=== PATIENT | female | born 1950 | race Two or more races ===

== ENCOUNTER → 2016-06-15 | Outpatient (CLI) | payer BC ==
--- NOTE | 2016-06-15 13:24 | US ---
EXAMINATION TYPE: US kidneys/renal and bladder DATE OF EXAM: 06/15/2016 12:42 PM COMPARISON: NONE CLINICAL HISTORY: 66-year-old female I10 hypertension. History of UTI. TECHNIQUE: Multiple sonographic images of the kidneys and bladder were obtained. FINDINGS: Right Kidney: 9.0 x 3.5 x 3.6cm without hydronephrosis. Left Kidney: 9.3 x 4.4 x 4.2cm without hydronephrosis. Underdistention of the bladder limits its evaluation. Neither ureteral jet is seen during the course of the exam. IMPRESSION: Renal measurements as above. No hydronephrosis on either side.
== END ==
LOC: RADUSWWP 12:02
PROVIDERS: ATTEND Family Medicine
DX: I10 Essential (primary) hypertension (principal); Z87.440 Personal history of urinary (tract) infections
CPT/HCPCS: 76770

== ENCOUNTER → 2016-07-17 | Outpatient (CLI) | payer BC ==
--- NOTE | 2016-07-18 10:17 | MM ---
Reason for exam: screening (asymptomatic). Last mammogram was performed 1 year and 1 month ago. History: Patient is postmenopausal and has history of high-risk lesion on a previous biopsy at age 58. Benign right breast needle localzation of the right breast, January 28, 2009. High risk right mammotome panel of the right breast, January 14, 2009. Benign cyst aspiration of the left breast. Physical Findings: A clinical breast exam by your physician is recommended on an annual basis and results should be correlated with mammographic findings. MG Screening Mammo w CAD Bilateral CC and MLO view(s) were taken. Prior study comparison: June 21, 2015, bilateral MG screening mammo w CAD. February 10, 2013, bilateral digital screening mammo w/CAD. The breast tissue is heterogeneously dense. This may lower the sensitivity of mammography. Finding: There are typically benign calcifications in both breasts. No significant changes in finding since June 21, 2015 and February 10, 2013. ASSESSMENT: Benign, BI-RAD 2 RECOMMENDATION: Routine screening mammogram of both breasts in 1 year.
== END | disposition home or self-care (01) ==
LOC: RADMAMWWP 08:04
PROVIDERS: ATTEND Family Medicine
DX: Z12.31 Encounter for screening mammogram for malignant neoplasm of breast (principal)

== ENCOUNTER 2016-07-28 15:55 | Inpatient (IN) | payer BC, MEDICARE ==
--- NOTE | 2016-07-28 16:27 | ED ---
Neuro HPI - General Chief Complaint: Neuro Symptoms/Deficit Stated Complaint: TIA Time Seen by Provider: 07/28/16 16:00 Source: patient, family, EMS, RN notes reviewed Mode of arrival: EMS Limitations: no limitations - History of Present Illness Is the patient presenting with stroke symptoms?: No Initial Comments: This is a 66-year-old female with a history of hypertension and cholecystectomy and a history of colitis no prior history of heart or cervical mass or disease who had the sudden onset about one hour ago of left facial droop and left-sided weakness. Patient states she was going the bathroom was on the toilet for long period time she felt abdominal discomfort and cramps she has some shaking. Her son was present was a nurse and did notice that she had some left facial droop and left upper and lower extremity weakness. This did relatively quickly resolved. Currently she is asymptomatic she denies any headache dizziness blurry vision nausea vomiting or other symptoms - Related Data Home Medications: Home Medications Medication Instructions Recorded Confirmed Pentosan Polysulfate Sodium 100 mg PO TID 02/23/14 07/28/16 [Elmiron] Travoprost [Travatan Z 0.004%] 1 drop BOTH EYES HS 02/23/14 07/28/16 amLODIPine BESYLATE [Amlodipine 5 mg PO QAM 02/23/14 07/28/16 Besylate] Calcium Carbonate [Calcium] 1,200 mg PO DAILY 07/28/16 07/28/16 Cholecalciferol [Vitamin D3] 1,000 unit PO DAILY 07/28/16 07/28/16 Hydrochlorothiazide [Hydrodiuril] 25 mg PO QAM 07/28/16 07/28/16 Valsartan [Diovan] 320 mg PO W/SUPPER 07/28/16 07/28/16 Allergies/Adverse Reactions: Allergies Allergy/AdvReac Type Severity Reaction Status Date / Time codeine AdvReac Nausea/Vomi Verified 07/28/16 17:23 ting/Vertig o Review of Systems ROS Statement: Those systems with pertinent positive or pertinent negative responses have been documented in the HPI. ROS Other: All systems not noted in ROS Statement are negative. General Exam Limitations: no limitations Stroke MDM - Lab Data Result diagrams: 07/28/16 16:15 07/28/16 16:15 Lab Results 07/28/16 07/28/16 07/28/16 Range/Units 16:15 16:15 16:15 WBC 4.9 (3.8-10.6) k/uL RBC 3.91 (3.80-5.40) m/uL Hgb 12.0 (11.4-16.0) gm/dL Hct 34.3 (34.0-46.0) % MCV 87.9 (80.0-100.0) fL MCH 30.7 (25.0-35.0) pg MCHC 34.9 (31.0-37.0) g/dL RDW 12.5 (11.5-15.5) % Plt Count 257 (150-450) k/uL Neutrophils % 69 % Lymphocytes % 21 % Monocytes % 5 % Eosinophils % 1 % Basophils % 1 % Neutrophils # 3.4 (1.3-7.7) k/uL Lymphocytes # 1.0 (1.0-4.8) k/uL Monocytes # 0.3 (0-1.0) k/uL Eosinophils # 0.1 (0-0.7) k/uL Basophils # 0.0 (0-0.2) k/uL PT (9.0-12.0) sec INR (<1.1) APTT (22.0-30.0) sec Sodium 141 (137-145) mmol/L Potassium 3.3 L (3.5-5.1) mmol/L Chloride 105 (98-107) mmol/L Carbon Dioxide 26 (22-30) mmol/L Anion Gap 10 mmol/L BUN 19 H (7-17) mg/dL Creatinine 1.24 H (0.52-1.04) mg/dL Est GFR (MDRD) Af Amer 53 (>60 ml/min/1.73 sqM) Est GFR (MDRD) Non-Af 43 (>60 ml/min/1.73 sqM) Glucose 197 H (74-99) mg/dL Calcium 9.7 (8.4-10.2) mg/dL Magnesium (1.6-2.3) mg/dL Total Bilirubin 0.5 (0.2-1.3) mg/dL AST 25 (14-36) U/L ALT 28 (9-52) U/L Alkaline Phosphatase 54 (38-126) U/L Total Creatine Kinase 68 (30-135) U/L CK-MB (CK-2) 0.9 (0.0-2.4) ng/mL CK-MB (CK-2) Rel Index 1.3 Troponin I <0.012 (0.000-0.034) ng/mL Total Protein 6.5 (6.3-8.2) g/dL Albumin 4.0 (3.5-5.0) g/dL 07/28/16 07/28/16 Range/Units 16:15 16:15 WBC (3.8-10.6) k/uL RBC (3.80-5.40) m/uL Hgb (11.4-16.0) gm/dL Hct (34.0-46.0) % MCV (80.0-100.0) fL MCH (25.0-35.0) pg MCHC (31.0-37.0) g/dL RDW (11.5-15.5) % Plt Count (150-450) k/uL Neutrophils % % Lymphocytes % % Monocytes % % Eosinophils % % Basophils % % Neutrophils # (1.3-7.7) k/uL Lymphocytes # (1.0-4.8) k/uL Monocytes # (0-1.0) k/uL Eosinophils # (0-0.7) k/uL Basophils # (0-0.2) k/uL PT 10.7 (9.0-12.0) sec INR 1.1 (<1.1) APTT 21.1 L (22.0-30.0) sec Sodium (137-145) mmol/L Potassium (3.5-5.1) mmol/L Chloride (98-107) mmol/L Carbon Dioxide (22-30) mmol/L Anion Gap mmol/L BUN (7-17) mg/dL Creatinine (0.52-1.04) mg/dL Est GFR (MDRD) Af Amer (>60 ml/min/1.73 sqM) Est GFR (MDRD) Non-Af (>60 ml/min/1.73 sqM) Glucose (74-99) mg/dL Calcium (8.4-10.2) mg/dL Magnesium 2.0 (1.6-2.3) mg/dL Total Bilirubin (0.2-1.3) mg/dL AST (14-36) U/L ALT (9-52) U/L Alkaline Phosphatase (38-126) U/L Total Creatine Kinase (30-135) U/L CK-MB (CK-2) (0.0-2.4) ng/mL CK-MB (CK-2) Rel Index Troponin I (0.000-0.034) ng/mL Total Protein (6.3-8.2) g/dL Albumin (3.5-5.0) g/dL - NIH Stroke Scale 1a. Level of Consciousness: (0) alert 1b. LOC Questions: (0) answers correctly 1c. LOC Commands: (0) performs tasks correctly 2. Best Gaze: (0) normal 3. Visual: (0) no visual loss 4. Facial Palsy: (0) normal symmetrical movement 5a. Motor Arm Left: (0) no drift 5b. Motor Arm Right: (0) no drift 6a. Motor Leg Left: (0) no drift 6b. Motor Leg Right: (0) no drift 7. Limb Ataxia: (0) absent 8. Sensory: (0) normal 9. Best Language: (0) no aphasia 10. Dysarthria: (0) normal 11. Extinction/Inattention: (0) no abnormality - Medical Decision Making I did discuss the findings with the patient family members. Patient does demonstrate evidence of a TIA. Her symptoms have totally resolved at did discuss the case with the admitting physician patient be admitted - EKG Data -: EKG Interpreted by Me EKG shows normal: sinus rhythm, axis, intervals, QRS complexes, ST-T waves Rate: normal (EKG shows a normal sinus rhythm of 70 LA interval 136 QRS duration 92 QT/QTC of 44/466 this is a normal-appearing EKG.) Past Medical History Past Medical History: Eye Disorder, GERD/Reflux, Hyperlipidemia, Hypertension Additional Past Medical History / Comment(s): GLAUCOMA LIZ EYES. ON RX FOR BLADDER CONTROL PROB. History of Any Multi-Drug Resistant Organisms: None Reported Past Surgical History: Breast Surgery Additional Past Surgical History / Comment(s): RT BREAST BX. EGD. Past Psychological History: No Psychological Hx Reported Smoking Status: Former smoker Past Alcohol Use History: Rare Past Drug Use History: None Reported - Past Family History Father Family Medical History: Cancer Course Vital Signs 07/28/16 07/28/16 16:04 17:11 Temperature 97.6 F Pulse Rate 68 75 Respiratory 18 18 Rate Blood Pressure 136/63 105/55 O2 Sat by Pulse 100 98 Oximetry - Reevaluation(s) Reevaluation #1: 07/28/16 17:37 Reevaluation the patient is return from CAT scan revealed no acute findings. Critical Care Time Critical Care Time: Yes Critical Care Time: 31 minutes of critical care time which includes initial presentation with history physical labs and x-rays reevaluation patient several occasions discussion with the patient family members regarding findings discussed with the admitting service admission orders and documentation of the above. Disposition Clinical Impression: Transient cerebral ischemia Disposition: ADMITTED IP TO THIS HOSP Condition: Stable Referrals: Mikala Mathis III, MD [Primary Care Provider] - 1-2 days
[2016-07-28 16:42] LABS: Basophils % (A) 1 %; CH 30.6; Eosinophils # (A) 0.1 k/uL (0-0.7); Eosinophils % (A) 1 %; HCT 34.3 % (34.0-46.0); HDW 2.58; Luc % (Auto) 2; Lymphocytes % (A) 21 %; MCH 30.7 pg (25.0-35.0); MCHC 34.9 g/dL (31.0-37.0); MCV 87.9 fL (80.0-100.0); Monocytes # (A) 0.3 k/uL (0-1.0); Monocytes % (A) 5 %; Neutrophils # (A) 3.4 k/uL (1.3-7.7); Neutrophils % (A) 69 %; RBC 3.91 m/uL (3.80-5.40); RDW 12.5 % (11.5-15.5); WBC 4.9 k/uL (3.8-10.6); WBC (Perox) 4.94
[2016-07-28 16:52] LABS: Calcium 9.7 mg/dL (8.4-10.2); Potassium 3.3 mmol/L (3.5-5.1); Total Bilirubin 0.5 mg/dL (0.2-1.3); Total Protein 6.5 g/dL (6.3-8.2)
[2016-07-28 16:59] LABS: INR 1.1 (<1.1); Prothrombin Time 10.7 sec (9.0-12.0)
--- NOTE | 2016-07-28 16:59 | CT ---
EXAMINATION TYPE: CT brain wo con for TPA DATE OF EXAM: 07/28/2016 4:54 PM COMPARISON: NONE HISTORY: Syncopal episode today without injury CT DLP: 1112 mGycm Automated exposure control for dose reduction was used. FINDINGS: Ventricles and sulci are within normal limits. There is no mass effect nor midline shift. There is no sign of intracranial hemorrhage. I see no sign of a cerebral infarct. Calvarium is intact. IMPRESSION: Negative unenhanced head CT scan.
[2016-07-28 17:02] LABS: Partial Thromboplastin Time 21.1 sec (22.0-30.0)
--- NOTE | 2016-07-28 17:04 | XR ---
EXAMINATION TYPE: XR chest 2V DATE OF EXAM: 07/28/2016 4:59 PM COMPARISON: 10/10/2012 HISTORY: Left-sided facial droop TECHNIQUE: Frontal and lateral views of the chest are obtained. FINDINGS: Heart and mediastinum are normal. Lungs are clear. Diaphragm is normal. There are chest le ads. Bony thorax is intact. IMPRESSION: Normal chest. No change.
[2016-07-28 17:06] LABS: Creatine Kinase 68 U/L (30-135)
[2016-07-28 17:17] LABS: Creatine Kinase MB 0.9 ng/mL (0.0-2.4); Troponin I <0.012 ng/mL (0.000-0.034)
[2016-07-28] MEDS ORDERED: ASPIRIN 81 MG CHEW PO STA (17:30)
[2016-07-28] MEDS: SODIUM CHLORIDE 0.9% 1,000 ML IV SCH (18:12)
[2016-07-28 18:27] VITALS: BMI 22.8
[2016-07-28] MEDS ORDERED: Potassium Replacement Protocol 1 EACH MISC MISCELLANE PRN (18:49)
[2016-07-28] MEDS ORDERED: POTASSIUM CHLORIDE ER 20 MEQ TAB.ER PO SCH (19:00)
[2016-07-28] MEDS: ACETAMINOPHEN TAB 325 MG TAB PO PRN (20:51)
[2016-07-28] MEDS: LATANOPROST 0.005% OPHTH DROPS 2.5 ML BTL BOTH EYES SCH (22:40)
[2016-07-28 23:14] LABS: Appearance,Urine Clear (Clear); Bilirubin,Urine Negative (Negative); Glucose,Urine (UA) Negative (Negative); Ketones,Urine Negative (Negative); Leukocyte Esterase,Urine Small (Negative); Mucus,Urine Rare /hpf; Nitrite,Urine Negative (Negative); PH, Urine 5.5 (5.0-8.0); Particle Count 436; Protein,Urine Negative (Negative); Specific Gravity,Urine 1.004 (1.001-1.035); Squamous Epithelial Cell,Urine <1 /hpf (0-4); UA Billing (MACRO vs. MICRO) MICRO; Urobilinogen,Urine <2.0 mg/dL (<2.0); WBC,Urine 4 /hpf (0-5)
[2016-07-29 04:38] LABS: Cholesterol 193 mg/dL (<200); HDL Cholesterol 66 mg/dL (40-60); Triglycerides 137 mg/dL (<150)
[2016-07-29] MEDS: HYDROCHLOROTHIAZIDE 25 MG TAB PO SCH (08:23)
[2016-07-29] MEDS: amLODIPine 5 MG TAB PO SCH (08:23)
--- NOTE | 2016-07-29 08:59 | US ---
EXAMINATION TYPE: US carotid duplex BILAT DATE OF EXAM: 07/29/2016 COMPARISON: NONE CLINICAL HISTORY: Stenosis. Syncope EXAM MEASUREMENTS: RIGHT: Peak Systolic Velocity (PSV) cm/sec ----- Right CCA: 62.7 ----- Right ICA: 121.0 ----- Right ECA: 79.0 ICA/CCA ratio: 1.9 RIGHT: End Diastole cm/sec ----- Right CCA: 21.7 ----- Right ICA: 38.6 ----- Right ECA: 14.2 LEFT: Peak Systolic Velocity (PSV) cm/sec ----- Left CCA: 85.6 ----- Left ICA: 153.5 ----- Left ECA: 81.2 ICA/CCA ratio: 1.8 LEFT: End Diastole cm/sec ----- Left CCA: 29.6 ----- Left ICA: 45.1 ----- Left ECA: 7.6 VERTEBRALS (direction of flow): Right Vertebral: Antegrade Left Vertebral: Antegrade Slightly elevated velocities bilateral ICA's, otherwise no evidence of significant stenosis seen IMPRESSION: Slightly elevated velocities bilateral ICA's, otherwise no evidence of significant steno sis seen scattered calcified plaque. Criteria for Assigning % of Stenosis / Diameter reduction (Estimation based on the indirect measurements of the internal carotid artery velocities (ICA PSV). 1. Normal (no stenosis)=ICA PSV < 125 cm/s: ratio < 2.0: ICA EDV<40 cm/s. 2. Less than 50% stenosis=ICA PSV < 125 cm/s: ratio < 2.0: ICA EDV<40 cm/s. 3. 50 to 69% stenosis=ICA PSV of 125 to 230 cm/s: ration 2.0 ? 4.0: ICA EDV 40-100 cm/s. 4. Greater than 70% stenosis to near occlusion= ICA PSV > 230 cm/s: ratio > 4.0: ICA EDV > 100 cm/s. 5. Near occlusion= ICA PSV velocities may be low or undetectable: variable ratio and ICA EDV. 6. Total occlusion=unable to detect flow.
[2016-07-29] MEDS: ELMIRON 100 MG PO SCH ×4 (11:31→20:56)
[2016-07-29] MEDS ORDERED: ASPIRIN 325 MG TAB PO SCH (12:00)
[2016-07-29 12:36] LABS: Anion Gap 9 mmol/L; Blood Urea Nitrogen 12 mg/dL (7-17); Calcium 9.3 mg/dL (8.4-10.2); Carbon Dioxide 23 mmol/L (22-30); Chloride 105 mmol/L (98-107); Glucose 92 mg/dL (74-99); Non-African American GFR(MDRD) >60 (>60 ml/min/1.73 sqM); Potassium 3.9 mmol/L (3.5-5.1); Sodium 137 mmol/L (137-145)
[2016-07-29] MEDS: CHOLECALCIFEROL 1,000 UNIT TAB PO SCH (13:40)
[2016-07-29] MEDS: CALCIUM CARBONATE PO SCH (13:40)
--- NOTE | 2016-07-29 14:07 | P.CNNES ---
History of Present Illness Consult date: 07/29/16 Reason for Consult: Patient being evaluated for TIA and left-sided weakness. History of Present Illness: This patient is a 66-year-old right-handed white female who was in her usual state of health until early this morning. Patient states she was having some abdominal cramping and some GI symptoms and decided to go to the bathroom. She was sitting on the toilet for an extended period of time due to abdominal discomfort and muscle cramping. Apparently her son who is a nurse went to check on her and found that she was appearing to be confused and dazed. He helped her out of the bathroom and helped her sit in a chair and apparently she was noted to have left-sided facial droop as well as left arm weakness. Being a nurse he did check immediately to see if she may have symptoms for stroke. According to the son who was at bedside today she was unable to lift her left arm due to heaviness and weakness. She was also noted to have left facial asymmetry. There was also some degree of weakness in the right arm as well but clearly the left arm was the worse in terms of weakness. The son also noted that she was having difficulty with expressing her thoughts. Her speech was slightly slurred. The entire episode lasted for about 5-10 minutes in duration. Son did call EMS immediately and by the time they had arrived her symptoms had been resolving to almost 80-90%. The patient was transported by EMS to the emergency room. She was seen in the ER at [facility] by Dr. Petit. Her NIH stroke scale was reviewed and was 0 in the ER. She was recommended admission for evaluation of TIA. Patient states that she is never had this type of episode previously. She did undergo a computed tomography scan of the brain in the ER which was reported negative for any acute changes. She underwent a carotid Doppler ultrasound today which revealed only slightly elevated bilateral ICA velocities. There was no evidence for significant carotid artery stenosis. When questioned about stroke risk factors patient states that she does have hard to control hypertension. She has been based on several medications by her primary care physician with poor control of her blood pressures. Apparently she has a labile hypertension with blood pressures ranging in the 200 range and dropping down into the 60 range for systolic blood pressure. The patient had seen her gas well drilling manager 3 years ago and underwent a cardiac catheterization. We have recommended that she have a cardiology consultation for reassessment now given this recent TIA. Her most recent serum cholesterol as per the patient was 238. She has tried simvastatin in the past but had to discontinue this due to muscle cramps and myalgias. The patient states that she feels she is back to normal with no further deficits. Her clinical history is consistent with acute right hemispheric TIA. We have recommended a complete stroke evaluation for the patient. Her overall prognosis at this time remains guarded. This case was discussed at length with the patient as well as her and son at bedside. All of their questions were answered. Neurology is now been consulted for further evaluation and recommendations. Review of Systems Constitutional: Denies chills, Denies fever Eyes: denies blurred vision, denies pain Ears, nose, mouth and throat: Denies headache, Denies sore throat Cardiovascular: Denies chest pain, Denies shortness of breath Respiratory: Denies cough Gastrointestinal: Denies abdominal pain, Denies diarrhea, Denies nausea, Denies vomiting Genitourinary: Denies dysuria, Denies hematuria Musculoskeletal: Denies myalgias Integumentary: Denies pruritus, Denies rash Neurological: Reports aphasia, Reports change in mentation, Reports change in speech, Reports motor disturbance, Reports paralysis, Reports paresthesias, Reports tingling, Denies numbness, Denies weakness Psychiatric: Denies anxiety, Denies depression Endocrine: Denies fatigue, Denies weight change Past Medical History Past Medical History: Eye Disorder, GERD/Reflux, Hyperlipidemia, Hypertension Additional Past Medical History / Comment(s): GLAUCOMA LIZ EYES. ON RX FOR BLADDER CONTROL PROB. History of Any Multi-Drug Resistant Organisms: None Reported Past Surgical History: Breast Surgery Additional Past Surgical History / Comment(s): RT BREAST BX. EGD. Past Psychological History: No Psychological Hx Reported Smoking Status: Former smoker Past Alcohol Use History: Rare Past Drug Use History: None Reported - Past Family History Father Family Medical History: Cancer Additional Family Medical History / Comment(s): stomach cancer Medications and Allergies Home Medications Medication Instructions Recorded Confirmed Type Pentosan Polysulfate Sodium 100 mg PO TID 02/23/14 07/28/16 History [Elmiron] Travoprost [Travatan Z 0.004%] 1 drop BOTH EYES HS 02/23/14 07/28/16 History amLODIPine BESYLATE [Amlodipine 5 mg PO QAM 02/23/14 07/28/16 History Besylate] Calcium Carbonate [Calcium] 1,200 mg PO DAILY 07/28/16 07/28/16 History Cholecalciferol [Vitamin D3] 1,000 unit PO DAILY 07/28/16 07/28/16 History Hydrochlorothiazide [Hydrodiuril] 25 mg PO QAM 07/28/16 07/28/16 History Valsartan [Diovan] 320 mg PO W/SUPPER 07/28/16 07/28/16 History Allergies Allergy/AdvReac Type Severity Reaction Status Date / Time codeine AdvReac Nausea/Vomi Verified 07/28/16 17:23 ting/Vertig o Physical Examination - Vital Signs Vital Signs: Vital Signs Temp Pulse Pulse Resp BP BP Pulse Ox 07/29/16 08:00 97 F L 73 18 140/67 100 07/29/16 07:18 154/88 07/29/16 04:00 97.7 F 58 L 18 120/67 98 07/29/16 00:00 97.6 F 68 17 130/66 99 07/28/16 20:00 97.9 F 78 18 135/79 98 07/28/16 18:44 97.1 F L 76 18 151/72 100 07/28/16 18:06 94 16 156/67 99 07/28/16 17:11 75 18 105/55 98 07/28/16 16:04 97.6 F 68 18 136/63 100 Intake and Output 07/28/16 07/29/16 07/29/16 22:59 06:59 14:59 Intake Total 600 140 Output Total 300 351 Balance -300 249 140 Intake: IV 600 140 Sodium Chloride 0.9% 1, 600 140 000 ml @ 20 mls/hr IV . Q24H [facility] Rx#:[id number] Output: Urine 300 351 Other: Voiding Method Toilet Toilet # Voids 1 Weight 54.885 kg - Constitutional General appearance: average body habitus, cooperative - EENT EENT: PERRL, mucous membranes moist - Respiratory Respiratory: lungs clear, normal breath sounds - Cardiovascular Cardiovascular: regular rate, normal S1, normal S2 Extremities: no peripheral edema bilaterally - Gastrointestinal Gastrointestinal: normoactive bowel sounds - Integumentary Integumentary: normal - Neurologic Cranial nerve examination: PERRL, EOMI, V1/V2/V3 grossly intact, face symmetric , tongue midline, intact gag reflex, intact corneal reflex, normal palatal elevation Speech examination: intact Sensorimotor examination: intact Detailed motor examination: grossly full strength in all extremities Motor examination - right side: 5/5: biceps, triceps, wrist flexion, wrist extension, embossograph operator, hip flexors, knee extensors, dorsiflexion, toe extension (EHL) , plantarflexion Motor examination - left side: 5/5: biceps, triceps, wrist flexion, wrist extension, embossograph operator, hip flexors, knee extensors, dorsiflexion, toe extension (EHL) , plantarflexion Detailed sensory examination: intact Reflex and gait examination: intact Reflexes: 1+: bicep, tricep, 2+: ankle, knee Cerebellar examination: dysmetria - Musculoskeletal Musculoskeletal: no pain - Psychiatric Psychiatric: mood/affect appropriate, cooperative Results - Laboratory Findings CBC and BMP: 07/28/16 16:15 07/29/16 11:58 Abnormal Lab Findings: Abnormal Labs 07/28/16 07/28/16 07/28/16 16:15 16:15 16:15 APTT 21.1 L Potassium 3.3 L BUN 19 H Creatinine 1.24 H Glucose 197 H LDL Cholesterol, Calc 100 H HDL Cholesterol 66 H Ur Leukocyte Esterase Urine Mucus 07/28/16 22:30 APTT Potassium BUN Creatinine Glucose LDL Cholesterol, Calc HDL Cholesterol Ur Leukocyte Esterase Small H Urine Mucus Rare H Assessment and Plan (1) Transient cerebral ischemia Status: Acute Code(s): G45.9 - TRANSIENT CEREBRAL ISCHEMIC ATTACK, UNSPECIFIED (2) Labile hypertension Status: Acute Code(s): I10 - ESSENTIAL (PRIMARY) HYPERTENSION (3) History of cardiac catheterization Status: Acute Code(s): Z98.890 - OTHER SPECIFIED POSTPROCEDURAL STATES (4) Hyperlipidemia Status: Acute Code(s): E78.5 - HYPERLIPIDEMIA, UNSPECIFIED Plan: This patient is a 66-year-old right-handed white female who was admitted to hospital with episode early this morning of significant left-sided arm weakness and left facial droop. Patient had gone to the bathroom this morning and was experiencing some abdominal discomfort with cramping. Apparently she was straining slightly and then suddenly developed acute left-sided weakness. Her son who is a nurse immediately checked on her and found her to have very little muscle strength in the left arm. He tried to hold her arm up and it would fall to her side. She was also noted to have left facial droop and some slurred speech.*Episode lasted between 5-10 minutes in duration. EMS was called to the home immediately. By the time EMS arrived her symptoms were already significantly improving. She was brought into the emergency room at [facility] for further evaluation. She was seen by Dr. Petit in the ER in her NIH stroke scale was 0. She underwent a computed tomography scan of the brain which was negative for any acute changes. She was admitted to the hospital. Patient has no previous history of TIA or stroke. She does have stroke risk factors which include labile hypertension and hypercholesterolemia. Her clinical history is consistent with acute right hemispheric TIA. We have recommended the patient to be started on 1 aspirin 81 mg daily for secondary stroke prevention. We will obtain a cardiology consultation as well. Recommend MRI/MRA of the brain for further evaluation due to bilateral arm weakness left greater than right. We have discussed all of these findings in detail with the patient as well as her son and her . All of their questions were answered. They're aware of our treatment plan and are in full agreement. We will continue close neurological follow-up of this patient during this admission. Her overall prognosis at this time remains guarded. Time with Patient: Greater than 30
[2016-07-29] MEDS: VALSARTAN 160 MG TAB PO SCH (17:10)
[2016-07-29] MEDS: ACETAMINOPHEN TAB 325 MG TAB PO PRN ×2 (17:10→21:00)
[2016-07-29] MEDS: SODIUM CHLORIDE 0.9% 1,000 ML IV SCH (17:11)
[2016-07-29] MEDS: LATANOPROST 0.005% OPHTH DROPS 2.5 ML BTL BOTH EYES SCH (20:56)
--- NOTE | 2016-07-30 07:37 | HP ---
DATE OF ADMISSION: REASON FOR ADMISSION: Syncope and left-sided weakness. HISTORY OF PRESENT ILLNESS: This is a 66-year-old female with no previous history of strokes or TIAs comes into the hospital of having a syncopal episode. Patient stated that she was having some crampy abdominal pain, for which she used the toilet. Thereafter, the pain got significantly worse and noted to have some diaphoresis and was lightheaded thereafter passed out. Patient's son who is RN was there during the episode immediately noted that patient regained consciousness within a few minutes. Noted to have some left-sided weakness on evaluation immediately with some facial droop. Patient's symptoms resolved within 10 minutes and was brought into the emergency room for further evaluation. The patient underwent a CT scan of the head, which was negative for acute intracranial abnormalities. Carotid Doppler was also done, which showed mildly elevated bilateral ICA velocities. EKG was noted to be in normal sinus rhythm. Laboratory values initially revealed mild acute kidney injury with a creatinine peaking at 1.24. Patient states that she currently works in the laundry department at a local [employer] and states that she is physically very active. Of note, the patient also states to have some epigastric pain that has been ongoing not associated with any activity, Patient states that she has had cardiac workup in the past, underwent a cardiac catheterization 4 years ago, which was noted to have normal coronaries with some anatomical differences. REVIEW OF SYSTEMS: Fourteen-point review of done; none pertinent other than what was mentioned above. Past medical history includes hypertension, GERD, dyslipidemia. Surgical history includes breast surgery, EGD, cardiac catheterization. SOCIAL HISTORY: Former smoker. Denies illicit drug use or alcohol use. FAMILY HISTORY: Pertinent for cancer in her father. Home medications include: 1. Elmiron. 2. Travatan eyedrops. 3. Amlodipine. 4. Calcium. 5. Vitamin D3. 6. Hydrochlorothiazide. 7. Diovan. Those were reviewed and reconciled. ALLERGIES: Patient is allergic to CODEINE. PHYSICAL EXAMINATION: Vital signs include temperature 97, heart rate 73, respiratory rate 18, blood pressure 140/67, saturating 100% on room air. GENERALLY: Patient appears to be alert, oriented x3. HEENT: The pupils are equal and reactive to light and accommodation. HEART: S1, S2 present. No murmur appreciated. LUNGS: Good air entry. No wheezing or rhonchi noted. ABDOMINAL EXAM: Soft, nontender, no organomegaly appreciated. GENITOURINARY: No Sanon in place. EXTREMITIES: Pulses can be palpated distally. Denies any tenderness on gross palpation. SKIN: On a gross skin exam does not appear to have any purpura or any skin rashes that were noted. NEUROLOGICALLY: Cranial nerves 2-12 intact grossly intact. No dysdiadochokinesia noted. Strength is 5/5 in all 4 extremities. Romberg sign is negative. Deep tendon reflexes are within normal limits. Laboratory data includes hemoglobin 12, hematocrit 34.3, white count 4.9, platelets of 257. Sodium 137, potassium 3.9, chloride 105, bicarb 23, BUN 12, creatinine 0.69. ASSESSMENT AND PLAN: 1. Vasovagal syncope. 2. Transient ( ) of left-sided weakness consistent with a transient ischemic attack of the right middle cerebral artery territory. 3. Dyslipidemia. 4. Hypertension, that is labile. PLAN: Patient's symptoms were less than 15 minutes. It appears to be vasovagal in nature the onset of symptoms. The patient has been monitored for 24 hours. EKG did not reveal any atrial fibrillation. Neurology has recommended MRI and MRA, which will be done overnight. Patient will be started on aspirin and Lipitor 20 mg with the diagnosis of transient ischemic attack. Patient's blood pressure is stable at this time. The cardiology consultation will be discontinued. Patient will be monitored overnight as well with neuro checks. The neurologic evaluation and findings done immediately after vasovagal episode does seem to be in question as well. However, goals of care including prevention of the next TIA or stroke were discussed with the patient and the family. Once the patient undergoes MRI, will be discharged home in stable condition.
[2016-07-30] MEDS: amLODIPine 5 MG TAB PO SCH (08:26)
[2016-07-30] MEDS: HYDROCHLOROTHIAZIDE 25 MG TAB PO SCH (08:26)
[2016-07-30] MEDS: ASPIRIN 81 MG CHEW PO SCH (08:26)
[2016-07-30] MEDS: ELMIRON 100 MG PO SCH ×3 (10:54→21:39)
--- NOTE | 2016-07-30 10:55 | ECHOF ---
Referral Reason:syncope, htn MEASUREMENTS -------- HEIGHT: 154.9 cm WEIGHT: 53.5 kg BP: 122/62 RVIDd: 2.7 cm (< 3.3) IVSd: 1.0 cm (0.6 - 1.1) LVIDd: 4.1 cm (3.9 - 5.3) LVPWd: 0.8 cm (0.6 - 1.1) IVSs: 1.4 cm LVIDs: 2.7 cm LVPWs: 1.0 cm LA Diam: 2.4 cm (2.7 - 3.8) LAESV Index (A-L): 18.01 ml/m Ao Diam: 2.8 cm (2.0 - 3.7) AV Cusp: 1.9 cm (1.5 - 2.6) MV EXCURSION: 14.664 mm (> 18.000) MV EF SLOPE: 64 mm/s (70 - 150) EPSS: 0.1 cm MV E Wil: 0.77 m/s MV DecT: 261 ms MV A Wil: 0.77 m/s MV E/A Ratio: 0.99 RAP: 5.00 mmHg RVSP: 21.42 mmHg FINDINGS -------- Sinus rhythm. This was a technically good study. The left ventricular size is normal. Left ventricular wall thickness is normal. Overall left ventricular systolic function is normal with, an EF between 60 - 65 %. The right ventricle is normal in size and function. Normal LA size by volume 22+/-6 ml/m2. The right atrium is normal in size. Aortic valve is trileaflet and is mildly thickened. The mitral valve leaflets are mildly thickened. Mild mitral annular calcification present. The tricuspid valve appears structurally normal. The pulmonic valve is normal. The aortic root size is normal. Normal inferior vena cava with normal inspiratory collapse consistent with estimated right atrial pressure of 5 mmHg. The pericardium is normal. CONCLUSIONS -------- 1. Sinus rhythm. 2. The mitral valve leaflets are mildly thickened. 3. Mild mitral annular calcification present. 4. The tricuspid valve appears structurally normal. 5. The pulmonic valve is normal. 6. The aortic root size is normal. 7. Normal inferior vena cava with normal inspiratory collapse consistent with estimated right atrial pressure of 5 mmHg. 8. The pericardium is normal. 9. This was a technically good study. 10. The left ventricular size is normal. 11. Left ventricular wall thickness is normal. 12. Overall left ventricular systolic function is normal with, an EF between 60 - 65 %. 13. The right ventricle is normal in size and function. 14. Normal LA size by volume 22+/-6 ml/m2. 15. The right atrium is normal in size. 16. Aortic valve is trileaflet and is mildly thickened. HAND CELL TUBER: Deepthi Lawton RDCS
--- NOTE | 2016-07-30 11:11 | CONS ---
DATE OF CONSULTATION: CHIEF COMPLAINT: Left-sided weakness. Ashley is a 66-year-old lady with a history of hypertension and dyslipidemia who presented to the hospital having had an episode of TIA. She developed sudden inability to talk, walk and subsequently was found to be flaccid on the left side. She gradually recovered by the time that she came to the emergency room. She was free of any focal neurological deficits. So far, the carotid duplex study shows elevated velocities of unclear significance. Patient did not have further episodes of TIA, does not have chest pain, difficulty in breathing or palpitations. She remains in sinus rhythm and there is no history of atrial fibrillation. Past medical history is significant for hypertension, dyslipidemia. Current medications include amlodipine 5 q. daily, Diovan 320 q. daily, HydroDIURIL, Lipitor and aspirin. Allergies to CODEINE. Family history is negative for premature coronary artery disease. Social history is negative for current smoking, EtOH abuse or drug abuse. REVIEW OF SYSTEMS: HEENT: Significant for transient inability to speak. 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 CARDIAC: Negative. RESPIRATORY: Negative. GI: Negative. GENITOURINARY: Negative. ALLERGY/IMMUNOLOGY: Significant for weakness. PSYCHOSOCIAL: Negative. DERMATOLOGIC: Negative. CONSTITUTIONAL: Negative. ONCOLOGICAL: Negative. On exam, comfortable at rest. Vital signs are stable. There is no jugular venous distention. Carotid upstroke is normal. There is no bruit. Chest exam reveals good air entry bilaterally. Heart exam reveals first and second heart sounds. No gallop. Abdomen is soft, nontender. Exam of the extremities did not reveal edema. Peripheral pulses are felt. Labs show that the HDL cholesterol is 66. His LDL is 100, hemoglobin is 12, creatinine is normal at 0.69. Patient had an EEG, results are pending. CT scan of the brain was negative. She had a carotid duplex study that showed increased velocities in the bilateral internal carotid arteries, but no evidence of focal stenosis. The patient is to undergo an MRI and MRA. ASSESSMENT: Transient ischemic attack, rule out cardiac source for thromboembolic phenomenon. PLAN: I will obtain a 2-D echo and schedule her for a VERNON, if the carotid work-up is negative.
[2016-07-30] MEDS: CALCIUM CARBONATE PO SCH (12:08)
[2016-07-30] MEDS: CHOLECALCIFEROL 1,000 UNIT TAB PO SCH (12:08)
--- NOTE | 2016-07-30 17:22 | MR ---
MR brain with and without contrast, MRA brain without contrast, MR angiogram neck with and without co ntrast HISTORY: Left-sided weakness, left facial droop, weakness Multiplanar multisequence and postcontrast images obtained through the brain and neck, [id number] imaging through the [place] of [place], postprocessing was performed. Patient received 20 cc MultiHanc e IV Correlation to previous CT brain 07/28/2016 Brain MRI with and without contrast: There is no restricted diffusion. The corpus callosum, pituitary , cervical medullary junction, cerebellopontine angles are normal. There is no hemorrhage or hydrocep halus. No abnormal enhancement following contrast administration. The orbits show symmetric appearanc e. Scattered hyperintensities are present within the deep white matter on inversion recovery and T2-w eighted sequences, there are approximately 30-40 lesions. Mild cortical atrophy is present. IMPRESSION: Nonspecific white matter demyelination may be due to chronic small vessel ischemia. [place] MRA: There is persistent origin of the posterior cerebral arteries bilaterally . Anterior and posterior circulations are intact. There is possible stenosis suspected at the proxima l M1 segment of the internal carotid artery on the right. There is wall irregularity noted at this le lacho. No definite filling defect. IMPRESSION: Findings could represent cerebral vascular atherosclerotic disease within the M1 segment of the internal carotid artery on the right, consider vasculitis. Contrast-enhanced exam may be of be nefit. Neck MRA with and without contrast: The common carotid, innominate, left and right subclavian, left r ight vertebral arteries, internal and external carotid arteries are patent. No evident stenosis. IMPRESSION: No evidence stenosis of the common or proximal internal carotid arteries.
[2016-07-30] MEDS: VALSARTAN 160 MG TAB PO SCH (17:39)
[2016-07-30] MEDS: SODIUM CHLORIDE 0.9% 1,000 ML IV SCH (18:07)
[2016-07-30] MEDS ORDERED: RX INFO: IV CONTRAST WAS GIVEN 1 EACH MISC MISCELLANE PRN (18:47)
--- NOTE | 2016-07-30 18:50 | P.PN ---
Subjective DATE OF ADMISSION: REASON FOR ADMISSION: Syncope and left-sided weakness. HISTORY OF PRESENT ILLNESS: This is a 66-year-old female with no previous history of strokes or TIAs comes into the hospital of having a syncopal episode. Patient stated that she was having some crampy abdominal pain, for which she used the toilet. Thereafter, the pain got significantly worse and noted to have some diaphoresis and was lightheaded thereafter passed out. Patient's son who is RN was there during the episode immediately noted that patient regained consciousness within a few minutes. Noted to have some left-sided weakness on evaluation immediately with some facial droop. Patient's symptoms resolved within 10 minutes and was brought into the emergency room for further evaluation. The patient underwent a CT scan of the head, which was negative for acute intracranial abnormalities. Carotid Doppler was also done, which showed mildly elevated bilateral ICA velocities. EKG was noted to be in normal sinus rhythm. Laboratory values initially revealed mild acute kidney injury with a creatinine peaking at 1.24. 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 Of note, the patient also states to have some epigastric pain that has been ongoing not associated with any activity, Patient states that she has had cardiac workup in the past, underwent a cardiac catheterization 4 years ago, which was noted to have normal coronaries with some anatomical differences. 07/30/16 No new overnight events doing well today states she has been having gen. weakness for the last month PHYSICAL EXAMINATION: GENERALLY: Patient appears to be alert, oriented x3. HEENT: The pupils are equal and reactive to light and accommodation. HEART: S1, S2 present. No murmur appreciated. LUNGS: Good air entry. No wheezing or rhonchi noted. ABDOMINAL EXAM: Soft, nontender, no organomegaly appreciated. GENITOURINARY: No Sanon in place. EXTREMITIES: Pulses can be palpated distally. Denies any tenderness on gross palpation. SKIN: On a gross skin exam does not appear to have any purpura or any skin rashes that were noted. NEUROLOGICALLY: Cranial nerves 2-12 intact grossly intact. No dysdiadochokinesia noted. Strength is 5/5 in all 4 extremities. Romberg sign is negative. Deep tendon reflexes are within normal limits. Objective - Vital Signs Vital signs: Vital Signs Temp 96.9 F L 07/30/16 16:00 Pulse 78 07/30/16 16:00 Resp 18 07/30/16 16:00 BP 161/77 07/30/16 16:00 Pulse Ox 99 07/30/16 16:00 Intake & Output 07/29/16 07/30/16 07/30/16 18:59 06:59 18:59 Intake Total 324 571 5859 Output Total 1150 350 400 Balance -340 -230 1920 Weight 53.8 kg Intake: IV 300 120 40 Sodium Chloride 0.9% 1, 300 120 40 000 ml @ 20 mls/hr IV . Q24H JUNAID Rx#:[id number] Oral 510 2280 Output: Urine 1150 350 400 Other: Voiding Method Toilet Toilet # Voids 3 - Labs CBC & Chem 7: 07/28/16 16:15 07/29/16 11:58 Assessment and Plan Plan: ASSESSMENT AND PLAN: 1. Vasovagal syncope. 2. Transient ischemic attack of left-sided weakness consistent with a transient ischemic attack of the right middle cerebral artery territory. 3. Dyslipidemia. 4. Hypertension, that is labile. PLAN: Patient's symptoms were less than 15 minutes. It appears to be vasovagal in nature the onset of symptoms. The patient has been monitored for 24 hours. EKG did not reveal any atrial fibrillation. MRA reviewed. Question of m1 occlusion, however no filling defect, will perform a ct angiogram TTE noted continue neuro checks moniter vitals
--- NOTE | 2016-07-30 20:16 | CT ---
EXAMINATION TYPE: CT angio head DATE OF EXAM: 07/30/2016 8:04 PM COMPARISON: NONE HISTORY: Hypertension and headache CT DLP: 1003.8 mGycm Automated exposure control for dose reduction was used. TECHNIQUE: Performed with IV Contrast, patient injected with 100 mL of Omnipaque 350. There are 3-D post processed images.. FINDINGS: There is arterial flow in the vertebrobasilar artery system. There is arterial flow in the anterior m iddle and posterior cerebral arteries. There is arterial flow in the distal internal carotid arteries . There is no mass effect. There is no midline shift. There is no pathologic enhancement. There is no evidence of aneurysm or neovascularity. There is no sign of stenosis. There is normal contrast opaci fication of the venous sinuses. IMPRESSION: NORMAL CT ANGIOGRAM OF THE BRAIN.
[2016-07-30] MEDS: ACETAMINOPHEN TAB 325 MG TAB PO PRN (20:30)
--- NOTE | 2016-07-30 21:31 | P.PN ---
Subjective This patient is a 66 year old female being evaluated for episode of left sided weakness and possible TIA. The patient was admitted yesterday for further neurological evaluation for TIA versus stroke. She was sent for MRI MRA of the brain today. MRI of the brain revealed nonspecific white matter changes consistent with chronic ischemia. 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 Patient was sent for CT angiogram for further follow-up today. This study came back normal with no evidence of any aneurysm or signs of stenosis. Patient has been doing better today. She denies any recurrence of left-sided facial weakness or left arm weakness. She was seen by cardiology who were considering VERNON procedure for this patient with TIA. The patient underwent laboratory testing and her serum cholesterol today is 193. We did review the results of her MRI MRA as well as a recent CT angiogram results with the patient today in detail. She is not had any recurrence of left-sided weakness or facial droop. We did explain the MRA that revealed a questionable area of stenosis in the M1 segment of the right internal carotid artery. CT angiogram results however came back normal. We will await further evaluation from cardiology. As noted she is being considered for VERNON procedure tomorrow. She is to continue on aspirin for secondary stroke prevention. We recommend that she have a follow-up in the outpatient neurology clinic in 3-4 weeks. We will continue close neurological follow-up for the patient during this admission. Objective - Vital Signs Vital signs: Vital Signs Temp 96.9 F L 07/30/16 16:00 Pulse 78 07/30/16 16:00 Resp 18 07/30/16 16:00 BP 161/77 07/30/16 16:00 Pulse Ox 99 07/30/16 16:00 Intake & Output 07/30/16 07/30/16 07/31/16 06:59 18:59 06:59 Intake Total 120 2320 Output Total 350 400 Balance -230 1920 Weight 53.8 kg Intake: IV 120 40 Sodium Chloride 0.9% 1, 120 40 000 ml @ 20 mls/hr IV . Q24H JUNAID Rx#:[id number] Oral 2280 Output: Urine 350 400 Other: Voiding Method Toilet Toilet # Voids 3 - Exam Physical examination: PHYSICAL EXAMINATION: Patient is resting comfortably in bed. VITAL SIGNS: Blood pressure is [161/77]. Heart rate is [78]. Respiration is [16] . Temperature is [97.0]. HEENT: Head is atraumatic, neck is supple, there were no carotid bruits. CHEST: Lungs are clear to auscultation and percussion. CARDIAC: S1, S2 normal rate and rhythm. There is no murmur. ABDOMEN: Soft and nontender. Bowel sounds are present. EXTREMITIES: There is no pedal edema. Peripheral pulses are present. Neurological examination: Patient has a nonfocal neurological examination today. - Labs CBC & Chem 7: 07/28/16 16:15 07/29/16 11:58 Assessment and Plan (1) Transient cerebral ischemia Status: Acute Code(s): G45.9 - TRANSIENT CEREBRAL ISCHEMIC ATTACK, UNSPECIFIED (2) Labile hypertension Status: Acute Code(s): I10 - ESSENTIAL (PRIMARY) HYPERTENSION (3) History of cardiac catheterization Status: Acute Code(s): Z98.890 - OTHER SPECIFIED POSTPROCEDURAL STATES (4) Hyperlipidemia Status: Acute Code(s): E78.5 - HYPERLIPIDEMIA, UNSPECIFIED Plan: This patient is a 66-year-old female who was admitted yesterday with symptoms of acute left-sided facial weakness and left arm weakness. Her clinical symptoms suggestive possibility of acute right hemispheric TIA. She underwent an MRI/MRA today the results which are noted above. MRA revealed questionable stenotic lesion in the M1 segment of the right internal carotid artery. She subsequently underwent a CT angiogram which came back normal. Patient was seen by cardiology and she is being considered for possible VERNON procedure tomorrow. She is to continue on aspirin therapy daily for secondary stroke prevention. We would recommend the patient to schedule follow-up in the outpatient neurology clinic in 3-4 weeks following discharge. We did discuss all of the test results today with the patient in detail. We will continue close neurological follow-up with the patient during this admission.
[2016-07-30] MEDS: LATANOPROST 0.005% OPHTH DROPS 2.5 ML BTL BOTH EYES SCH (21:41)
[2016-07-30 22:42] VITALS: RESP 16
[2016-07-31 07:04] LABS: Basophils % (A) 1 %; CH 30.4; CHCM 33.9; Eosinophils # (A) 0.1 k/uL (0-0.7); Eosinophils % (A) 2 %; HCT 37.5 % (34.0-46.0); HDW 2.48; HGB 12.5 gm/dL (11.4-16.0); Luc # (Auto) 0.11; Luc % (Auto) 2; Lymphocytes # (A) 1.2 k/uL (1.0-4.8); Lymphocytes % (A) 26 %; MCHC 33.3 g/dL (31.0-37.0); MCV 90.1 fL (80.0-100.0); Mean Platelet Volume 7.1; Monocytes # (A) 0.3 k/uL (0-1.0); Monocytes % (A) 6 %; Neutrophils # (A) 2.9 k/uL (1.3-7.7); Neutrophils % (A) 62 %; RBC 4.16 m/uL (3.80-5.40); RDW 12.9 % (11.5-15.5); WBC 4.6 k/uL (3.8-10.6); WBC (Perox) 5.02
[2016-07-31 07:24] LABS: ALT 27 U/L (9-52); AST 21 U/L (14-36); Alkaline Phosphatase 55 U/L (38-126); Anion Gap 9 mmol/L; Blood Urea Nitrogen 17 mg/dL (7-17); Calcium 9.7 mg/dL (8.4-10.2); Carbon Dioxide 26 mmol/L (22-30); Chloride 104 mmol/L (98-107); Glucose 94 mg/dL (74-99); Non-African American GFR(MDRD) >60 (>60 ml/min/1.73 sqM); Potassium 4.1 mmol/L (3.5-5.1); Sodium 139 mmol/L (137-145); Total Bilirubin 0.6 mg/dL (0.2-1.3); Total Protein 6.6 g/dL (6.3-8.2)
--- NOTE | 2016-07-31 08:52 | EEG ---
DATE OF SERVICE: 07/30/2016 INDICATIONS FOR EXAMINATION: This patient is a 66-year-old female being evaluated for acute left hemispheric TIA. The patient had episode of left-sided facial droop and weakness. AGE: 66Y FINDINGS: A routine 21-channel awake digital EEG recording was accomplished utilizing the 10 to 20 international system with bipolar and referential montages. The background activity in the most alert resting state consists of a low to medium amplitude fairly well developed and well sustained 7 to 8 Hz activity over the posterior head region. This posterior rhythm attenuates to eye opening. There is a small amount of low amplitude 18 to 20 Hz beta activity seen maximally over the anterior head regions. Muscle and movement artifact was observed on a few occasions during the tracing. Hyperventilation was not performed. Photic stimulation at flash frequencies of 2 to 30 Hz produced a good symmetrical occipital driving response. No epileptiform discharges were seen. IMPRESSION: This EEG is within normal limits for the patient's age. The EEG failed to reveal any focal, lateralizing or epileptiform abnormalities. Clinical correlation is recommended.
[2016-07-31] MEDS ORDERED: IV FLUID CONTINUATION 1,000 ML IV ONE (10:16)
[2016-07-31] MEDS: BENZOCAINE SPRAY 100 APPLIC/CAN MUCOUS MEM ONE ×2 (10:29→10:36)
[2016-07-31] MEDS ORDERED: fentaNYL (PF) 50 MCG/ML 2 ML AMP IV ONE (10:38)
[2016-07-31] MEDS: MIDAZOLAM 2 MG/2 ML VIAL IV ONE ×2 (10:39→10:42)
[2016-07-31 10:52] VITALS: PULSE 79
--- NOTE | 2016-07-31 11:01 | ECHOT ---
DATE OF SERVICE: INDICATION: TIA. After obtaining informed consent, transesophageal echocardiogram was performed in the left lateral position using an Omniplane probe. Local and IV sedation were obtained using Xylocaine spray, intravenous Versed and fentanyl. Patient tolerated the procedure well without any obvious immediate complications. FINDINGS: 1. There is no intracardiac thrombus within the left atrial appendage, left atrium, right atrium and right ventricle. 2. Left ventricle has normal size and systolic function. 3. There is no evidence of [id number] shunt by color flow Doppler or [id number] shunt by agitated saline contrast study. 4. Mitral valve is anatomically normal. There is trace mitral regurgitation noted. 5. Aortic valve is free of stenosis or regurgitation. 6. Tricuspid valve appears anatomically normal. Aorta shows mild atherosclerotic plaque. CONCLUSION: 1. Normal left ventricular function. 2. No intracardiac thrombus. 3. No evidence of shunting across interatrial septum.
[2016-07-31 11:10] VITALS: TEMP 97.7
[2016-07-31] MEDS: ASPIRIN 81 MG CHEW PO SCH (11:37)
[2016-07-31] MEDS: ELMIRON 100 MG PO SCH (11:37)
[2016-07-31] MEDS: HYDROCHLOROTHIAZIDE 25 MG TAB PO SCH (11:39)
[2016-07-31] MEDS: amLODIPine 5 MG TAB PO SCH (11:39)
[2016-07-31] MEDS: CALCIUM CARBONATE PO SCH (11:39)
[2016-07-31] MEDS: CHOLECALCIFEROL 1,000 UNIT TAB PO SCH (11:39)
[2016-07-31 12:56] VITALS: BP 126/68
[2016-07-31 13:30] LABS: Erythrocyte Sedimentation Rate 8 mm/hr (0-20)
--- NOTE | 2016-07-31 17:49 | P.PN ---
Subjective This patient is a 66 year old female being evaluated for episode of left sided weakness and possible TIA. The patient was admitted yesterday for further neurological evaluation for TIA versus stroke. She was sent for MRI MRA of the brain today. MRI of the brain revealed nonspecific white matter changes consistent with chronic ischemia. 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 Patient was sent for CT angiogram for further follow-up today. This study came back normal with no evidence of any aneurysm or signs of stenosis. Patient has been doing better today. She denies any recurrence of left-sided facial weakness or left arm weakness. She was seen by cardiology who were considering VERNON procedure for this patient with TIA. The patient underwent laboratory testing and her serum cholesterol today is 193. We did review the results of her MRI MRA as well as a recent CT angiogram results with the patient today in detail. She is not had any recurrence of left-sided weakness or facial droop. We did explain the MRA that revealed a questionable area of stenosis in the M1 segment of the right internal carotid artery. CT angiogram results however came back normal. The patient was seen by cardiology today. She underwent a VERNON procedure and results were reviewed today with the patient. VERNON has come back normal with no evidence of intracardiac thrombus or PFO. Patient is to be discharged home today now that the VERNON procedure has been completed. She is to continue on aspirin for secondary stroke prevention. We recommend that she have a follow-up in the outpatient neurology clinic in 3-4 weeks. We will continue close neurological follow-up for the patient during this admission. Objective - Vital Signs Vital signs: Vital Signs Temp 97.7 F 07/31/16 11:00 Pulse 79 07/31/16 10:50 Resp 16 07/31/16 11:30 BP 126/68 07/31/16 11:30 Pulse Ox 97 07/31/16 11:30 Intake & Output 07/30/16 07/31/16 07/31/16 18:59 06:59 18:59 Intake Total 2320 180 415 Output Total 400 Balance 1920 180 415 Weight 55.8 kg Intake: IV 40 180 415 Sodium Chloride 0.9% 1, 40 180 165 000 ml @ 20 mls/hr IV . Q24H JUNAID Rx#:[id number] Oral 2280 Output: Urine 400 Other: Voiding Method Toilet Toilet # Voids 3 1 - Exam Physical examination: PHYSICAL EXAMINATION: Patient is resting comfortably in bed. VITAL SIGNS: Blood pressure is [126/68]. Heart rate is [77]. Respiration is [16] . Temperature is [97.7]. HEENT: Head is atraumatic, neck is supple, there were no carotid bruits. CHEST: Lungs are clear to auscultation and percussion. CARDIAC: S1, S2 normal rate and rhythm. There is no murmur. ABDOMEN: Soft and nontender. Bowel sounds are present. EXTREMITIES: There is no pedal edema. Peripheral pulses are present. Neurological examination: Patient has a nonfocal neurological examination today. - Labs CBC & Chem 7: 07/31/16 05:56 07/31/16 05:56 Assessment and Plan (1) Transient cerebral ischemia Status: Acute Code(s): G45.9 - TRANSIENT CEREBRAL ISCHEMIC ATTACK, UNSPECIFIED (2) Labile hypertension Status: Acute Code(s): I10 - ESSENTIAL (PRIMARY) HYPERTENSION (3) History of cardiac catheterization Status: Acute Code(s): Z98.890 - OTHER SPECIFIED POSTPROCEDURAL STATES (4) Hyperlipidemia Status: Acute Code(s): E78.5 - HYPERLIPIDEMIA, UNSPECIFIED Plan: This patient is a 66-year-old female who was admitted to Hospital with symptoms of left-sided weakness and possible TIA versus stroke. Patient underwent MRI/ MRA investigations yesterday. MRA indicated possible stenotic lesion in the right internal carotid artery in the M1 segment. She subsequently underwent a CTA angiogram yesterday came back normal. Cardiology recommended VERNON procedure for the patient which was completed today. Her VERNON is entirely normal. We would recommend the patient to be maintained on aspirin daily for secondary stroke prevention. Her neurological examination is now nonfocal. We would recommend she follow up in the outpatient neurology clinic in 3-4 weeks. Overall prognosis at this time remains guarded.
--- NOTE | 2016-07-31 19:03 | P.DS ---
Providers Date of admission: 07/28/16 17:39 Attending physician: Verónica Denton Consults: 07/28/16 17:40 Consult Physician Routine Consulting Provider: Yessica Elise Consult Reason/Comments: TIA Do you want consulting provider notified?: Yes Primary care physician: Mikala Westbrook [facility] Course: DATE OF ADMISSION: REASON FOR ADMISSION: Syncope and left-sided weakness. HISTORY OF PRESENT ILLNESS: This is a 66-year-old female with no previous history of strokes or TIAs comes into the hospital of having a syncopal episode. Patient stated that she was having some crampy abdominal pain, for which she used the toilet. Thereafter, the pain got significantly worse and noted to have some diaphoresis and was lightheaded thereafter passed out. Patient's son who is RN was there during the episode immediately noted that patient regained consciousness within a few minutes. Noted to have some left-sided weakness on evaluation immediately with some facial droop. Patient's symptoms resolved within 10 minutes and was brought into the emergency room for further evaluation. The patient underwent a CT scan of the head, which was negative for acute intracranial abnormalities. Carotid Doppler was also done, which showed mildly elevated bilateral ICA velocities. EKG was noted to be in normal sinus rhythm. Laboratory values initially revealed mild acute kidney injury with a creatinine peaking at 1.24. Patient states that she currently works in the laundry department at a local residential and states that she is physically very active. Of note, the patient also states to have some epigastric pain that has been ongoing not associated with any activity, Patient states that she has had cardiac workup in the past, underwent a cardiac catheterization 4 years ago, which was noted to have normal coronaries with some anatomical differences. 07/30/16 No new overnight events doing well today states she has been having gen. weakness for the last month 07/31/16 doing well no new complaints PHYSICAL EXAMINATION: GENERALLY: Patient appears to be alert, oriented x3. HEENT: The pupils are equal and reactive to light and accommodation. HEART: S1, S2 present. No murmur appreciated. LUNGS: Good air entry. No wheezing or rhonchi noted. ABDOMINAL EXAM: Soft, nontender, no organomegaly appreciated. GENITOURINARY: No Sanon in place. EXTREMITIES: Pulses can be palpated distally. Denies any tenderness on gross palpation. SKIN: On a gross skin exam does not appear to have any purpura or any skin rashes that were noted. NEUROLOGICALLY: Cranial nerves 2-12 intact grossly intact. No dysdiadochokinesia noted. Strength is 5/5 in all 4 extremities. Romberg sign is negative. Deep tendon reflexes are within normal limits. ASSESSMENT AND PLAN: 1. Vasovagal syncope. 2. Transient ischemic attack of left-sided weakness consistent with a transient ischemic attack of the right middle cerebral artery territory. 3. Dyslipidemia. 4. Hypertension, that is labile. 5. Epigastric pain, bloating, suspect gastris, will start a trial of PPI, if refractory discussed to follow with Dr Jones no alarm symptoms reported Patient's symptoms were less than 15 minutes. It appears to be vasovagal in nature the onset of symptoms. The patient has been monitored for 24 hours. EKG did not reveal any atrial fibrillation. MRA reviewed. Question of m1 occlusion, however no filling defect. CTA is negative good intracerebral flow is seen recommend follow up with Dr Cagle states she snores early interventionist headaches, and day time sleepiness is reported may benefit from sleep study Patient Condition at Discharge: Stable Plan - Discharge Summary New Discharge Prescriptions: New Aspirin [Adult Low Dose Aspirin EC] 81 mg PO DAILY #30 tablet. Atorvastatin Calcium [Lipitor] 20 mg PO DAILY #30 tab Dicyclomine [Bentyl] 10 mg PO TID PRN #30 capsule PRN Reason: Mild Spasms Omeprazole [PriLOSEC] 40 mg PO DAILY #30 capsule. Continue Travoprost [Travatan Z 0.004%] 1 drop BOTH EYES HS amLODIPine BESYLATE [Amlodipine Besylate] 5 mg PO QAM Pentosan Polysulfate Sodium [Elmiron] 100 mg PO TID Cholecalciferol [Vitamin D3] 1,000 unit PO DAILY Calcium Carbonate [Calcium] 1,200 mg PO DAILY Valsartan [Diovan] 320 mg PO W/SUPPER Hydrochlorothiazide [Hydrodiuril] 25 mg PO QAM Discharge Medication List Pentosan Polysulfate Sodium [Elmiron] 100 mg PO TID 02/23/14 [History] Travoprost [Travatan Z 0.004%] 1 drop BOTH EYES HS 02/23/14 [History] amLODIPine BESYLATE [Amlodipine Besylate] 5 mg PO QAM 02/23/14 [History] Calcium Carbonate [Calcium] 1,200 mg PO DAILY 07/28/16 [History] Cholecalciferol [Vitamin D3] 1,000 unit PO DAILY 07/28/16 [History] Hydrochlorothiazide [Hydrodiuril] 25 mg PO QAM 07/28/16 [History] Valsartan [Diovan] 320 mg PO W/SUPPER 07/28/16 [History] Aspirin [Adult Low Dose Aspirin EC] 81 mg PO DAILY #30 tablet. 07/29/16 [Rx] Atorvastatin Calcium [Lipitor] 20 mg PO DAILY #30 tab 07/29/16 [Rx] Dicyclomine [Bentyl] 10 mg PO TID PRN #30 capsule 07/31/16 [Rx] Omeprazole [PriLOSEC] 40 mg PO DAILY #30 capsule. 07/31/16 [Rx] Follow up Appointment(s)/Referral(s): Mikala Mathis III, MD [Primary Care Provider] - 1-2 days (Office was closed, message left regarding discharge and appointment needed) Julio Jones MD [STAFF PHYSICIAN] - 09/11/16 3:15 pm Kimberley Cagle MD [STAFF PHYSICIAN] - 08/30/16 9:00 am (Appointment is next available.) Patient Instructions/Handouts: Transient Ischemic Attack (DC) Activity/Diet/Wound Care/Special Instructions: sleep study Discharge/Stand Alone Forms: Work/School Release Discharge Disposition: HOME SELF-CARE
== END 2016-07-31 13:33 | disposition home or self-care (01) | DRG 69 ==
LOC: EC 15:55 → 6SEL 17:39
PROVIDERS: ADMIT Internal Medicine; ATTEND Internal Medicine
PROC: B245ZZ4 Ultrasonography of Left Heart, Transesophageal (ICD-10-PCS; principal; 2016-07-31 10:00)
DX: G45.9 Transient cerebral ischemic attack, unspecified (principal); N17.9 Acute kidney failure, unspecified; I10 Essential (primary) hypertension; R55 Syncope and collapse; E78.5 Hyperlipidemia, unspecified; H40.9 Unspecified glaucoma; K21.9 Gastro-esophageal reflux disease without esophagitis; K29.70 Gastritis, unspecified, without bleeding; Z79.899 Other long term (current) drug therapy; Z88.5 Allergy status to narcotic agent; Z87.891 Personal history of nicotine dependence
CPT/HCPCS: 36415; 70450; 70496; 70544; 70549; 70553; 71020; 80048; 80053; 80061; 81001; 82550; 82553; 83735; 84443; 84484; 85025; 85610; 85652; 85730; 93005; 93306; 93312; 93320; 93325; 93880; 95819; 99291

== ENCOUNTER → 2017-08-21 | Outpatient (CLI) | payer MEDICARE ==
--- NOTE | 2017-08-22 12:22 | MM ---
Reason for exam: screening (asymptomatic). Last mammogram was performed 1 year and 1 month ago. History: Patient is postmenopausal and has history of high-risk lesion on a previous biopsy at age 58. Benign right breast needle localzation of the right breast, January 28, 2009. High risk right mammotome panel of the right breast, January 14, 2009. Benign cyst aspiration of the left breast. Physical Findings: A clinical breast exam by your physician is recommended on an annual basis and results should be correlated with mammographic findings. MG Screening Mammo w CAD Bilateral CC and MLO view(s) were taken. Prior study comparison: July 17, 2016, bilateral MG screening mammo w CAD. June 21, 2015, bilateral MG screening mammo w CAD. The breast tissue is heterogeneously dense. This may lower the sensitivity of mammography. No significant changes when compared with prior studies. ASSESSMENT: Negative, BI-RAD 1 RECOMMENDATION: Routine screening mammogram of both breasts in 1 year.
== END | disposition home or self-care (01) ==
LOC: RADMAMWWP 08-19 07:39
PROVIDERS: ATTEND Family Medicine
DX: Z12.31 Encounter for screening mammogram for malignant neoplasm of breast (principal)
CPT/HCPCS: 77067

== ENCOUNTER → 2017-10-18 | Outpatient (CLI) | payer MEDICARE ==
--- NOTE | 2017-10-18 07:43 | US ---
EXAMINATION TYPE: US abdomen complete DATE OF EXAM: 10/18/2017 COMPARISON: US CLINICAL HISTORY: R10.2 Pel/perineal pain, R30 Dysuria. Patient stated takes medication to help with urination; gallbladder removed; periumbilical pain EXAM MEASUREMENTS: Liver Length: 12.6 cm Gallbladder Wall: surgically removed CBD: 0.5 cm Spleen: 8.2 cm Right Kidney: 9.3 x 4.9 x 3.7 cm Left Kidney: 9.1 x 5.5 x 4.3 cm Pancreas: wnl Liver: wnl Gallbladder: surgically absent Evidence for sonographic Mcdaniel's sign: no CBD: wnl Spleen: wnl Right Kidney: No hydronephrosis or masses seen Left Kidney: No hydronephrosis or masses seen Upper IVC: wnl Abd Aorta: size is wnl, intimal thickening is noted The liver is homogenous. The intrahepatic portion of the IVC and proximal abdominal aorta are within normal limits. Common bile duct is unremarkable. The visualized portions of the pancreas are homog enous. The spleen is unremarkable. Kidneys are symmetric and free of hydronephrosis. No renal lesi ons are seen. IMPRESSION: 1. No significant abnormality seen.
--- NOTE | 2017-10-18 08:52 | US ---
EXAMINATION TYPE: US pelvis complete transvag DATE OF EXAM: 10/18/2017 COMPARISON: NONE CLINICAL HISTORY: R10.2 Pel/perineal pain, R30 Dysuria. Periumbilical pain TECHNIQUE: . Transabdominal sonographic images of the pelvis were acquired. Transvaginal sonographi c images were medically necessary to better assess the following anatomy: uterus,ovaries as bowel per istalsing is noted transabdominally and is obscuring uterus by TA US; , tubal ligation Date of LMP: NA EXAM MEASUREMENTS: Uterus: 5.9 x 4.0 x 2.1 cm Endometrial Stripe: 0.2 cm Right Ovary: 2.4 x 1.1 x 1.0 cm Left Ovary: 1.9 x 1.3 x 1.2 cm 1. Uterus: Anteverted ; Nabothian cyst noted in cervix = 0.6 x 0.5 x 0.4cm 2. Endometrium: thickness is wnl post menopause 3. Right Ovary: very small follicles 4. Left Ovary: very small follicles 5. Bilateral Adnexa: wnl 6. Posterior cul-de-sac: wnl IMPRESSION: 1. Small ovarian follicles. Cervical nabothian cysts. Otherwise unremarkable study.
== END | disposition home or self-care (01) ==
LOC: RADUSWWP 06:45
PROVIDERS: ATTEND Family Medicine
DX: N88.8 Other specified noninflammatory disorders of cervix uteri (principal); N83.02 Follicular cyst of left ovary; N83.01 Follicular cyst of right ovary
CPT/HCPCS: 76700; 76830; 76856

== ENCOUNTER → 2018-08-29 | Outpatient (CLI) | payer MEDICARE ==
--- NOTE | 2018-09-02 08:14 | MM ---
Reason for exam: screening (asymptomatic). Last mammogram was performed 1 year ago. History: Patient is postmenopausal and has history of high-risk lesion on a previous biopsy at age 58. Benign right breast needle localzation of the right breast, January 28, 2009. High risk right mammotome panel of the right breast, January 14, 2009. Benign cyst aspiration of the left breast. Physical Findings: A clinical breast exam by your physician is recommended on an annual basis and results should be correlated with mammographic findings. MG 3D Screening Mammo W/Cad Bilateral CC and MLO view(s) were taken. Prior study comparison: August 21, 2017, bilateral MG screening mammo w CAD. July 17, 2016, bilateral MG screening mammo w CAD. The breast tissue is heterogeneously dense. This may lower the sensitivity of mammography. No significant changes when compared with prior studies. ASSESSMENT: Benign, BI-RAD 2 RECOMMENDATION: Routine screening mammogram of both breasts in 1 year.
== END | disposition home or self-care (01) ==
LOC: RADMAMWWP 09:44
PROVIDERS: ATTEND Family Medicine
DX: Z12.31 Encounter for screening mammogram for malignant neoplasm of breast (principal)
CPT/HCPCS: 77063; 77067

== ENCOUNTER 2019-01-13 06:17 | Day surgery (SDC) | payer MEDICARE ==
[2019-01-12 09:03] VITALS: BMI 26.7
[~2019-01-13 06:17] MED LIST: LACTATED RINGERS 1,000 ML IV SCH; TOBRA-DEXAMET 0.3-0.1% OPHTH OINT 3.5 GM TUBE OPHTHALMIC ONE
[2019-01-13 06:44] VITALS: TEMP 98.3
[2019-01-13] MEDS: CYCLOPENTOLATE 1% OPHTH SOLN 2 ML BTL OP ONE ×3 (06:47→07:05)
[2019-01-13] MEDS: KETOROLAC 0.5% OPHTH DROPS 5 ML BTL OP ONE ×3 (06:50→07:08)
[2019-01-13] MEDS: PHENYLEPHRINE 10% OPHTH DROPS 5 ML BTL OP ONE ×3 (06:53→07:11)
[2019-01-13] MEDS ORDERED: LIDOCAINE 1% 20 ML VIAL (10MG/ML) FOR IV START INTRADERMA ONE (06:56)
[2019-01-13] MEDS ORDERED: PROPOFOL 10 MG/ML 20 ML VIAL IV ONE (07:28)
[2019-01-13] MEDS ORDERED: HYALURONATE SODIUM INTRAOCULAR 1 EACH SYRINGE (10MG/ML) INTRAOCULA ONE (07:44)
[2019-01-13] MEDS ORDERED: BALANCED SALT IRRIG SOLN COMB2 15 ML IRRIG.SOLN IRRIGATION ONE (07:44)
[2019-01-13] MEDS ORDERED: EPINEPHrine (PF) 0.5 ML in BALANCED SALT IRRIG SOLN COMB2 500 ML IRRIGATION ONE (07:45)
[2019-01-13 08:08] VITALS: RESP 18
--- NOTE | 2019-01-13 08:19 | P.OP ---
Date of Procedure: 01/13/19 Procedure(s) Performed: PREOPERATIVE DIAGNOSIS: Cataract, Moderate open angle glaucoma, right eye. POSTOPERATIVE DIAGNOSIS: Cataract, Moderate open angle glaucoma, right eye. OPERATION: Phacoemulsification of cataract, intraocular lens placement, I- Stent placement, right eye. DESCRIPTION OF PROCEDURE: The patient was taken to the operating room. Intravenous Propofol was given so as to bring about sedation. The following mixture was given for local anesthesia: 5 mL of 2% lidocaine, 5 mL of 0.75% Marcaine, and 1 mL of Wydase. Approximately 4 mL was injected in the retrobulbar space of the surgical eye. Additional 1 mL was then directed to the temporal area of the surgical eye. This was performed to allow adequate neurological block of the facial muscles. The patient was revived. The patient was prepped and draped in the usual sterile manner for the operative eye. A lid speculum was put into position. The conjunctiva was resected back from the limbus in the 12 o'clock position. Bleeding was controlled with electrocautery. A #69 blade was then used and a half-thickness scleral incision approximately 1-mm posterior to the limbus was made on bare sclera. This was shelved in the clear cornea using a crescent knife. Next a 15-degree blade was used to make a stab incision at the 3 o'clock position at the corneolimbal interface. A keratome blade was then used and the superior wound was extended into the anterior chamber. Viscoelastic was injected into the anterior chamber to maintain its form. A cystotome was used and a continuous anterior capsulotomy was made. Hydrodissection of the lens cortex using a blunt cannula and BSS was performed. A phaco probe was then introduced and a groove extending from 12 to 6 o'clock in the lens was created. A Vin wand was used through the stab incision and used to perform a divide and conquer dismantling of the cataract. An irrigation aspiration probe was utilized and any residual cortex was removed from the eye. Again, viscoelastic was injected into the anterior chamber. An Simone posterior chamber lens implant was placed in a delivery cartridge and injected into the anterior chamber. A Sinskey hook was utilized to spin the lens into position within the capsular bag. Using a hand held gonioprism for guidance, an I-stent was placed in the inferior Schlemm's canal. The irrigation and aspiration probe was again introduced and any residual viscoelastic was removed from the eye. BSS was injected via blunt canula into the limbal stab incision and the anterior chamber was re-inflated. The conjunctiva was reapproximated using electrocautery. One drop of 0.25% Timoptic was placed over the corneal along with an antibiotic ophthalmic ointment. Two sterile patches and a Hubbard eye shield were taped into position. The patient was transported to the recovery room in stable condition. Pathology: none sent Condition: stable Disposition: same day
[2019-01-13 08:36] VITALS: BP 125/76; PULSE 65
[2019-01-13] MEDS ORDERED: BUPIVACAINE (PF) 0.75% 5 ML, HYALURONIDASE, HUMAN RECOMB 150 UNIT, LIDOCAINE 2% (PF) 10... MISCELLANE ONE ×3 (23:00)
[2019-01-13] MEDS ORDERED: TIMOLOL 0.5% OPHTH DROPS 5 ML BTL OP ONE (23:00)
[2019-01-13] MEDS ORDERED: GENTAMICIN/PREDNISOL AC OPHTH OINT 3.5GM OPHTHALMIC ONE (23:00)
== END 2019-01-13 09:01 | disposition home or self-care (01) ==
LOC: OR 06:17
PROVIDERS: ATTEND Ophthalmology
DX: H25.11 Age-related nuclear cataract, right eye (principal); H40.10X2 Unspecified open-angle glaucoma, moderate stage; I10 Essential (primary) hypertension; Z88.5 Allergy status to narcotic agent; Z79.899 Other long term (current) drug therapy; Z79.82 Long term (current) use of aspirin; Z90.49 Acquired absence of other specified parts of digestive tract; Z98.890 Other specified postprocedural states; Z98.42 Cataract extraction status, left eye; Z96.1 Presence of intraocular lens
CPT/HCPCS: 66984; 66183; V2632; C1783; J3470; J2001; J0171; J2704

== ENCOUNTER → 2019-10-01 | Outpatient (CLI) | payer MEDICARE ==
--- NOTE | 2019-10-05 13:54 | MM ---
Reason for exam: screening (asymptomatic). Last mammogram was performed 1 year and 1 month ago. History: Patient is postmenopausal and has history of high-risk lesion on a previous biopsy at age 58. Benign right breast needle localzation of the right breast, January 28, 2009. High risk right mammotome panel of the right breast, January 14, 2009. Benign cyst aspiration of the left breast. Physical Findings: A clinical breast exam by your physician is recommended on an annual basis and results should be correlated with mammographic findings. MG 3D Screening Mammo W/Cad Bilateral CC and MLO view(s) were taken. Prior study comparison: August 29, 2018, bilateral MG 3d screening mammo w/cad. August 21, 2017, bilateral MG screening mammo w CAD. The breast tissue is heterogeneously dense. This may lower the sensitivity of mammography. There are benign appearing round calcifications in the left breast. ASSESSMENT: Benign, BI-RAD 2 RECOMMENDATION: Routine screening mammogram of both breasts in 1 year.
== END | disposition home or self-care (01) ==
LOC: RADMAMWWP 09:47
PROVIDERS: ATTEND Family Medicine
DX: Z12.31 Encounter for screening mammogram for malignant neoplasm of breast (principal)
CPT/HCPCS: 77063; 77067

== ENCOUNTER → 2020-09-20 | Outpatient (CLI) | payer MEDICARE ==
[2020-09-20 18:02] LABS: African American GFR (CKD) >90 (>60 ml/min/1.73 sqM); Blood Urea Nitrogen 9 mg/dL (7-17); Non-African American GFR(CKD) 89 (>60 ml/min/1.73 sqM)
--- NOTE | 2020-09-21 07:57 | CT ---
EXAMINATION TYPE: CT abdomen pelvis w con DATE OF EXAM: 09/20/2020 COMPARISON: None HISTORY: LLQ pain CT DLP: 535.4 mGycm CONTRAST: CT scan of the abdomen and pelvis is performed with Oral Contrast and with IV Contrast, patient injec jose with 100 mL of Isovue 300. FINDINGS: LUNG BASES-: No visible nodule. No infiltrate. LIVER/GB: The gallbladder is surgically absent. In the year are stable. No space occupying hepatic lesion. Biliary tree is of normal caliber. PANCREAS: No inflammation. No distinct mass. SPLEEN: No splenic enlargement. No lesion seen. ADRENALS: No nodule. No thickening. KIDNEYS/BLADDER: No hydronephrosis. No nephrolithiasis. No distinct renal mass. Urinary bladder g rossly unremarkable. BOWEL: Normal appendix. Normal bowel caliber. No inflammation. GENITAL ORGANS: No gross abnormality. LYMPH NODES: No greater than 1cm abdominal or pelvic lymph nodes are appreciated. AORTA: No significant abnormality. OSSEOUS STRUCTURES: No significant abnormality is seen. OTHER: No significant additional abnormality is seen. IMPRESSION: 1. 3. No significant abnormality to account for the patient's symptoms.
== END | disposition home or self-care (01) ==
LOC: RADCTMAIN 16:28
PROVIDERS: ATTEND Surgery
DX: R10.12 Left upper quadrant pain (principal)
CPT/HCPCS: 82565; 84520; 74177; 36415; Q9967

== ENCOUNTER → 2020-10-20 | Outpatient (CLI) | payer MEDICARE ==
--- NOTE | 2020-10-24 12:23 | MM ---
Reason for exam: screening (asymptomatic). Last mammogram was performed 1 year and 1 month ago. History: Patient is postmenopausal and has history of high-risk lesion on a previous biopsy at age 58. Benign right breast needle localzation of the right breast, January 28, 2009. High risk right mammotome panel of the right breast, January 14, 2009. Benign cyst aspiration of the left breast. Physical Findings: A clinical breast exam by your physician is recommended on an annual basis and results should be correlated with mammographic findings. MG 3D Screening Mammo W/Cad Bilateral CC and MLO view(s) were taken. Prior study comparison: October 01, 2019, bilateral MG 3d screening mammo w/cad. August 29, 2018, bilateral MG 3d screening mammo w/cad. August 21, 2017, bilateral MG screening mammo w CAD. July 17, 2016, bilateral MG screening mammo w CAD. The breast tissue is heterogeneously dense. This may lower the sensitivity of mammography. No significant changes when compared with prior studies. ASSESSMENT: Benign, BI-RAD 2 RECOMMENDATION: Routine screening mammogram of both breasts in 1 year.
== END | disposition home or self-care (01) ==
LOC: RADMAMWWP 13:16
PROVIDERS: ATTEND Family Medicine
DX: Z12.31 Encounter for screening mammogram for malignant neoplasm of breast (principal)
CPT/HCPCS: 77063; 77067

== ENCOUNTER 2021-04-20 10:39 | Inpatient (IN) | payer MEDICARE ==
[2021-04-20] MEDS ORDERED: IBUPROFEN 600 MG TAB PO STA (11:32)
[2021-04-20] MEDS ORDERED: SODIUM CHLORIDE 0.9% 500 ML 500 ML IV STA (11:59)
[2021-04-20] MEDS ORDERED: amLODIPine 5 MG TAB PO STA (12:22)
--- NOTE | 2021-04-20 12:29 | ED ---
General Adult HPI - General Source: patient Mode of arrival: ambulatory Limitations: no limitations <Lin Driscoll - Last Filed: 04/20/21 14:29> <Patricia Nieto - Last Filed: 04/24/21 00:27> - General Chief complaint: Upper Respiratory Infection Stated complaint: Covid+/High BP/SOB Time Seen by Provider: 04/20/21 11:07 - History of Present Illness Initial comments: This 71-year-old female past medical history is CVA, GERD, hypertension, hyperlipidemia since the emergency department with increased weakness after testing positive for COVID-19 on Saturday. Patient states she has a history of labile hypertension and it has been elevated at home over the last couple of days. Patient states she does take amlodipine 5 in the morning along with candesartan 16 in the morning and hydrochlorothiazide or her blood pressure. Patient states she does feel increased weakness and has a dull headache that has abdominal gone since she was tested positive for COVID-19. Patient states she does have body aches and a small cough but denies any fevers. Patient states she has been taking Tylenol home which does seem to help her body aches slightly. Patient states she has been eating and drinking as usual along with having normal bowel and bladder movements. Patient denies any chest pain, shortness of breath, abdominal pain, nausea, vomiting, change in vision, blurred vision, back pain, falls. (Lin Driscoll) - Related Data Home Medications Medication Instructions Recorded Confirmed Pentosan Polysulfate Sodium 100 mg PO TID 02/23/14 04/20/21 [Elmiron] Candesartan [Atacand] 16 mg PO DAILY 01/12/19 04/20/21 Previous Rx's Medication Instructions Recorded Aspirin [Adult Low Dose Aspirin EC] 81 mg PO DAILY #30 tablet. 07/29/16 Ascorbic Acid [Vitamin C] 1,000 mg PO DAILY #60 tab 04/21/21 Cholecalciferol [Vitamin D3 (25 50 mcg PO DAILY #60 tablet 04/21/21 Mcg = 1000 Iu)] Zinc Sulfate [Orazinc] 220 mg PO DAILY #30 cap 04/21/21 amLODIPine [Norvasc] 10 mg PO HS #30 tab 04/21/21 Allergies Allergy/AdvReac Type Severity Reaction Status Date / Time codeine AdvReac vomited/passed Verified 04/20/21 13:53 out Review of Systems ROS Other: All systems not noted in ROS Statement are negative. <Lin Driscoll - Last Filed: 04/20/21 14:29> ROS Other: All systems not noted in ROS Statement are negative. <Patricia Nieto - Last Filed: 04/24/21 00:27> ROS Statement: Those systems with pertinent positive or pertinent negative responses have been documented in the HPI. Past Medical History Past Medical History: CVA/TIA, Eye Disorder, GERD/Reflux, Hyperlipidemia, Hypertension, Osteoarthritis (OA) Additional Past Medical History / Comment(s): GLAUCOMA LIZ EYES, 2017-TIA-no re sidual effects, on rx for bladder problems, History of Any Multi-Drug Resistant Organisms: None Reported Past Surgical History: Breast Surgery, Cholecystectomy, Heart Catheterization, Tubal Ligation Additional Past Surgical History / Comment(s): rt breast biopsy. EGD. left cataract Past Anesthesia/Blood Transfusion Reactions: No Reported Reaction Past Psychological History: No Psychological Hx Reported Smoking Status: Never smoker Past Alcohol Use History: None Reported Past Drug Use History: None Reported - Past Family History Father Family Medical History: Cancer Additional Family Medical History / Comment(s): stomach cancer <Lin Driscoll - Last Filed: 04/20/21 14:29> General Exam Limitations: no limitations General appearance: alert, in no apparent distress Head exam: Present: atraumatic, normocephalic Eye exam: Present: normal appearance, PERRL, EOMI Pupils: Present: normal accommodation ENT exam: Present: mucous membranes moist Neck exam: Present: normal inspection, full ROM. Absent: tenderness, meningismus, lymphadenopathy, thyromegaly Respiratory exam: Present: normal lung sounds bilaterally. Absent: respiratory distress, wheezes, rales, rhonchi, stridor, chest wall tenderness, accessory muscle use Cardiovascular Exam: Present: regular rate, normal rhythm, normal heart sounds. Absent: systolic murmur, diastolic murmur, rubs, gallop, clicks GI/Abdominal exam: Present: soft, normal bowel sounds. Absent: distended, tenderness, guarding, rebound, rigid Extremities exam: Absent: full ROM, normal capillary refill, pedal edema, joint swelling, calf tenderness Back exam: Present: normal inspection, full ROM, CVA tenderness (L). Absent: tenderness, CVA tenderness (R), paraspinal tenderness, vertebral tenderness Neurological exam: Present: alert, oriented X3, CN II-XII intact Psychiatric exam: Present: normal affect, normal mood Skin exam: Present: warm, dry, intact, normal color. Absent: rash <GiovanadanielleLin - Last Filed: 04/20/21 14:29> Course Vital Signs 04/20/21 04/20/21 04/20/21 10:42 13:18 13:45 Temperature 98 F Pulse Rate 95 79 Pulse Rate [ Pulse Oximetery ] Respiratory 18 18 Rate Blood Pressure 171/96 188/93 159/84 Blood Pressure [Right Arm] O2 Sat by Pulse 99 100 Oximetry 04/20/21 15:19 Temperature Pulse Rate Pulse Rate [ 96 Pulse Oximetery ] Respiratory 18 Rate Blood Pressure Blood Pressure 174/81 [Right Arm] O2 Sat by Pulse 99 Oximetry Medical Decision Making - Lab Data Result diagrams: 04/20/21 12:42 04/20/21 12:42 - Radiology Data Radiology results: report reviewed <AmericoLin - Last Filed: 04/20/21 14:29> - Lab Data Result diagrams: 04/20/21 12:42 04/21/21 07:43 <Patricia Nieto - Last Filed: 04/24/21 00:27> - Medical Decision Making This 71-year-old female with past medical history of labile hypertension presents emergency department with increased weakness, fatigue and fluctuation in her blood pressure for the last couple of days. Patient's son is a nurse in the lab associate and spoke to Dr. Gauthier about his mother. Dr. Gauthier did call me and requested I give patient amlodipine 5 mg informed patient to take amlodipine 10 mg in the morning, to chlorothiazide 12.5 mg, with her candesartan 16mg in the evening. I did inform patient of these changes and wrote them down for her, she agreed to plan. I did speak to Serena from cardiology who did agree to this plan for changing her blood pressure medications, she did agree to see patient if admitted. Patient did qualify for COVID-19 antibody infusion and agreed to get the infusion without any complications. Labs revealed hyponatremia with Na 126. Fluids were started. I did speak to who agreed to admit patient to his services. Cardiology consulted for labile hypertension. Patient does follow up outpatient with Dr. Muñiz for cardiology. Infectious disease consulted for covid. Discussed this with patient who agreed to be admitted for further workup and treatment. Discussed case with the attending, Dr. Nieto. (Lin Driscoll) I was available for consultation in the emergency department. The history and physical exam were done by the midlevel provider. I was consulted for this patients care. I reviewed the case with the midlevel provider and based on their presentation of the patient, I agree with the assessment, medical decision making and plan of care as documented. Chart was dictated using [employer] dictation software. Attempts were made to correct any dictation errors however some typographical errors may persist. Patient was seen during a national state of emergency due to the Covid-19 pandemic. (Patricia Nieto) - Lab Data Lab Results 04/20/21 04/20/21 04/20/21 Range/Units 12:32 12:42 12:42 WBC 8.3 (3.8-10.6) k/uL RBC 5.06 (3.80-5.40) m/uL Hgb 15.5 (11.4-16.0) gm/dL Hct 45.2 (34.0-46.0) % MCV 89.3 (80.0-100.0) fL MCH 30.6 (25.0-35.0) pg MCHC 34.2 (31.0-37.0) g/dL RDW 12.8 (11.5-15.5) % Plt Count 391 (150-450) k/uL MPV 7.2 Neutrophils % 83 % Lymphocytes % 12 % Monocytes % 4 % Eosinophils % 0 % Basophils % 0 % Neutrophils # 6.9 (1.3-7.7) k/uL Lymphocytes # 1.0 (1.0-4.8) k/uL Monocytes # 0.3 (0-1.0) k/uL Eosinophils # 0.0 (0-0.7) k/uL Basophils # 0.0 (0-0.2) k/uL Sodium 126 L (137-145) mmol/L Potassium 4.0 (3.5-5.1) mmol/L Chloride 91 L (98-107) mmol/L Carbon Dioxide 27 (22-30) mmol/L Anion Gap 8 mmol/L BUN 11 (7-17) mg/dL Creatinine 0.67 (0.52-1.04) mg/dL Est GFR (CKD-EPI)AfAm >90 (>60 ml/min/1.73 sqM) Est GFR (CKD-EPI)NonAf 90 (>60 ml/min/1.73 sqM) Glucose 132 H (74-99) mg/dL Calcium 10.0 (8.4-10.2) mg/dL Total Bilirubin 0.5 (0.2-1.3) mg/dL AST 34 (14-36) U/L ALT 29 (4-34) U/L Alkaline Phosphatase 86 (38-126) U/L Total Protein 7.4 (6.3-8.2) g/dL Albumin 4.6 (3.5-5.0) g/dL Coronavirus (PCR) Detected A (Not Detectd) Disposition Is patient prescribed a controlled substance at d/c from ED?: No Time of Disposition: 14:15 <Lin Driscoll - Last Filed: 04/20/21 14:29> <Patricia Nieto - Last Filed: 04/24/21 00:27> Clinical Impression: Hyponatremia, Dehydration, COVID-19, Hypertension Disposition: ADMITTED IP TO THIS HOSP Condition: Serious
[2021-04-20] MEDS ORDERED: SOTROVIMAB (EUA) 500 MG in SODIUM CHLORIDE 0.9% 100 ML IVPB ONE (12:30)
[2021-04-20] MEDS ORDERED: SODIUM CHLORIDE 0.9% 50 ML IVPB ONE (12:30)
--- NOTE | 2021-04-20 12:31 | XR ---
EXAMINATION TYPE: XR chest 2V DATE OF EXAM: 04/20/2021 COMPARISON: 07/28/2016 HISTORY: 71-year-old female, positive, hypertension TECHNIQUE: PA and lateral views FINDINGS: Heart normal size. Aorta and pulmonary vasculature within normal limits. Some strandy atelectasis or scarring at the right base. Increased retrosternal clear space. No consolidation or pleural effusion. Mild degenerative disc disease mid thoracic spine. Cholecystectomy clips. IMPRESSION: Some strandy atelectasis or scarring at the right base. No definite acute process otherwise seen at t his time.
[2021-04-20 13:00] LABS: Basophils % (A) 0 %; Eosinophils % (A) 0 %; HCT 45.2 % (34.0-46.0); HGB 15.5 gm/dL (11.4-16.0); Lymphocytes % (A) 12 %; MCH 30.6 pg (25.0-35.0); MCHC 34.2 g/dL (31.0-37.0); MCV 89.3 fL (80.0-100.0); Mean Platelet Volume 7.2; Monocytes # (A) 0.3 k/uL (0-1.0); Monocytes % (A) 4 %; Neutrophils # (A) 6.9 k/uL (1.3-7.7); Neutrophils % (A) 83 %; Platelet Count 391 k/uL (150-450); RBC 5.06 m/uL (3.80-5.40); RDW 12.8 % (11.5-15.5); WBC 8.3 k/uL (3.8-10.6)
[2021-04-20 13:04] LABS: ALT 29 U/L (4-34); AST 34 U/L (14-36); African American GFR (CKD) >90 (>60 ml/min/1.73 sqM); Albumin 4.6 g/dL (3.5-5.0); Alkaline Phosphatase 86 U/L (38-126); Anion Gap 8 mmol/L; Blood Urea Nitrogen 11 mg/dL (7-17); Carbon Dioxide 27 mmol/L (22-30); Chloride 91 mmol/L (98-107); Glucose 132 mg/dL (74-99); Non-African American GFR(CKD) 90 (>60 ml/min/1.73 sqM); Sodium 126 mmol/L (137-145); Total Bilirubin 0.5 mg/dL (0.2-1.3); Total Protein 7.4 g/dL (6.3-8.2)
[2021-04-20] MEDS ORDERED: NALOXONE 0.4 MG/ML 1 ML VIAL IV PRN (14:02)
[2021-04-20] MEDS: NON FORMULARY DRUG (Pentosan Polysulfate Sodium [Elmiron] 100 MG Capsule) PO SCH ×2 (15:21→20:40)
[2021-04-20] MEDS: ASCORBIC ACID 500 MG TAB PO SCH (15:24)
[2021-04-20] MEDS: ZINC SULFATE 220 MG CAP PO SCH (15:24)
[2021-04-20] MEDS: CHOLECALCIFEROL 25 MCG (1000 IU) TABLET PO SCH (15:24)
[2021-04-20] MEDS: SODIUM CHLORIDE 0.9% 1,000 ML IV SCH ×2 (16:55→20:40)
--- NOTE | 2021-04-20 19:50 | P.HPIM ---
History of Present Illness This is a pleasant 71 years old female with past medical history of CVA/TIA,GERD, Hyperlipidemia, Hypertension, Osteoarthritis , GLAUCOMA LIZ EYES, 2016--no residual effects Patient presents Because of high blood pressure, she check her blood pressure twice and I told was elevated 183/93, Abdomen that she complains only from headache since rated as 8/10 on the front of the back of her head, headache comes and go from his associated with generalized weakness. She denies chest pain or vehicle to breathing however she's been having dry cough. No vomiting or diarrhea or abdominal pain, no urgency or dysuria. No dizziness, weakness or numbness. Patient states last Saturday she was tested positive for at that time she was complaining of from headache and sore throat. At baseline she is able to walk by herself with no difficulty. Her son works and cardiology office and upon discharge she was to follow up with Dr. Nolasco. She never smoked, denies alcohol or illicit drugs. On admission her blood pressure was elevated 171/96, currently is 135/75. Labs including CBC and liver enzymes are unremarkable. Sodium 126, creatinine is normal at 0.6. Coronavirus detected Chest x-ray showing atelectasis or scarring of the right base. No acute process. In the emergency room patient received Norvasc [address] on 10 mg at bedtime. Also she was started on vitamin C, D and zinc. And gentle hydration with normal saline with 30 mL/h, currently lowered to 75 mL per hour. Also she received sotromovimab Past Medical History Past Medical History: CVA/TIA, Eye Disorder, GERD/Reflux, Hyperlipidemia, Hypertension, Osteoarthritis (OA) Additional Past Medical History / Comment(s): GLAUCOMA LIZ EYES, 2016-TIA-no residual effects, on rx for bladder problems, History of Any Multi-Drug Resistant Organisms: None Reported Past Surgical History: Breast Surgery, Cholecystectomy, Heart Catheterization, Tubal Ligation Additional Past Surgical History / Comment(s): rt breast biopsy. EGD. left cataract Past Anesthesia/Blood Transfusion Reactions: No Reported Reaction Past Psychological History: No Psychological Hx Reported Smoking Status: Never smoker Past Alcohol Use History: None Reported Past Drug Use History: None Reported - Past Family History Father Family Medical History: Cancer Additional Family Medical History / Comment(s): stomach cancer Medications and Allergies Home Medications Medication Instructions Recorded Confirmed Type Pentosan Polysulfate Sodium 100 mg PO TID 02/23/14 04/20/21 History [Elmiron] amLODIPine BESYLATE [Amlodipine 5 mg PO HS 02/23/14 04/20/21 History Besylate] Aspirin [Adult Low Dose Aspirin EC] 81 mg PO DAILY #30 tablet. 07/29/16 04/20/21 Rx Candesartan [Atacand] 16 mg PO DAILY 01/12/19 04/20/21 History Allergies Allergy/AdvReac Type Severity Reaction Status Date / Time codeine AdvReac vomited/passed Verified 04/20/21 13:53 out Physical Exam Vitals: Vital Signs Temp Pulse Resp BP Pulse Ox 04/20/21 13:45 159/84 04/20/21 13:18 79 18 188/93 100 04/20/21 10:42 98 F 95 18 171/96 99 Intake and Output 04/19/21 04/20/21 04/20/21 22:59 06:59 14:59 Other: Weight 60.781 kg Results CBC & Chem 7: 04/20/21 12:42 04/20/21 12:42 Labs: Abnormal Lab Results - Last 24 Hours (Table) 04/20/21 04/20/21 Range/Units 12:32 12:42 Sodium 126 L (137-145) mmol/L Chloride 91 L (98-107) mmol/L Glucose 132 H (74-99) mg/dL Coronavirus (PCR) Detected A (Not Detectd) Assessment and Plan Assessment: Hypovolemic hyponatremia Hypertension, controlled on admission Acute Covid infection without pneumonia or hypoxia Hyperlipidemia History of TIA History of GERD History of bilateral, Plan: This is a pleasant 71 years old female who presents with covid pneumonia Continue with Norvasc and monitor blood pressure Continue with vitamin C, vitamin D and zinc Cardiology consult Infectious disease consult Labs and medication were reviewed.. Continue same treatment. Continue with symptomatic treatment. Resume home medication. Monitor lytes and vitals. DVT and GI prophylaxis. Further recommendations as per clinical course of the patient DVT prophylaxis: Subcutaneous Lovenox GI Prophylaxis: Pepcid
[2021-04-20] MEDS ORDERED: amLODIPine 10 MG TAB PO SCH (21:00)
--- NOTE | 2021-04-20 23:05 | P.CONS ---
History of Present Illness - Reason for Consult Consult date: 04/20/21 covid 19 Requesting physician: Jeremi E Sheet - Chief Complaint weakness x 1 week - History of Present Illness History of Present Illness : Patient is a 71-year-old female with a past medical history difficult for CVA gastroesophageal reflux disease hypertension hyperlipidemia presented to the hospital for evaluation of weakness and high blood pressure patient was diagnosed with covid19 about 6 days ago and symptoms started about a week ago patient be complaining of increased weakness dull headache along with the body aches he denies significant cough or sputum produc tion but denies of any nausea vomiting abdominal pain or any diarrhea with the symptoms the patient has been evaluated by the ER physician on arrival to the ER patient was afebrile and no fever recorded subsequently patient was not hypoxic or need for supplemental oxygen patient did have a normal white count with no lymphopenia creatinine was normal liver enzymes are normal ingram PCR was positive chest x-ray was negative for any acute infiltrate the patient has received monoclonal antibody subsequently has been admitted to the hospital infectious disease was consulted for further management Review of system: CONSTITUTIONAL: Positive for weakness denies fever. EYES: No complaint. ENT: No complaint. RESPIRATORY: As per history of present illness. CARDIOVASCULAR: No complaint. GENITOURINARY: No complaint. GASTROINTESTINAL: No complaint. MUSCULOSKELETAL: No complaint. INTEGUMENTARY : No complaint. PSYCHOLOGIC: No complaint. ENDOCRINE: No complaint. NEUROLOGIC: As per history of present illness. Past medical history : Reviewed, documented below Past surgical history : Reviewed, documented below Social history: Reviewed, documented below Medications: Reviewed, as documented below EXAMINATION: Vital sigans= Reviewed and documented below GENERAL DESCRIPTION: Elderly female lying in bed, no distress. No tachypnea or accessory muscle of respiration use. HEENT: Shows Pallor , no scleral icterus. Oral mucous membrane is dry. NECK: Trachea central, no thyromegaly. LUNGS: Unlabored breathing. Clear to auscultation anteriorly. No wheeze or crackle. HEART: S1, S2, regular rate and rhythm. ABDOMEN: Soft, no tenderness , guarding or rigidity EXTREMITIES: No edema feet SKIN: No rash, no masses palpable. NEUROLOGICAL: The patient is awake, alert, oriented x3, mood and affect normal. LABS AND RADIOLOGY: Reviewed results see below Assessment : Patient with a covid19 infection in this patient who is fully vaccinated for the covid19 with Moderna vaccine has been diagnosed with covid19 about a week ago admitted to the hospital with weakness labile hypertension however the patient is currently not hypoxic or need for supplemental oxygen no need for PT elevated symptoms are normal chest x-ray was negative Plan: 1-patient has appropriately received a monoclonal antibodies that should help 2-no need for steroids or remdesivir 3-zinc ascorbic acid and supportive treatment We will follow on clinical condition and cultures to further adjust medication if needed Thank you for this consultation we will follow the patient along with you Past Medical History Past Medical History: CVA/TIA, Eye Disorder, GERD/Reflux, Hyperlipidemia, Hypertension, Osteoarthritis (OA) Additional Past Medical History / Comment(s): GLAUCOMA LIZ EYES, 2017-TIA-no residual effects, on rx for bladder problems, History of Any Multi-Drug Resistant Organisms: None Reported Past Surgical History: Breast Surgery, Cholecystectomy, Heart Catheterization, Tubal Ligation Additional Past Surgical History / Comment(s): rt breast biopsy. EGD. left catar act Past Anesthesia/Blood Transfusion Reactions: No Reported Reaction Past Psychological History: No Psychological Hx Reported Smoking Status: Never smoker Past Alcohol Use History: None Reported Past Drug Use History: None Reported - Past Family History Father Family Medical History: Cancer Additional Family Medical History / Comment(s): stomach cancer Medications and Allergies Home Medications Medication Instructions Recorded Confirmed Type Pentosan Polysulfate Sodium 100 mg PO TID 02/23/14 04/20/21 History [Elmiron] amLODIPine BESYLATE [Amlodipine 5 mg PO HS 02/23/14 04/20/21 History Besylate] Aspirin [Adult Low Dose Aspirin EC] 81 mg PO DAILY #30 tablet. 07/29/16 04/20/21 Rx Candesartan [Atacand] 16 mg PO DAILY 01/12/19 04/20/21 History Allergies Allergy/AdvReac Type Severity Reaction Status Date / Time codeine AdvReac vomited/passed Verified 04/20/21 13:53 out Physical Exam Vitals: Vital Signs Temp Pulse Resp BP Pulse Ox 04/20/21 13:45 159/84 04/20/21 13:18 79 18 188/93 100 04/20/21 10:42 98 F 95 18 171/96 99 Intake and Output 04/20/21 04/20/21 04/20/21 06:59 14:59 22:59 Other: Weight 60.781 kg Results CBC & Chem 7: 04/20/21 12:42 04/20/21 12:42 Labs: Abnormal Lab Results - Last 24 Hours (Table) 04/20/21 04/20/21 Range/Units 12:32 12:42 Sodium 126 L (137-145) mmol/L Chloride 91 L (98-107) mmol/L Glucose 132 H (74-99) mg/dL Coronavirus (PCR) Detected A (Not Detectd)
[2021-04-21 06:23] VITALS: RESP 16
[2021-04-21] MEDS: ENOXAPARIN 40 MG/0.4 ML SYRINGE SQ SCH ×2 (08:29→08:45)
[2021-04-21] MEDS: ASCORBIC ACID 500 MG TAB PO SCH (08:29)
[2021-04-21] MEDS: CHOLECALCIFEROL 25 MCG (1000 IU) TABLET PO SCH (08:29)
[2021-04-21] MEDS: ZINC SULFATE 220 MG CAP PO SCH (08:30)
[2021-04-21] MEDS ORDERED: ASPIRIN 81 MG PO SCH (09:00)
[2021-04-21] MEDS ORDERED: NON FORMULARY DRUG (Pentosan Polysulfate Sodium [Elmiron] 100 MG Capsule) PO SCH (09:00)
[2021-04-21] MEDS ORDERED: FAMOTIDINE 20 MG/2 ML VIAL IV SCH (09:00)
[2021-04-21] MEDS ORDERED: LOSARTAN 50 MG TAB PO SCH (09:00)
--- NOTE | 2021-04-21 10:52 | P.CRDCN ---
History of Present Illness History of present illness: HISTORY OF PRESENTING ILLNESS This is a pleasant 71-year-old female past medical history significant for hypertension, dyslipidemia, TIA. She used to follow in the office with Dr. Nolasco, has not seen in follow-up since 2018. We have been asked to see in consultation for hypertension. Patient presents emergency department with the complaints of dizziness and lightheadeness at home. She states she took her blood pressure and it was 200s/100s. She states she was worried and had some slight chest discomfort and decided to come to the emergency department. Her chest discomfort resolved on its own. Her chest pain was nonexertional, nonradiating. She had no associated symptoms. She denies any shortness of breath, palpitations, syncope or near-syncope, she currently denies any chest p ain. She denies any symptoms of orthopnea or PND. She states she had symptoms of a headache and dry cough on Saturday and was tested positive for Covid 19. On admission patient's blood pressure was 171/96, heart rate 95. Her amlodipine was increased from 5 mg to 10 mg. Her blood pressures improved. Blood pressure 118/77, heart 74 this morning. DIAGNOSTICS Chest xray strandy atelectasis of the right base. No acute pulmonary process. Laboratory reviewed CBC unremarkable, sodium 126, potassium 4.0, BUN 11, serum creatinine 0.67, Covid positive Current home medications include amlodipine 5 mg nightly, candesartan 16 mg daily, aspirin 81 mg daily. Transesophageal echocardiogram 2017 revealed normal left ventricular systolic function, no intracardiac thrombus, no evidence of shunting across intra- arterial septum. REVIEW OF SYSTEMS At the time of my exam: CONSTITUTIONAL: Denies fever or chills. CARDIOVASCULAR: Denies chest pain, shortness of breath, orthopnea, PND or palpitations. RESPIRATORY: Denies cough. GASTROINTESTINAL: Denies abdominal pain, diarrhea, constipation, nausea or vomiting. MUSCULOSKELETAL: Denies myalgias. NEUROLOGIC: Denies numbness, tingling, headacbe or weakness. ENDOCRINE: Denies fatigue, weight change, polydipsia or polyurina. GENITOURINARY: Denies burning, hematuria or urgency with micturation. HEMATOLOGIC: Denies history of anemia or bleeding. PHYSICAL EXAMINATION Blood pressure 18/77, heart 74 afebrile, 98% on room air CONSTITUTIONAL: No apparent distress. HEENT: Head is normocephalic. Pupils are equal, round. Sclerae anicteric. Mucous membranes of the mouth are moist. No JVD. No carotid bruit. CHEST EXAMINATION: Lungs are clear to auscultation. No chest wall tenderness is noted on palpation or with deep breathing. HEART EXAMINATION: Regular rate and rhythm. S1, S2 heard. No murmurs, gallops or rub. ABDOMEN: Soft, nontender. Positive bowel sounds. EXTREMITIES: 2+ peripheral pulses, no lower extremity edema and no calf tenderness. NEUROLOGIC EXAMINATION: Patient is awake, alert and oriented x3. ASSESSMENT Hypertension Dyslipidemia History of TIA PLAN Patient's BP has improved on current medication regimen. Would continue. Obtain 2D echocardiogram and doppler study to assess cardiac structure and function. No indication for further cardiac workup unless there is segmental wall motion abnormality on the echo. Recommend follow up outpatient. Nurse practitioner note has been reviewed by physician. Signing provider agrees with the documented findings, assessment, and plan of care. Past Medical History Past Medical History: CVA/TIA, Eye Disorder, GERD/Reflux, Hyperlipidemia, Hypertension, Osteoarthritis (OA) Additional Past Medical History / Comment(s): GLAUCOMA LIZ EYES, 2017-TIA-no residual effects, on rx for bladder problems, History of Any Multi-Drug Resistant Organisms: None Reported Past Surgical History: Breast Surgery, Cholecystectomy, Heart Catheterization, Tubal Ligation Additional Past Surgical History / Comment(s): rt breast biopsy. EGD. left cataract Past Anesthesia/Blood Transfusion Reactions: No Reported Reaction Past Psychological History: No Psychological Hx Reported Smoking Status: Never smoker Past Alcohol Use History: None Reported Past Drug Use History: None Reported - Past Family History Father Family Medical History: Cancer Additional Family Medical History / Comment(s): stomach cancer Medications and Allergies Home Medications Medication Instructions Recorded Confirmed Type Pentosan Polysulfate Sodium 100 mg PO TID 02/23/14 04/20/21 History [Elmiron] amLODIPine BESYLATE [Amlodipine 5 mg PO HS 02/23/14 04/20/21 History Besylate] Aspirin [Adult Low Dose Aspirin EC] 81 mg PO DAILY #30 tablet. 07/29/16 04/20/21 Rx Candesartan [Atacand] 16 mg PO DAILY 01/12/19 04/20/21 History Allergies Allergy/AdvReac Type Severity Reaction Status Date / Time codeine AdvReac vomited/passed Verified 04/20/21 13:53 out Physical Exam Vitals: Vital Signs Temp Pulse Pulse Resp BP BP Pulse Ox 04/21/21 06:00 98.2 F 74 16 118/77 98 04/21/21 02:00 98.4 F 72 17 137/68 99 04/20/21 22:00 98.6 F 68 16 119/73 99 04/20/21 20:47 97 04/20/21 20:00 72 17 04/20/21 18:00 98.5 F 84 16 135/75 99 04/20/21 15:19 96 18 174/81 99 04/20/21 13:45 159/84 04/20/21 13:18 79 18 188/93 100 04/20/21 10:42 98 F 95 18 171/96 99 Intake and Output 04/20/21 04/21/21 04/21/21 22:59 06:59 14:59 Intake Total 296 Balance 296 Intake: Oral 296 Other: Voiding Method Toilet # Voids 0 4 Weight 60.781 kg Results 04/20/21 12:42 04/20/21 12:42 Cardiac Enzymes 04/20/21 Range/Units 12:42 AST 34 (14-36) U/L CBC 04/20/21 Range/Units 12:42 WBC 8.3 (3.8-10.6) k/uL RBC 5.06 (3.80-5.40) m/uL Hgb 15.5 (11.4-16.0) gm/dL Hct 45.2 (34.0-46.0) % Plt Count 391 (150-450) k/uL Comprehensive Metabolic Panel 04/20/21 Range/Units 12:42 Sodium 126 L (137-145) mmol/L Potassium 4.0 (3.5-5.1) mmol/L Chloride 91 L (98-107) mmol/L Carbon Dioxide 27 (22-30) mmol/L BUN 11 (7-17) mg/dL Creatinine 0.67 (0.52-1.04) mg/dL Glucose 132 H (74-99) mg/dL Calcium 10.0 (8.4-10.2) mg/dL AST 34 (14-36) U/L ALT 29 (4-34) U/L Alkaline Phosphatase 86 (38-126) U/L Total Protein 7.4 (6.3-8.2) g/dL Albumin 4.6 (3.5-5.0) g/dL Current Medications Generic Name Dose Route Start Last Admin Trade Name Freq PRN Reason Stop Dose Admin Amlodipine Besylate 10 mg 04/20/21 21:00 04/20/21 20:40 Amlodipine 10 Mg Tab PO 10 mg HS JUNAID Administration Ascorbic Acid 1,000 mg 04/20/21 14:30 04/21/21 08:29 Ascorbic Acid 500 Mg Tab PO 1,000 mg DAILY JUNAID Administration Aspirin 81 mg 04/21/21 09:00 04/21/21 08:30 Aspirin 81 Mg PO 81 mg DAILY JUNAID Administration Cholecalciferol 50 mcg 04/20/21 14:30 04/21/21 08:29 Cholecalciferol 25 Mcg (1000 Iu) Tablet PO 50 mcg DAILY JUNAID Administration Enoxaparin Sodium 40 mg 04/21/21 07:00 04/21/21 08:45 Enoxaparin 40 Mg/0.4 Ml Syringe SQ Not Given DAILY JUNAID Famotidine 20 mg 04/21/21 09:00 04/21/21 07:40 Famotidine 20 Mg/2 Ml Vial IV 20 mg Q12HR JUNAID Administration Sodium Chloride 1,000 mls @ 75 mls/hr 04/20/21 14:15 04/20/21 20:40 Saline 0.9% IV 75 mls/hr .[id number] JUNAID Administration Losartan Potassium 100 mg 04/21/21 09:00 04/21/21 08:30 Losartan 50 Mg Tab PO 100 mg DAILY JUNAID Administration Naloxone HCl 0.2 mg 04/20/21 14:02 Naloxone 0.4 Mg/Ml 1 Ml Vial IV Q2M PRN Opioid Reversal Non-Formulary Medication 100 mg 04/21/21 09:00 04/21/21 08:30 Pentosan Polysulfate Sodium [Elmiron] PO 100 mg TID JUNAID Administration Zinc Sulfate 220 mg 04/20/21 14:30 04/21/21 08:30 Zinc Sulfate 220 Mg Cap PO 220 mg DAILY JUNAID Administration Intake and Output 04/20/21 04/21/21 04/21/21 22:59 06:59 14:59 Intake Total 296 Balance 296 Intake: Oral 296 Other: Voiding Method Toilet # Voids 0 4 Weight 60.781 kg 04/20/21 12:42 04/20/21 12:42
--- NOTE | 2021-04-21 12:06 | ECHOF ---
Referral Reason:LV function MEASUREMENTS -------- HEIGHT: 152.4 cm WEIGHT: 60.8 kg BP: RVIDd: 2.5 cm (< 3.3) IVSd: 0.8 cm (0.6 - 1.1) LVIDd: 3.2 cm (3.9 - 5.3) LVPWd: 1.0 cm (0.6 - 1.1) IVSs: 1.5 cm LVIDs: 2.3 cm LVPWs: 1.0 cm LA Diam: 2.5 cm (2.7 - 3.8) LAESV Index (A-L): 17.96 ml/m Ao Diam: 3.0 cm (2.0 - 3.7) AV Cusp: 2.0 cm (1.5 - 2.6) MV EXCURSION: 13.883 mm (> 18.000) MV EF SLOPE: 55 mm/s (70 - 150) EPSS: 0.1 cm MV E Wil: 0.76 m/s MV DecT: 157 ms MV A Wil: 0.91 m/s MV E/A Ratio: 0.83 FINDINGS -------- Sinus rhythm. This was a technically adequate study. The left ventricular size is normal. Left ventricular wall thickness is normal. Overall left vent ricular systolic function is normal with, an EF between 55 - 60 %. The diastolic filling pattern is normal for the age of the patient 11.66. The right ventricle is normal in size. Normal LA size by volume 22+/-6 ml/m2. The right atrium is normal in size. Interatrial and interventricular septum intact. The aortic valve is trileaflet, and appears structurally normal. No aortic stenosis or regurgitation. The mitral valve is normal. There is trace to mild mitral regurgitation. The tricuspid valve appears structurally normal. Trace tricuspid regurgitation present. There is no pulmonic regurgitation present. The aortic root size is normal. Normal inferior vena cava with normal inspiratory collapse consistent with estimated right atrial pre ssure of 5 mmHg. There is no pericardial effusion. CONCLUSIONS -------- 1. Left ventricular wall thickness is normal. 2. Overall left ventricular systolic function is normal with, an EF between 55 - 60 %. 3. The aortic valve is trileaflet, and appears structurally normal. No aortic stenosis or regurgitati on. 4. There is trace to mild mitral regurgitation. 5. Trace tricuspid regurgitation present. 6. There is no pericardial effusion. MANAGER SOCIAL: Deepthi Lawton RDCS
[2021-04-21 12:07] LABS: African American GFR (CKD) 94.2 (60.0-200.0); Anion Gap 10.8 mmol/L (10.00-18.00); BUN/Creat Ratio 11.62 Ratio (12.00-20.00); Blood Urea Nitrogen 8.7 mg/dL (9.0-27.0); Calcium 9.2 mg/dL (8.7-10.3); Carbon Dioxide 24.6 mmol/L (20.0-27.5); Non-African American GFR(CKD) 81.3 (60.0-200.0)
[2021-04-21] MEDS: SODIUM CHLORIDE 0.9% 1,000 ML IV SCH (12:35)
[2021-04-21 14:18] VITALS: BP 114/69; PULSE 80; TEMP 97.9
[2021-04-21] MEDS ORDERED: FAMOTIDINE 20 MG TAB PO SCH (21:00)
== END 2021-04-21 15:04 | disposition home or self-care (01) | DRG 640 ==
LOC: EC 10:39 → 4SSUR 14:02
PROVIDERS: ADMIT Internal Medicine; ATTEND Internal Medicine
PROC: XW033H6 Introduction of Other New Technology Monoclonal Antibody into Peripheral Vein, Percutaneous Approach, New Technology Group 6 (ICD-10-PCS; principal; 2021-04-20)
DX: E87.1 Hypo-osmolality and hyponatremia (principal); U07.1 COVID-19; J98.11 Atelectasis; E86.1 Hypovolemia; I10 Essential (primary) hypertension; E78.5 Hyperlipidemia, unspecified; E86.0 Dehydration; Z88.5 Allergy status to narcotic agent; Z79.82 Long term (current) use of aspirin; Z80.0 Family history of malignant neoplasm of digestive organs; Z86.73 Personal history of transient ischemic attack (TIA), and cerebral infarction without residual deficits; Z98.42 Cataract extraction status, left eye
CPT/HCPCS: 36415; 71046; 80048; 80053; 85025; 87635; 93308; 99285

== ENCOUNTER 2021-09-08 20:59 | Emergency (ER) | payer MEDICARE ==
[2021-09-08 21:21] VITALS: TEMP 97.8
--- NOTE | 2021-09-08 21:39 | XR ---
Bowel according to old fracture 1 year 100 EXAMINATION TYPE: XR hand complete RT, XR wrist complete R T DATE OF EXAM: 09/08/2021 CLINICAL HISTORY: pain TECHNIQUE: Frontal, lateral and oblique images of the right uterus hand are obtained. COMPARISON: None. FINDINGS: There is a distal radial fracture with mild impaction noted. There is evidence of intra-art icular extension. Displacement of approximately 2 mm. Soft tissue edema noted. There appears to be no ndisplaced fracture at the base of the ulnar styloid. IMPRESSION: Distal radial fracture with intra-articular extension. Nondisplaced fracture is suspected at the base of the ulnar styloid process.
--- NOTE | 2021-09-08 22:02 | ED ---
Upper Extremity HPI - General Chief Complaint: Extremity Injury, Upper Stated Complaint: Rt Wrist Injury Time Seen by Provider: 09/08/21 21:47 Source: patient, RN notes reviewed, old records reviewed Mode of arrival: ambulatory Limitations: no limitations - History of Present Illness Initial Comments: This is a 71-year-old female to the emergency department for evaluation. Patient is a trip and fall while trying to gather dog the dog was acting a little rambunctious and not patient over. Patient does have right wrist pain and tenderness. No other complaints of injury or pain. Fall injury occurred just prior to arrival MD Complaint: Injury to:: right -: minutes(s) Other Extremity Injury: Wrist: Right Other Injuries: none Handedness: right Place: home Severity scale (1-10): 6 Improves With: none Worsens With: none Context: fall Associated Symptoms: denies other symptoms Treatments Prior to Arrival: cold therapy, bandage - Related Data Home Medications Medication Instructions Recorded Confirmed Pentosan Polysulfate Sodium 100 mg PO TID 02/23/14 04/20/21 [Elmiron] Candesartan [Atacand] 16 mg PO DAILY 01/12/19 04/20/21 Previous Rx's Medication Instructions Recorded Aspirin [Adult Low Dose Aspirin EC] 81 mg PO DAILY #30 tablet. 07/29/16 Ascorbic Acid [Vitamin C] 1,000 mg PO DAILY #60 tab 04/21/21 Cholecalciferol [Vitamin D3 (25 50 mcg PO DAILY #60 tablet 04/21/21 Mcg = 1000 Iu)] Zinc Sulfate [Orazinc] 220 mg PO DAILY #30 cap 04/21/21 amLODIPine [Norvasc] 10 mg PO HS #30 tab 04/21/21 Allergies Allergy/AdvReac Type Severity Reaction Status Date / Time codeine AdvReac vomited/passed Verified 09/08/21 21:21 out Review of Systems ROS Statement: Those systems with pertinent positive or pertinent negative responses have been documented in the HPI. ROS Other: All systems not noted in ROS Statement are negative. Past Medical History Past Medical History: CVA/TIA, Eye Disorder, GERD/Reflux, Hyperlipidemia, Hypertension, Osteoarthritis (OA) Additional Past Medical History / Comment(s): GLAUCOMA LIZ EYES, 2017-TIA-no residual effects, on rx for bladder problems, History of Any Multi-Drug Resistant Organisms: None Reported Past Surgical History: Breast Surgery, Cholecystectomy, Heart Catheterization, Tubal Ligation Additional Past Surgical History / Comment(s): rt breast biopsy. EGD. left cataract Past Anesthesia/Blood Transfusion Reactions: No Reported Reaction Past Psychological History: No Psychological Hx Reported Smoking Status: Never smoker Past Alcohol Use History: None Reported Past Drug Use History: None Reported - Past Family History Father Family Medical History: Cancer Additional Family Medical History / Comment(s): stomach cancer General Exam Limitations: no limitations General appearance: alert, in no apparent distress Head exam: Present: atraumatic, normocephalic, normal inspection Eye exam: Present: normal appearance, PERRL, EOMI. Absent: scleral icterus, conjunctival injection, periorbital swelling ENT exam: Present: normal exam, mucous membranes moist Neck exam: Present: normal inspection. Absent: tenderness, meningismus, lymphadenopathy Respiratory exam: Present: normal lung sounds bilaterally. Absent: respiratory distress, wheezes, rales, rhonchi, stridor Cardiovascular Exam: Present: regular rate, normal rhythm, normal heart sounds. Absent: systolic murmur, diastolic murmur, rubs, gallop, clicks GI/Abdominal exam: Present: soft, normal bowel sounds. Absent: distended, tenderness, guarding, rebound, rigid Extremities exam: Present: normal inspection, full ROM, normal capillary refill, other (Right wrist tenderness, full range of motion). Absent: tenderness, pedal edema, joint swelling, calf tenderness Back exam: Present: normal inspection Neurological exam: Present: alert, oriented X3, CN II-XII intact Psychiatric exam: Present: normal affect, normal mood Skin exam: Present: warm, dry, intact, normal color. Absent: rash Course Vital Signs 09/08/21 21:19 Temperature 97.8 F Pulse Rate 79 Respiratory 18 Rate Blood Pressure 170/75 O2 Sat by Pulse 97 Oximetry - Reevaluation(s) Reevaluation #1: 09/08/21 22:00 Medical record is reviewed Reevaluation #2: 09/08/21 22:00 Patient does not require anything for pain control Reevaluation #3: 09/08/21 22:00 Patient informed of results and questions answered Medical Decision Making - Medical Decision Making 71-year-old female to the emergency department status post fall trip and fall while trying to reach her dog to her daughter. Patient fall landing on right arm does have right radius fracture, fracture splinted and patient can be discharged home - Radiology Data Radiology results: report reviewed (X-ray right wrist positive for radius fra cture), image reviewed Disposition Clinical Impression: Fall, Right wrist fracture Disposition: HOME SELF-CARE Condition: Good Instructions (If sedation given, give patient instructions): Wrist Injury (ED), Arm Fracture in Adults (ED) Is patient prescribed a controlled substance at d/c from ED?: No Referrals: Mikala Mathis III, MD [Primary Care Provider] - 1-2 days Peggy Up DO [Doctor of Osteopathic Medicine] - 1-2 days Time of Disposition: 22:00
[2021-09-08 22:29] VITALS: BP 165/94; PULSE 78; RESP 16
== END 2021-09-08 22:28 | disposition home or self-care (01) ==
LOC: EC 20:59
DX: S62.101A Fracture of unspecified carpal bone, right wrist, initial encounter for closed fracture (principal); Z86.73 Personal history of transient ischemic attack (TIA), and cerebral infarction without residual deficits; E78.5 Hyperlipidemia, unspecified; I10 Essential (primary) hypertension; Z88.5 Allergy status to narcotic agent; W01.0XXA Fall on same level from slipping, tripping and stumbling without subsequent striking against object, initial encounter
CPT/HCPCS: 99283

== ENCOUNTER → 2021-11-16 | Outpatient (CLI) | payer MEDICARE ==
--- NOTE | 2021-11-17 07:41 | MM ---
Reason for Exam: Screening (asymptomatic). Last mammogram was performed 1 year(s) and 1 month(s) ago. Patient History: Menarche at age 14. First Full-Term at age 27. Postmenopausal. Benign Cyst Aspiration on the left side. 01/28/2009, Benign Excisional Biopsy on the right side. 01/14/2009, High risk Core Biopsy on the right side. Risk Values: Rachel 5 year model risk: 2.9%. NCI Lifetime model risk: 8.3%. Prior Study Comparison: 08/29/2018 Bilateral Screening Mammogram, [facility]. 10/01/2019 Bilateral Screening Mammogram, [facility]. 10/20/2020 Bilateral Screening Mammogram, [facility]. Tissue Density: The breast tissue is heterogeneously dense. This may lower the sensitivity of mammography. Findings: Analyzed By CAD. There is no suspicious group of microcalcifications or new suspicious mass in either breast. Overall Assessment: Negative, BI-RAD 1 Management: Screening Mammogram of both breasts in 1 year. A clinical breast exam by your physician is recommended on an annual basis and results should be correlated with mammographic findings. Electronically signed and approved by: Luis Jimenez M.D. Radiologis
== END | disposition home or self-care (01) ==
LOC: RADMAMWWP 12:07
PROVIDERS: ATTEND Family Medicine
DX: Z12.31 Encounter for screening mammogram for malignant neoplasm of breast (principal)
CPT/HCPCS: 77063; 77067

== ENCOUNTER → 2022-01-10 | Outpatient (CLI) | payer MEDICARE ==
--- NOTE | 2022-01-10 14:23 | BD ---
EXAMINATION TYPE: Axial Bone Density DATE OF EXAM: 01/10/2022 COMPARISON: 12/21/2015 CLINICAL HISTORY: 71 years year old Female. ICD-10 CODE: R29.890 LOSS OF HEIGHT Height: Weight: FRAX RISK QUESTIONS: Alcohol (3 or more units per day): NO Family History (Parent hip fracture): NO History of Fracture in Adulthood: YES Secondary Osteoporosis: NO Rheumatoid Arthritis: NO Current Tobacco Use: NO RISK FACTORS HISTORY OF: Family History of Osteoporosis: NO Active: YES Diet low in dairy products/other sources of calcium: YES Postmenopausal woman: YES AGE 52 Lost more than 2 inches in height since high school: NO MEDICATIONS: Additional Medications: YES HBP , BLADDER MEDS , BABY ASPIRIN EXAM MEASUREMENTS: Bone mineral densitometry was performed using the [employer] System. Bone mineral density as measured about the Lumbar spine is: ----- L1-L4(G/cm2): 1.094 T Score Values are as follows: ----- L1: -1.3 ----- L2: -0.7 ----- L3: -0.1 ----- L4: -0.9 ----- L1-L4: -0.7 Bone mineral density has: Decreased -2.8% since study of: 12/21/2015 Bone mineral density about the R hip (g/cm2): 0.920 Bone mineral density about the L hip (g/cm2): 0.912 T Score values are as follows: -----R Neck: -1.1 -----L Neck: -1.6 -----R Total: -0.7 -----L Total: -0.8 Bone mineral density has: Increased 0.7% since study of: 12/21/2015 FRAX%s: The graph provided illustrates a 6.0% chance for a major osteoporotic fx and a 1.0% chance fo r the hips probability for fx in 10 years time. IMPRESSION: Osteopenia (T Score between -2.5 and -1). There is slightly increased risk of fracture and the patient may be considered for treatment. Re-Screen 2-5 years. NOTE: T-SCORE=SD OF THE YOUNG ADULT MEAN.
== END | disposition home or self-care (01) ==
LOC: RADBDWWP 10:26
PROVIDERS: ATTEND Family Medicine
DX: M85.89 Other specified disorders of bone density and structure, multiple sites (principal); R29.890 Loss of height
CPT/HCPCS: 77080

== ENCOUNTER → 2022-12-06 | Outpatient (CLI) | payer MEDICARE ==
--- NOTE | 2022-12-06 20:51 | US ---
EXAMINATION TYPE: US pelvis complete transvag DATE OF EXAM: 12/06/2022 COMPARISON: NONE CLINICAL INDICATION: Female, 72 years old with history of N30.10 chronic intersitial cystitis; Pelvic pain TECHNIQUE: Transvaginal (TV) and Transabdominal (TA) . Transabdominal sonographic images of the pel vis were acquired. Transvaginal sonographic images were medically necessary to better assess the fol lowing anatomy: per order Date of LMP: unknown EXAM MEASUREMENTS: Uterus: 6.5 x 3.4 x 3.4 cm Endometrial Stripe: 0.3 cm Right Ovary: 1.3 x 1.2 x 1.2 cm Left Ovary: 1.6 x 1.2 x 1.2 cm 1. Uterus: Anteverted. Myometrium is heterogeneous. Myometrial calcifications. There is a nabothia n cyst cyst = 0.7cm 2. Endometrium: wnl 3. Right Ovary: wnl 4. Left Ovary: wnl 5. Bilateral Adnexa: wnl 6. Posterior cul-de-sac: wnl IMPRESSION: 1. Thickened endometrial stripe at 3 mm. 2. Small postmenopausal ovaries. 3. No pelvic free fluid.
== END | disposition home or self-care (01) ==
LOC: RADUSWWP 13:01
PROVIDERS: ATTEND Internal Medicine
DX: N30.10 Interstitial cystitis (chronic) without hematuria (principal); Z78.0 Asymptomatic menopausal state
CPT/HCPCS: 76830; 76856

== ENCOUNTER → 2022-12-06 | Outpatient (CLI) | payer MEDICARE ==
--- NOTE | 2022-12-07 11:26 | MM ---
Reason for Exam: Screening (asymptomatic). Last mammogram was performed 1 year(s) and 1 month(s) ago. Patient History: Menarche at age 14. First Full-Term at age 27. Postmenopausal. Benign Cyst Aspiration on the left side. 01/28/2009, Benign Excisional Biopsy on the right side. 01/14/2009, High risk Core Biopsy on the right side. Risk Values: Rachel 5 year model risk: 2.9%. NCI Lifetime model risk: 7.9%. Prior Study Comparison: 10/01/2019 Bilateral Screening Mammogram, [facility]. 10/20/2020 Bilateral Screening Mammogram, [facility]. 11/16/2021 Bilateral MG 3D screening mammo w/cad, [facility]. Tissue Density: The breast tissue is heterogeneously dense. This may lower the sensitivity of mammography. Findings: Analyzed By CAD. There is no suspicious group of microcalcifications or new suspicious mass in either breast. Overall Assessment: Benign, BI-RAD 2 Management: Screening Mammogram of both breasts in 1 year. . Patient should continue monthly self-breast exams. A clinical breast exam by your physician is recommended on an annual basis. This exam should not preclude additional follow-up of suspicious palpable abnormalities. Note on Rachel scores and lifetime risk: 1. A Rachel score greater than 3% is considered moderate risk. If this is the case, consider specialist referral to assess eligibility for a risk reducing agent. 2. If overall lifetime risk for the development of breast cancer is 20% or higher, the patient may qualify for future screening with alternating mammogram and breast MRI. Electronically signed and approved by: Luis Jimenez M.D. Radiologis
== END | disposition home or self-care (01) ==
LOC: RADMAMWWP 12:59
PROVIDERS: ATTEND Internal Medicine
DX: Z12.31 Encounter for screening mammogram for malignant neoplasm of breast (principal); Z78.0 Asymptomatic menopausal state
CPT/HCPCS: 77063; 77067

== ENCOUNTER 2023-02-04 07:55 | Inpatient (IN) | payer MEDICARE ==
[2023-02-04] MEDS ORDERED: SODIUM CHLORIDE 0.9% 500 ML 500 ML IV STA (08:04)
--- NOTE | 2023-02-04 08:13 | ED ---
General Adult HPI - General Stated complaint: Fall Time Seen by Provider: 02/04/23 07:55 Source: patient, RN notes reviewed, old records reviewed - History of Present Illness Initial comments: This is a 72-year-old female with past medical history significant for hypertension. Patient states yesterday she had the chills and had a little upset stomach. Patient states this morning she got up suddenly nauseous and she passed out and according to EMS she passed on 3 separate occasions none of these occasions where she out for very long just a few seconds according to the and EMS. Patient's blood pressure was initially normal however in route the blood pressure started becoming lower and at one point was in the 80s systolic. Patient denies any chest pain or palpitations. Patient denies a sore breath or difficulty breathing. Patient denies headache patient denies numbness weakness per patient denies abdominal pain patient denies any nausea vomiting diarrhea currently. according to the patient she states she did hear her head hit the ground. - Related Data Home Medications Medication Instructions Recorded Confirmed Candesartan [Atacand] 16 mg PO DAILY 01/12/19 02/04/23 Calcium Carbonate [Calcium] 600 mg PO DAILY 02/04/23 02/04/23 Cholecalciferol [Vitamin D3 (25 25 mcg PO DAILY 02/04/23 02/04/23 Mcg = 1000 Iu)] Pentosan Polysulfate Sodium 100 mg PO TID 02/04/23 02/04/23 [Elmiron] amLODIPine [Norvasc] 5 mg PO HS 02/04/23 02/04/23 hydroCHLOROthiazide [Hydrodiuril] 12.5 mg PO DAILY 02/04/23 02/04/23 Previous Rx's Medication Instructions Recorded Aspirin [Adult Low Dose Aspirin EC] 81 mg PO DAILY #30 tablet. 07/29/16 Allergies Allergy/AdvReac Type Severity Reaction Status Date / Time codeine AdvReac vomited/passed Verified 02/04/23 09:22 out Review of Systems ROS Statement: Those systems with pertinent positive or pertinent negative responses have been documented in the HPI. ROS Other: All systems not noted in ROS Statement are negative. Past Medical History Past Medical History: CVA/TIA, Eye Disorder, GERD/Reflux, Hyperlipidemia, Hypertension, Osteoarthritis (OA) Additional Past Medical History / Comment(s): GLAUCOMA LIZ EYES, 2017-TIA-no residual effects, on rx for bladder problems, History of Any Multi-Drug Resistant Organisms: None Reported Past Surgical History: Breast Surgery, Cholecystectomy, Heart Catheterization, Tubal Ligation Additional Past Surgical History / Comment(s): rt breast biopsy. EGD. left cataract Past Anesthesia/Blood Transfusion Reactions: No Reported Reaction Past Psychological History: No Psychological Hx Reported Smoking Status: Never smoker Past Alcohol Use History: None Reported Past Drug Use History: None Reported - Past Family History Father Family Medical History: Cancer Additional Family Medical History / Comment(s): stomach cancer General Exam - General Exam Comments Initial Comments: GENERAL: Patient is well-developed and well-nourished. Patient is nontoxic and well- hydrated and is in mild distress. ENT: Neck is soft and supple. No significant lymphadenopathy is noted. Oropharynx is clear. Moist mucous membranes. Neck has full range of motion without eliciting any pain. EYES: The sclera were anicteric and conjunctiva were pink and moist. Extraocular movements were intact and pupils were equal round and reactive to light. Eyelids were unremarkable. PULMONARY: Unlabored respirations. Good breath sounds bilaterally. No audible rales rhonchi or wheezing was noted. CARDIOVASCULAR: There is a regular rate and rhythm without any murmurs gallops or rubs. ABDOMEN: Soft and nontender with normal bowel sounds. SKIN: Skin is clear with no lesions or rashes and otherwise unremarkable. NEUROLOGIC: Patient is alert and oriented x3. Cranial nerves II through XII are grossly intact. Motor and sensory are also intact. Normal speech, volume and content. Symmetrical smile. MUSCULOSKELETAL: Normal extremities with adequate strength and full range of motion. LYMPHATICS: No significant lymphadenopathy is noted PSYCHIATRIC: Normal psychiatric evaluation. Course Vital Signs 02/04/23 02/04/23 02/04/23 08:01 09:27 09:29 Temperature 98.5 F Pulse Rate 86 Pulse Rate [ 75 Sitting Transportation Mechanic] Pulse Rate [ Standing Transportation Mechanic ] Pulse Rate [ 75 Supine Transportation Mechanic] Respiratory 16 16 16 Rate Blood Pressure 116/79 Blood Pressure 117/68 [Right Arm Sitting] Blood Pressure [Right Arm Standing] Blood Pressure 94/57 [Right Arm Supine] O2 Sat by Pulse 97 97 97 Oximetry 02/04/23 09:31 Temperature Pulse Rate Pulse Rate [ Sitting Transportation Mechanic] Pulse Rate [ 86 Standing Transportation Mechanic ] Pulse Rate [ Supine Transportation Mechanic] Respiratory 16 Rate Blood Pressure Blood Pressure [Right Arm Sitting] Blood Pressure 106/62 [Right Arm Standing] Blood Pressure [Right Arm Supine] O2 Sat by Pulse 98 Oximetry Medical Decision Making - Medical Decision Making EKG as interpreted by myself. EKG shows a sinus rhythm at 86 bpm [place] interval 230 for cardiac is 90 QT interval 363 QTC is 47. Patient's EKG shows no ST segment elevation or depression Was pt. sent in by a medical professional or institution (, PA, STORE ASSOCIATE, urgent care, hospital, or alf...) When possible be specific @ -No Did you speak to anyone other than the patient for history (EMS, parent, family, police, friend...)? What history was obtained from this source @ -EMS gave quite a bit of the history as did the and son Did you review nursing and triage notes (agree or disagree)? Why? @ -I reviewed and agree with nursing and triage notes Were old charts reviewed (outside hosp., previous admission, EMS record, old EKG, old radiological studies, urgent care reports/EKG's, alf records)? Report findings @ -I reviewed the prior note some part (patient Differential Diagnosis (chest pain, altered mental status, abdominal pain women, abdominal pain men, vaginal bleeding, weakness, fever, dyspnea, syncope, headache, dizziness, GI bleed, back pain, seizure, CVA, palpatations, mental health, musculoskeletal)? @ -Differential Syncope: Valvular disease, hypertrophic cardiomyopathy, pulmonary embolism, tamponade, tachycardia, bradycardia, CO, hypovolemia, hemorrhage, dissection, anemia, intracranial hemorrhage, seizure, hypoglycemia, carbon monoxide poisoning, this is not meant to be an all-inclusive list. EKG interpreted by me (3pts min.). @ -As above X-rays interpreted by me (1pt min.). @ -Chest x-ray shows No acute abnormality CT interpreted by me (1pt min.). @ -CT of the brain shows no acute abnormality CT of the C-spine shows no acute abnormality U/S interpreted by me (1pt. min.). @ -None done What testing was considered but not performed or refused? (CT, X-rays, U/S, labs)? Why? @ -None What meds were considered but not given or refused? Why? @ -None Did you discuss the management of the patient with other professionals (professionals i.e. , PA, STORE ASSOCIATE, lab, RT, psych nurse, family welfare social work professor, payroll benefits administrator, teacher, special forces officer, manager case)? Give summary @ -I spoke with Dr. Dhaliwal she agreed to admit the patient Was smoking cessation discussed for >3mins.? @ -No Was critical care preformed (if so, how long)? @ -No Were there social determinants of health that impacted care today? How? (Homelessness, low income, unemployed, alcoholism, drug addiction, transportation, low edu. Level, literacy, decrease access to med. care, senior living, rehab)? @ -No Was there de-escalation of care discussed even if they declined (Discuss DNR or withdrawal of care, Hospice)? DNR status @ -No What co-morbidities impacted this encounter? (DM, HTN, Smoking, COPD, CAD, Cancer, CVA, ARF, Chemo, Hep., AIDS, mental health diagnosis, sleep apnea, morbid obesity)? @ -None Was patient admitted / discharged? Hospital course, mention meds given and route, prescriptions, significant lab abnormalities, going to OR and other pertinent info. @ -Patient was given IV fluid bolus and given Rocephin for the urinary tract infection. Since patient passed out multiple times admitted the patient to Dr. Bhat wrote admitting orders Undiagnosed new problem with uncertain prognosis? @ -No Drug Therapy requiring intensive monitoring for toxicity (Heparin, Nitro, Insulin, Cardizem)? @ -No Were any procedures done? @ -No Diagnosis/symptom? @ -Urinary Tract infection Acute, or Chronic, or Acute on Chronic? @ -Acute Uncomplicated (without systemic symptoms) or Complicated (systemic symptoms)? @ -Complicated Side effects of treatment? @ -No Exacerbation, Progression, or Severe Exacerbation? @ -No Poses a threat to life or bodily function? How? (Chest pain, [place], CO, pneumonia, PE, COPD, DKA, ARF, appy, cholecystitis, CVA, Diverticulitis, Homicidal, Suicidal, threat to staff... and all critical care pts) @ -Yes this can lead to sepsis and end organ dysfunction Diagnosis/symptom? @ -Syncope Acute, or Chronic, or Acute on Chronic? @ -Acute Uncomplicated (without systemic symptoms) or Complicated (systemic symptoms)? @ -Complicated Side effects of treatment? @ -none Exacerbation, Progression, or Severe Exacerbation] @ -no Poses a threat to life or bodily function? @ -no - Lab Data Result diagrams: 02/04/23 08:06 02/04/23 08:06 Lab Results 02/04/23 02/04/23 02/04/23 Range/Units 08:06 08:06 08:06 WBC 12.4 H (3.8-10.6) k/uL RBC 4.49 (3.80-5.40) m/uL Hgb 13.5 (11.4-16.0) gm/dL Hct 40.0 (34.0-46.0) % MCV 89.0 (80.0-100.0) fL MCH 30.1 (25.0-35.0) pg MCHC 33.8 (31.0-37.0) g/dL RDW 12.9 (11.5-15.5) % Plt Count 328 (150-450) k/uL MPV 7.5 Neutrophils % 82 % Lymphocytes % 10 % Monocytes % 5 % Eosinophils % 1 % Basophils % 1 % Neutrophils # 10.2 H (1.3-7.7) k/uL Lymphocytes # 1.3 (1.0-4.8) k/uL Monocytes # 0.6 (0-1.0) k/uL Eosinophils # 0.1 (0-0.7) k/uL Basophils # 0.1 (0-0.2) k/uL PT 11.0 (10.0-12.5) sec INR 1.0 (<1.2) APTT 23.3 (22.0-30.0) sec Sodium (137-145) mmol/L Potassium (3.5-5.1) mmol/L Chloride (98-107) mmol/L Carbon Dioxide (22-30) mmol/L Anion Gap mmol/L BUN (7-17) mg/dL Creatinine (0.52-1.04) mg/dL Est GFR (CKD-EPI)AfAm (>60 ml/min/1.73 sqM) Est GFR (CKD-EPI)NonAf (>60 ml/min/1.73 sqM) Glucose (74-99) mg/dL Plasma Lactic Acid John (0.7-2.0) mmol/L Calcium (8.4-10.2) mg/dL Magnesium (1.6-2.3) mg/dL Total Bilirubin (0.2-1.3) mg/dL AST (14-36) U/L ALT (4-34) U/L Alkaline Phosphatase (38-126) U/L Troponin I (0.000-0.034) ng/mL Total Protein (6.3-8.2) g/dL Albumin (3.5-5.0) g/dL Urine Color Yellow Urine Appearance Cloudy H (Clear) Urine pH 6.0 (5.0-8.0) Ur Specific [place] 1.015 (1.001-1.035) Urine Protein Trace H (Negative) Urine Glucose (UA) Negative (Negative) Urine Ketones Negative (Negative) Urine Blood Moderate H (Negative) Urine Nitrite Positive H (Negative) Urine Bilirubin Negative (Negative) Urine Urobilinogen 0.2 (<2.0) mg/dL Ur Leukocyte Esterase Large (Negative) Urine RBC 10 H (0-5) /hpf Urine WBC >182 H (0-5) /hpf Urine WBC Clumps Many H (None) /hpf Ur Squamous Epith Cells <1 (0-4) /hpf Urine Bacteria Moderate H (None) /hpf Hyaline Casts 8 H (0-2) /lpf Urine Mucus Rare H (None) /hpf 02/04/23 02/04/23 02/04/23 Range/Units 08:06 08:06 08:06 WBC (3.8-10.6) k/uL RBC (3.80-5.40) m/uL Hgb (11.4-16.0) gm/dL Hct (34.0-46.0) % MCV (80.0-100.0) fL MCH (25.0-35.0) pg MCHC (31.0-37.0) g/dL RDW (11.5-15.5) % Plt Count (150-450) k/uL MPV Neutrophils % % Lymphocytes % % Monocytes % % Eosinophils % % Basophils % % Neutrophils # (1.3-7.7) k/uL Lymphocytes # (1.0-4.8) k/uL Monocytes # (0-1.0) k/uL Eosinophils # (0-0.7) k/uL Basophils # (0-0.2) k/uL PT (10.0-12.5) sec INR (<1.2) APTT (22.0-30.0) sec Sodium 133 L (137-145) mmol/L Potassium 4.1 (3.5-5.1) mmol/L Chloride 99 (98-107) mmol/L Carbon Dioxide 22 (22-30) mmol/L Anion Gap 12 mmol/L BUN 17 (7-17) mg/dL Creatinine 1.10 H (0.52-1.04) mg/dL Est GFR (CKD-EPI)AfAm 58 (>60 ml/min/1.73 sqM) Est GFR (CKD-EPI)NonAf 51 (>60 ml/min/1.73 sqM) Glucose 136 H (74-99) mg/dL Plasma Lactic Acid John 1.4 (0.7-2.0) mmol/L Calcium 9.5 (8.4-10.2) mg/dL Magnesium 2.0 (1.6-2.3) mg/dL Total Bilirubin 0.7 (0.2-1.3) mg/dL AST 33 (14-36) U/L ALT 31 (4-34) U/L Alkaline Phosphatase 74 (38-126) U/L Troponin I <0.012 (0.000-0.034) ng/mL Total Protein 6.6 (6.3-8.2) g/dL Albumin 4.0 (3.5-5.0) g/dL Urine Color Urine Appearance (Clear) Urine pH (5.0-8.0) Ur Specific [place] (1.001-1.035) Urine Protein (Negative) Urine Glucose (UA) (Negative) Urine Ketones (Negative) Urine Blood (Negative) Urine Nitrite (Negative) Urine Bilirubin (Negative) Urine Urobilinogen (<2.0) mg/dL Ur Leukocyte Esterase (Negative) Urine RBC (0-5) /hpf Urine WBC (0-5) /hpf Urine WBC Clumps (None) /hpf Ur Squamous Epith Cells (0-4) /hpf Urine Bacteria (None) /hpf Hyaline Casts (0-2) /lpf Urine Mucus (None) /hpf Disposition Clinical Impression: Syncope and collapse, Urinary tract infection Disposition: ADMITTED IP TO THIS [facility] Referrals: Mark Wilkinson MD [Primary Care Provider] - 1-2 days Time of Disposition: 11:19
[2023-02-04 08:20] LABS: Basophils # (A) 0.1 k/uL (0-0.2); Basophils % (A) 1 %; Eosinophils # (A) 0.1 k/uL (0-0.7); Eosinophils % (A) 1 %; HGB 13.5 gm/dL (11.4-16.0); Lymphocytes # (A) 1.3 k/uL (1.0-4.8); Lymphocytes % (A) 10 %; MCH 30.1 pg (25.0-35.0); MCHC 33.8 g/dL (31.0-37.0); Mean Platelet Volume 7.5; Monocytes # (A) 0.6 k/uL (0-1.0); Monocytes % (A) 5 %; Neutrophils # (A) 10.2 k/uL (1.3-7.7); Neutrophils % (A) 82 %; Platelet Count 328 k/uL (150-450); RBC 4.49 m/uL (3.80-5.40); RDW 12.9 % (11.5-15.5); WBC 12.4 k/uL (3.8-10.6)
[2023-02-04 08:28] LABS: Partial Thromboplastin Time 23.3 sec (22.0-30.0)
--- NOTE | 2023-02-04 08:40 | XR ---
EXAMINATION TYPE: XR chest 2V DATE OF EXAM: 02/04/2023 COMPARISON: 04/20/2021 INDICATION: Weakness TECHNIQUE: Frontal and lateral views of the chest are obtained. FINDINGS: The heart size is normal. The pulmonary vasculature is normal. The lungs are clear. IMPRESSION: 1. No acute pulmonary process.
--- NOTE | 2023-02-04 08:42 | CT ---
EXAMINATION TYPE: CT brain javierine wo con DATE OF EXAM: 02/04/2023 COMPARISON: 07/30/2016 HISTORY: Fall from standing CT DLP: 1286.2 mGycm, Automated exposure control for dose reduction was used. CONTRAST: None CT of the brain is performed utilizing 3 mm thick sections through the posterior fossa and 3 mm thick sections through the remaining calvarium. Study is performed within 24 hours of arrival to the hospital. No abnormal hyperdensity is present to suggest an acute intracranial hemorrhage. No mass lesion is evident. No acute infarcts are evident. Ventricles and sulci are appropriate for the patient age. Paranasal sinuses and mastoid air cells within the [id number] are clear. IMPRESSIONS: 1. No acute intracranial process. Follow-up MRI can be performed as clinically indicated CT cervical spine. COMPARISON: None CT of the cervical spine is performed in the axial plane at 2 mm thick sections. Reconstructed image s in the coronal, and sagittal plane are reviewed on the computer. No acute fractures are evident. Vertebral body alignment is normal. Disc heights are preserved. Vertebral body heights are preserved. No spinal canal stenosis is evident. No neural foraminal stenosis is evident. IMPRESSION: 1. No acute osseous abnormality cervical spine.
[2023-02-04 09:11] LABS: ALT 31 U/L (4-34); AST 33 U/L (14-36); African American GFR (CKD) 58 (>60 ml/min/1.73 sqM); Alkaline Phosphatase 74 U/L (38-126); Anion Gap 12 mmol/L; Blood Urea Nitrogen 17 mg/dL (7-17); Calcium 9.5 mg/dL (8.4-10.2); Carbon Dioxide 22 mmol/L (22-30); Chloride 99 mmol/L (98-107); Glucose 136 mg/dL (74-99); Non-African American GFR(CKD) 51 (>60 ml/min/1.73 sqM); Potassium 4.1 mmol/L (3.5-5.1); Sodium 133 mmol/L (137-145); Total Bilirubin 0.7 mg/dL (0.2-1.3); Total Protein 6.6 g/dL (6.3-8.2)
[2023-02-04 10:28] LABS: Appearance,Urine Cloudy (Clear); Bacteria,Urine Moderate /hpf; Color,Urine Yellow; Hyaline Casts,Urine 8 /lpf (0-2); Mucus,Urine Rare /hpf; RBC,Urine 10 /hpf (0-5); Squamous Epithelial Cell,Urine <1 /hpf (0-4); WBC,Urine >182 /hpf (0-5)
[2023-02-04 10:29] LABS: Bilirubin,Urine Negative (Negative); Blood,Urine Moderate (Negative); Glucose,Urine (UA) Negative (Negative); Ketones,Urine Negative (Negative); Protein,Urine Trace (Negative); Specific Gravity,Urine 1.015 (1.001-1.035); Urobilinogen,Urine 0.2 mg/dL (<2.0)
[2023-02-04 10:30] LABS: Nitrite,Urine Positive (Negative)
[2023-02-04 10:31] LABS: Leukocyte Esterase,Urine Large (Negative)
[2023-02-04] MEDS ORDERED: cefTRIAXone IN SWFI 1,000 MG/10 ML SYRINGE IVP STA (10:39)
[2023-02-04] MEDS ORDERED: SODIUM CHLORIDE 0.9% 1,000 ML IV ONE (11:20)
--- NOTE | 2023-02-04 11:41 | P.HPIM ---
History of Present Illness H&P Date: 02/04/23 Patient is a 72-year-old female with hypertension, dyslipidemia, and GERD who presented to the hospital after multiple syncopal episodes. On arrival to the ER her initial vital signs were within normal limits. Per report from ED her BP was low during transport down to the mid 80s and fluids were started. Initial orthostatics here were negative (obtained after fluids administered). Laboratory analysis including CBC, coags, CMP which were remarkable for white blood cell count 12.4 and sodium of 133. Urinalysis was consistent with probable urinary tract infection. CT head and cervical spine was negative for any acute process. She was given 1 L of fluid and started on Rocephin. Arrangements were made for observation. Patient seen with family at bedside. She reports that today she got up and walked from the bedroom to the kitchen when she suddenly felt very dizzy. This was associated with her head's feeling in a very bad headache. She denies any chest pain palpitations or shortness of breath. She then put her head down and then turned to try to go lay down in the living room and passed out. The then reports that every time he tried to sit her up she would pass out again. This happened multiple times. When EMS arrived her blood pressure initially was normal however it quickly became low in the ambulance requiring fluid resuscitation. reports that she has a history of syncope in the past before that Dr. Nolasco said it was related to elevated blood pressures. Patient reports that she was not feeling well yesterday. She felt feverish and laid out almost all day. She Had Some Loss of appetite. She has chronic diarrhea which has remained unchanged. She also reports for the last week some urinary frequency and urgency but no pain with urination. She also is complaining of 5 weeks of left sided hip pain with no known preceding event. She then complains of multiple months of left upper quadrant pain. Vital signs reviewed General: nontoxic, no distress, appears at stated age Derm: warm, dry ENT: Nose and ears atraumatic, no thrush, no pharyngeal erythema Cardiovascular: S1S2 reg, no murmur, positive posterior tibial pulse bilateral, no edema Lungs: clear to auscultation bilateral, no rhonchi, no rales, no wheeze, no accessory muscle use Abdominal: soft, nontender to palpation, no guarding, no appreciable organomegaly, normal bowel sounds Ext: no gross muscle atrophy, no contractures Neuro: CN II-XII grossly intact, no focal neuro deficits Psych: Alert, oriented, appropriate affect Assessment/Plan: Multiple syncopal events Hypotension enroute to the emergency department -Orthostatic vitals requested and reviewed which are negative -Telemetry, echocardiogram, consult cardiology - check COVID/FLU/RSV - hold norvasc, HCTZ, and candesartan Urinary tract infection, present on admission Acute kidney injury Hyponatremia, due to dehydration - check culture - rocephin 1 gram IV q 4 hours - 0.9 NS at 100 cc/hr Left upper quadrant pain - trial of PPI Left hip pain - check x-ray - consult ortho Chronic: Hypertension Dyslipidemia GERD Prior TIA Prior syncopal episodes Imaging: As per HPI Data Review: As per HPI The patient is placed in observation with an anticipated less than 2 midnight stay for evaluation of syncope. Surrogate decision-maker: DVT prophylaxis: SCDs Anticipated discharge date: in 24-[address]: home This dictation was prepared using [employer] voice recognition software. Though every attempt is made to correct errors during dictation some may still exist. 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 EGD. left cataract Past Anesthesia/Blood Transfusion Reactions: No Reported Reaction Past Psychological History: No Psychological Hx Reported Smoking Status: Never smoker Past Alcohol Use History: None Reported Past Drug Use History: None Reported - Past Family History Father Family Medical History: Cancer Additional Family Medical History / Comment(s): stomach cancer Medications and Allergies Home Medications Medication Instructions Recorded Confirmed Type Aspirin [Adult Low Dose Aspirin EC] 81 mg PO DAILY #30 tablet. 07/29/16 02/04/23 Rx Candesartan [Atacand] 16 mg PO DAILY 01/12/19 02/04/23 History Calcium Carbonate [Calcium] 600 mg PO DAILY 02/04/23 02/04/23 History Cholecalciferol [Vitamin D3 (25 25 mcg PO DAILY 02/04/23 02/04/23 History Mcg = 1000 Iu)] Pentosan Polysulfate Sodium 100 mg PO TID 02/04/23 02/04/23 History [Elmiron] amLODIPine [Norvasc] 5 mg PO HS 02/04/23 02/04/23 History hydroCHLOROthiazide [Hydrodiuril] 12.5 mg PO DAILY 02/04/23 02/04/23 History Allergies Allergy/AdvReac Type Severity Reaction Status Date / Time codeine AdvReac vomited/passed Verified 02/04/23 09:22 out Physical Exam Osteopathic Statement: *. No significant issues noted on an osteopathic structural exam other than those noted in the History and Physical/Consult. Vitals: Vital Signs Temp Pulse Pulse Pulse Pulse Resp BP 02/04/23 09:31 86 16 02/04/23 09:29 75 16 02/04/23 09:27 75 16 02/04/23 08:01 98.5 F 86 16 116/79 BP BP BP Pulse Ox 02/04/23 09:31 106/62 98 02/04/23 09:29 117/68 97 02/04/23 09:27 94/57 97 02/04/23 08:01 97 Intake and Output 02/03/23 02/04/23 02/04/23 22:59 06:59 14:59 Other: Weight 61.235 kg Results CBC & Chem 7: 02/04/23 08:06 02/04/23 08:06 Labs: Abnormal Lab Results - Last 24 Hours (Table) 02/04/23 02/04/23 02/04/23 Range/Units 08:06 08:06 08:06 WBC 12.4 H (3.8-10.6) k/uL Neutrophils # 10.2 H (1.3-7.7) k/uL Sodium 133 L (137-145) mmol/L Creatinine 1.10 H (0.52-1.04) mg/dL Glucose 136 H (74-99) mg/dL Urine Appearance Cloudy H (Clear) Urine Protein Trace H (Negative) Urine Blood Moderate H (Negative) Urine Nitrite Positive H (Negative) Urine RBC 10 H (0-5) /hpf Urine WBC >182 H (0-5) /hpf Urine WBC Clumps Many H (None) /hpf Urine Bacteria Moderate H (None) /hpf Hyaline Casts 8 H (0-2) /lpf Urine Mucus Rare H (None) /hpf
--- NOTE | 2023-02-04 12:32 | XR ---
EXAMINATION TYPE: XR Hip Complete LT DATE OF EXAM: 02/04/2023 COMPARISON: None HISTORY: Pain, fall TECHNIQUE: 2 view left hip FINDINGS: Femoral head articulates with the acetabulum. Joint space is preserved. No acute fracture o r dislocation is evident. Follow up exams can be performed 7-10 days from acute trauma for continued pain. IMPRESSION: 1. No acute osseous abnormality left hip
[2023-02-04] MEDS ORDERED: MELATONIN 3 MG TABLET PO PRN (12:53)
[2023-02-04] MEDS ORDERED: ONDANSETRON 4 MG/2 ML VIAL IVP PRN (12:53)
[2023-02-04] MEDS ORDERED: NALOXONE 0.4 MG/ML 1 ML VIAL IVP PRN (12:53)
[2023-02-04] MEDS: PANTOPRAZOLE 40 MG TABLET PO SCH (13:24)
[2023-02-04] MEDS: ACETAMINOPHEN TAB 325 MG TAB PO PRN ×2 (13:24→20:27)
[2023-02-04] MEDS: SODIUM CHLORIDE 0.9% 1,000 ML IV SCH (13:29)
[2023-02-04] MEDS ORDERED: NON FORMULARY DRUG (Pentosan Polysulfate Sodium [Elmiron] 100 MG Capsule) PO SCH (16:00)
[2023-02-04] MEDS: PENTOSAN POLYSULFATE SODIUM 100 MG PO SCH ×2 (17:23→23:20)
[2023-02-05] MEDS: ACETAMINOPHEN TAB 325 MG TAB PO PRN ×2 (02:15→15:50)
[2023-02-05] MEDS: SODIUM CHLORIDE 0.9% 1,000 ML IV SCH ×3 (02:16→20:25)
[2023-02-05] MEDS ORDERED: CYCLOBENZAPRINE 5 MG TAB PO STA (08:45)
[2023-02-05] MEDS: PENTOSAN POLYSULFATE SODIUM 100 MG PO SCH ×3 (08:46→20:25)
[2023-02-05] MEDS: PANTOPRAZOLE 40 MG TABLET PO SCH (08:47)
[2023-02-05] MEDS: ASPIRIN 81 MG PO SCH (08:47)
[2023-02-05] MEDS: CHOLECALCIFEROL 25 MCG (1000 IU) TABLET PO SCH (08:47)
--- NOTE | 2023-02-05 09:02 | P.CNOR ---
History of Present Illness - [facility] Consult date: 02/05/23 Requesting physician: Nata Dhaliwal Consult reason: other (left hip pain x 5 weeks) History of present illness: Patient is a 72-year-old female with a past medical history significant for hypertension, hyperlipidemia, GERD who presented to the hospital after having several syncopal episodes. Orthopedics was consulted for left hip pain over the past 5 weeks. Patient was seen at bedside this morning lying in semirecumbent position on the 6N medical floor. Patient's says she began having some left- sided low back pain and and left hip pain that radiated down to the left knee sometimes over the past 5 weeks. Patient says the most recent episode layered up this past Saturday after she walked around the mall without 2 miles she said. Patient describes the pain as spasm leg and sharp at times. Patient states the pain is exacerbated when she changes positions from lying down flat to sitting and sitting to standing. Patient says the pain radiates from the low back to the left knee sometimes. Patient states most of the pain is in the left-sided low back. Patient says she does see a chiropractor for her low back and that does help sometimes. Patient also says she has taken Tylenol and Aleve at home with some relief. Patient says she ambulance at home independently. Patient denies having any previous orthopedic surgeries. Patient says she has had a couple work injuries in the past which she thinks may have contributed to her low back pain. Patient denies chest pain, fever, shortness of breath, nausea, vomiting, change in vision, loss of bowel/bladder control. 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 EGD. left cataract Past Anesthesia/Blood Transfusion Reactions: No Reported Reaction Past Psychological History: No Psychological Hx Reported Smoking Status: Never smoker Past Alcohol Use History: None Reported Past Drug Use History: None Reported - Past Family History Father Family Medical History: Cancer Additional Family Medical History / Comment(s): stomach cancer Medications and Allergies Home Medications Medication Instructions Recorded Confirmed Type Aspirin [Adult Low Dose Aspirin EC] 81 mg PO DAILY #30 tablet. 07/29/16 02/04/23 Rx Candesartan [Atacand] 16 mg PO DAILY 01/12/19 02/04/23 History Calcium Carbonate [Calcium] 600 mg PO DAILY 02/04/23 02/04/23 History Cholecalciferol [Vitamin D3 (25 25 mcg PO DAILY 02/04/23 02/04/23 History Mcg = 1000 Iu)] Pentosan Polysulfate Sodium 100 mg PO TID 02/04/23 02/04/23 History [Elmiron] amLODIPine [Norvasc] 5 mg PO HS 02/04/23 02/04/23 History hydroCHLOROthiazide [Hydrodiuril] 12.5 mg PO DAILY 02/04/23 02/04/23 History Allergies Allergy/AdvReac Type Severity Reaction Status Date / Time codeine AdvReac vomited/passed Verified 02/04/23 09:22 out Physical Examination Inspection: Negative for any significant ecchymosis/erythema/open wound/open fractures. Sensation: Equal, symmetric, bilaterally intact throughout the upper and lower extremities. Palpation: Moderate TTP over left SI joint. fair amount of TTP over right SI joint and left lower extremity over upper leg Range of motion: Patient has full range of motion throughout bilateral upper extremities on exam. Patient has full range of motion throughout bilateral lower extremities on exam. Motor: 4+/5 in all major motor groups in bilateral upper and lower extremities Neurovascular status: Radial pulses intact, 2+ bilaterally. Cap refill under 3 seconds in digits of the upper extremities. Special tests: Negative Homans bilaterally. Negative clonus bilaterally. Positive straight-leg raise on the left lower extremity Results - Labs Labs: Abnormal Lab Results - Last 24 Hours (Table) 02/04/23 02/04/23 Range/Units 08:06 08:06 Sodium 133 L (137-145) mmol/L Creatinine 1.10 H (0.52-1.04) mg/dL Glucose 136 H (74-99) mg/dL Urine Appearance Cloudy H (Clear) Urine Protein Trace H (Negative) Urine Blood Moderate H (Negative) Urine Nitrite Positive H (Negative) Urine RBC 10 H (0-5) /hpf Urine WBC >182 H (0-5) /hpf Urine WBC Clumps Many H (None) /hpf Urine Bacteria Moderate H (None) /hpf Hyaline Casts 8 H (0-2) /lpf Urine Mucus Rare H (None) /hpf H & H 02/04/23 Range/Units 08:06 Hgb 13.5 (11.4-16.0) gm/dL Hct 40.0 (34.0-46.0) % Coagulation 02/04/23 Range/Units 08:06 INR 1.0 (<1.2) Result Diagrams: 02/04/23 08:06 02/04/23 08:06 - Diagnostic results Hip x-ray: report reviewed, image reviewed (X-ray left hip negative for any fracture. Negative for any significant osteoarthritis. Joint space does appear to be intact without any evidence of significant narrowing) Assessment and Plan Assessment: 1. Low back pain Plan: 1. Low back pain - X-ray left hip negative for any fracture. Negative for any significant osteoarthritis. Joint space does appear to be intact without any evidence of significant narrowing. Patient was examined bedside this morning. Based on findings from exam, patient likely has an exacerbation of previous low back injury. X-ray of the low back been ordered for further evaluation. PT has been consulted. One-time dose of Flexeril has been ordered to help with symp toms. Ice packs and heat packs ordered for symptom control. We'll await results from x-ray of the lumbar spine before proceeding with any potential orthopedic intervention. Pain medication as needed. We'll continue to follow patient during standard hospital. 2. Appreciate medical management 3. Pain management - tylenol; flexeril 4. DVT prophylaxis - aspirin 5. GI prophylaxis - protonix 6. PT/OT - weightbearing as tolerated 7. Encourage incentive spirometer use 8. Appreciate consult Time with Patient: Less than 30
[2023-02-05 09:18] LABS: ALT 32 U/L (4-34); AST 28 U/L (14-36); African American GFR (CKD) 78 (>60 ml/min/1.73 sqM); Albumin 3.6 g/dL (3.5-5.0); Albumin/Globulin Ratio 1.4; Alkaline Phosphatase 77 U/L (38-126); Anion Gap 12 mmol/L; Blood Urea Nitrogen 12 mg/dL (7-17); Calcium 9.1 mg/dL (8.4-10.2); Carbon Dioxide 22 mmol/L (22-30); Chloride 103 mmol/L (98-107); Globulin 2.5 g/dL; Glucose 102 mg/dL (74-99); Magnesium 2.1 mg/dL (1.6-2.3); Non-African American GFR(CKD) 67 (>60 ml/min/1.73 sqM); Potassium 3.7 mmol/L (3.5-5.1); Sodium 137 mmol/L (137-145); Total Bilirubin 0.5 mg/dL (0.2-1.3); Total Protein 6.1 g/dL (6.3-8.2)
--- NOTE | 2023-02-05 10:02 | P.CRDCN ---
History of Present Illness Consult date: 02/05/23 Consult reason: sycope History of present illness: History of present illness: This is a 72-year-old female patient of Dr. Nolasco with past medical history of hypertension, hyperlipidemia,. We have been asked to evaluate the patient for syncopal episode. Patient states that she was standing at the sink and was feeling woozy and then she turned and was feeling dizzy ended up passing out. Has not had any passing out in the past. She developed fever on Saturday along with pressure in the suprapubic area and flank pain with decreased appetite. Patient came into the emergency center and is been diagnosed with UTI and sepsis. Orthostatics were checked in the emergency center which were negative. She is status post one half liters of IV fluid. Patient denies any alcohol use, no smoking is no marijuana use. Patient states that her fever broke around 2 AM. Echocardiogram has been taken. EKG sinus rhythm with no acute ST changes. Chest x-ray: No acute process CAT scan of the brain and cervical spine: No acute process. Hip x-ray no acute abnormality WBC 12.4, hemoglobin 13.5, platelet count 328. INR 1. Currently electrolytes and renal function are normal with creatinine of 0.87 down from 1.1. Blood sugar 102. Liver function tests are normal. Troponin negative 1. Urinalysis positive for nitrite and leukoesterase large, urine bacteria moderate. Influenza A, influenza B, RSV, Covid 19 not detected. Home cardiac medications: Amlodipine 5 g at bedtime, aspirin 81 mg daily, candesartan 16 mg daily, hydrochlorothiazide 12.5 mg daily Echocardiogram 04/21/2021: EF 55-60%. No aortic stenosis or regurgitation. Mild mitral regurgitation. Trace tricuspid regurgitation. Cardiac catheterization 2012 normal coronaries. Exercise stress test 10/08/2022 was nondiagnostic secondary to baseline EKG abnormalities. Poor exercise tolerance. Review Of Systems: At the time of my exam: CONSTITUTIONAL: Denies fever or chills. CARDIOVASCULAR: Denies chest pain, Denies shortness of breath, no orthopnea, PND or palpitations. RESPIRATORY: Denies cough. GASTROINTESTINAL: Denies abdominal pain, diarrhea, constipation, nausea or vomit ing. MUSCULOSKELETAL: Denies myalgias. NEUROLOGIC: Denies numbness, tingling or weakness. ENDOCRINE: Denies fatigue, weight change, polydipsia or polyurina. GENITOURINARY: Denies burning, hematuria or urgency with micturation. HEMATOLOGIC: Denies history of anemia or bleeding. Physical examination: Gen: This is a 72 year old female resting in bed and appears comfortable. VS: reviewed temperature max 100.3, heart rate max 106 currently 83, blood pressure 124/78, pulse ox 97% on room air. HEENT: Head is atraumatic, normocephalic. Pupils equal, round. Sclerae is anicteric. NECK: Supple. No JVD. LUNGS: Clear to auscultation. No wheezes or rhonchi. No intercostal retractions. HEART: Regular rate and rhythm. No murmur. ABDOMEN: Soft suprapubic tenderness. EXTREMITIES: No pedal edema. No calf tenderness. Dorsalis pedis +2 bilaterally. NEUROLOGICAL: Patient is awake, alert and oriented x3. Assessment: Urinary tract infection and sepsis Syncopal episode most likely secondary to sepsis Hypertension Hyperlipidemia Plan: Resume patient's blood pressure medications as tolerated, resume amlodipine first Obtain 2-D echocardiogram and Doppler study report Continue telemetry for now and make decision regarding need for event monitor Further recommendations to follow based upon clinical course Thank you kindly for this consultation. Nurse practitioner note has been reviewed, I agree with documented findings and plan of care. Patient was seen and examined. 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 EGD. left cataract Past Anesthesia/Blood Transfusion Reactions: No Reported Reaction Past Psychological History: No Psychological Hx Reported Smoking Status: Never smoker Past Alcohol Use History: None Reported Past Drug Use History: None Reported - Past Family History Father Family Medical History: Cancer Additional Family Medical History / Comment(s): stomach cancer Medications and Allergies Home Medications Medication Instructions Recorded Confirmed Type Aspirin [Adult Low Dose Aspirin EC] 81 mg PO DAILY #30 tablet. 07/29/16 02/04/23 Rx Candesartan [Atacand] 16 mg PO DAILY 01/12/19 02/04/23 History Calcium Carbonate [Calcium] 600 mg PO DAILY 02/04/23 02/04/23 History Cholecalciferol [Vitamin D3 (25 25 mcg PO DAILY 02/04/23 02/04/23 History Mcg = 1000 Iu)] Pentosan Polysulfate Sodium 100 mg PO TID 02/04/23 02/04/23 History [Elmiron] amLODIPine [Norvasc] 5 mg PO HS 02/04/23 02/04/23 History hydroCHLOROthiazide [Hydrodiuril] 12.5 mg PO DAILY 02/04/23 02/04/23 History Allergies Allergy/AdvReac Type Severity Reaction Status Date / Time codeine AdvReac vomited/passed Verified 02/04/23 09:22 out Physical Exam Vitals: Vital Signs Temp Pulse Pulse Pulse Pulse Resp BP 02/05/23 03:45 99.5 F 84 18 96/60 02/05/23 02:12 101.1 F H 02/04/23 23:12 100.7 F H 94 18 115/54 02/04/23 20:26 102.8 F H 106 H 18 145/87 02/04/23 19:41 103 F H 108 H 20 135/67 02/04/23 14:00 97.9 F 79 16 104/58 02/04/23 13:00 80 16 100/59 02/04/23 12:00 74 16 107/59 02/04/23 11:00 76 16 102/60 02/04/23 09:31 86 16 02/04/23 09:29 75 16 02/04/23 09:27 75 16 02/04/23 08:01 98.5 F 86 16 116/79 BP BP BP Pulse Ox 02/05/23 03:45 98 02/05/23 02:12 02/04/23 23:12 96 02/04/23 20:26 97 02/04/23 19:41 98 02/04/23 14:00 100 02/04/23 13:00 100 02/04/23 12:00 97 02/04/23 11:00 97 02/04/23 09:31 106/62 98 02/04/23 09:29 117/68 97 02/04/23 09:27 94/57 97 02/04/23 08:01 97 Results 02/04/23 08:06 02/05/23 08:37 Cardiac Enzymes 02/04/23 02/04/23 Range/Units 08:06 08:06 AST 33 (14-36) U/L Troponin I <0.012 (0.000-0.034) ng/mL Coagulation 02/04/23 Range/Units 08:06 PT 11.0 (10.0-12.5) sec APTT 23.3 (22.0-30.0) sec CBC 02/04/23 Range/Units 08:06 WBC 12.4 H (3.8-10.6) k/uL RBC 4.49 (3.80-5.40) m/uL Hgb 13.5 (11.4-16.0) gm/dL Hct 40.0 (34.0-46.0) % Plt Count 328 (150-450) k/uL Comprehensive Metabolic Panel 02/04/23 Range/Units 08:06 Sodium 133 L (137-145) mmol/L Potassium 4.1 (3.5-5.1) mmol/L Chloride 99 (98-107) mmol/L Carbon Dioxide 22 (22-30) mmol/L BUN 17 (7-17) mg/dL Creatinine 1.10 H (0.52-1.04) mg/dL Glucose 136 H (74-99) mg/dL Calcium 9.5 (8.4-10.2) mg/dL AST 33 (14-36) U/L ALT 31 (4-34) U/L Alkaline Phosphatase 74 (38-126) U/L Total Protein 6.6 (6.3-8.2) g/dL Albumin 4.0 (3.5-5.0) g/dL Current Medications Generic Name Dose Route Start Last Admin Trade Name Freq PRN Reason Stop Dose Admin Acetaminophen 650 mg 02/04/23 12:53 02/05/23 02:15 Acetaminophen Tab 325 Mg Tab PO 650 mg Q6HR PRN Administration Mild Pain or Fever > 100.5 Aspirin 81 mg 02/05/23 09:00 Aspirin 81 Mg PO DAILY [facility] Cholecalciferol 25 mcg 02/05/23 09:00 Cholecalciferol 25 Mcg (1000 Iu) Tablet PO DAILY [facility] Ceftriaxone Sodium 2 gm/ 50 mls @ 100 mls/hr 02/05/23 09:00 Sodium Chloride IVPB Q24HR JUNAID Protocol Sodium Chloride 1,000 mls @ 75 mls/hr 02/04/23 13:00 02/05/23 02:16 Saline 0.9% IV 75 mls/hr .[id number] JUNAID Administration Melatonin 3 mg 02/04/23 12:53 02/04/23 23:17 Melatonin 3 Mg Tablet PO 3 mg HS PRN Administration Insomnia Naloxone HCl 0.2 mg 02/04/23 12:53 Naloxone 0.4 Mg/Ml 1 Ml Vial IVP Q2M PRN Opioid Reversal Pentosan Polysulfate 100 mg 02/04/23 17:15 02/04/23 23:20 Sodium [Elmiron] PO Not Given 100 Mg Capsule TID [facility] Ondansetron HCl 4 mg 02/04/23 12:53 Ondansetron 4 Mg/2 Ml Vial IVP Q8HR PRN Nausea And Vomiting Pantoprazole Sodium 40 mg 02/04/23 12:30 02/04/23 13:24 Pantoprazole 40 Mg Tablet PO 40 mg [id number] JUNAID Administration 02/04/23 08:06 02/04/23 08:06
[2023-02-05 10:16] LABS: HCT 38.5 % (34.0-46.0); HGB 13.1 gm/dL (11.4-16.0); MCV 91.3 fL (80.0-100.0); Platelet Count 282 k/uL (150-450); RBC 4.21 m/uL (3.80-5.40); RDW 13.2 % (11.5-15.5); WBC 8.1 k/uL (3.8-10.6)
--- NOTE | 2023-02-05 11:22 | CA ---
Transthoracic Echo Report Name: Ashley Price Age: 72 Gender: F : 1950 Exam Date: 02/04/2023 14:50 Exam Location: [facility] Ht (in): 60 Wt (lb): 135 Ordering Physician: Nata Dhaliwal DO Attending/Referring Phys: [id number], Isra [employer] Agata Garcia [facility] Procedure CPT: Indications: Syncope Cardiac Hx: Technical Quality: Fair Contrast 1: Total Dose (mL): Contrast 2: Total Dose (mL): MEASUREMENTS (Male / Female) Normal Values 2D ECHO LV Diastolic Diameter PLAX 2.7 cm 4.2 - 5.9 / 3.9 - 5.3 cm LV Systolic Diameter PLAX 2.0 cm IVS Diastolic Thickness 1.0 cm 0.6 - 1.0 / 0.6 - 0.9 cm LVPW Diastolic Thickness 0.8 cm 0.6 - 1.0 / 0.6 - 0.9 cm LV Relative Wall Thickness 0.7 LVOT Diameter 2.0 cm Ascending Aorta Diameter 3.3 cm M-MODE Aortic Root Diameter MM 2.6 cm LA Systolic Diameter MM 2.9 cm LA Ao Ratio MM 1.1 AV Cusp Separation MM 1.8 cm DOPPLER AV Peak Velocity 142.3 cm/s AV Peak Gradient 8.1 mmHg AV Mean Velocity 108.9 cm/s AV Mean Gradient 5.1 mmHg AV Velocity Time Integral 35.2 cm LVOT Peak Velocity 140.3 cm/s LVOT Peak Gradient 7.9 mmHg LVOT Velocity Time Integral 29.0 cm LVOT Stroke Volume 89.1 cm??? LVOT Stroke Volume Index 56.4 ml/m??? LVOT Cardiac Index 3726.4 cm???/min???m??? AV Area Cont Eq vti 2.5 cm??? AV Area Cont Eq pk 3.0 cm??? Mitral E Point Velocity 77.2 cm/s Mitral A Point Velocity 82.1 cm/s Mitral E to A Ratio 0.9 MV Deceleration Time 198.6 ms LV E' Lateral Velocity 10.0 cm/s Mitral E to LV E' Lateral Ratio 7.7 LV E' Septal Velocity 8.6 cm/s Mitral E to LV E' Septal Ratio 9.0 TR Peak Velocity 195.3 cm/s TR Peak Gradient 15.3 mmHg Right Atrial Pressure 3.0 mmHg Pulmonary Artery Systolic Pressu 18.3 mmHg Right Ventricular Systolic Press 18.3 mmHg FINDINGS Left Ventricle Mildly increased septal wall thickness. Small left ventricular cavity. Normal left ventricular systolic function with no obvious regional wall motion abnormalities. Left ventricular ejection fraction is estimated at 55-60%. Right Ventricle Normal right ventricular size. Right Atrium Normal right atrial size. Left Atrium Normal left atrial size. Mitral Valve Mitral valve thickened. No mitral regurgitation. Aortic Valve Trileaflet aortic valve. No aortic valve stenosis or regurgitation. Tricuspid Valve Structurally normal tricuspid valve. Trace tricuspid regurgitation. Pulmonic Valve Pulmonic valve not well visualized. Mild pulmonic regurgitation. Pericardium Minimal pericardial effusion (normal variant). Aorta Normal size aortic root and proximal ascending aorta. CONCLUSIONS Left ventricular ejection fraction is estimated at 55-60%. No obvious regional wall motion abnormalities. Mild concentric LVH No significant valvular dysfunction Normal chamber sizes Normal RVSP Previewed by: Dr Yadiel Juarez (Electronically Signed) Final Date: 05 February 2023 11:21
--- NOTE | 2023-02-05 15:31 | P.PN ---
Subjective Progress Note Date: 02/05/23 (delayed charting seen at 0845) Patient is a 72-year-old female with hypertension, dyslipidemia, and GERD who presented to the hospital after multiple syncopal episodes. On arrival to the ER her initial vital signs were within normal limits. Per report from ED her BP was low during transport down to the mid 80s and fluids were started. Initial orthostatics here were negative (obtained after fluids administered). Laboratory analysis including CBC, coags, CMP which were remarkable for white blood cell count 12.4 and sodium of 133. Urinalysis was consistent with probable urinary tract infection. CT head and cervical spine was negative for any acute process. She was given 1 L of fluid and started on Rocephin. Arrangements were made for observation. She was also complaining of some left hip pain that has been going on for the last 5 weeks. X-ray was obtained which showed no signs of osteoarthritis. Orthopedic surgery was consulted. After antibiotic administration and overnight patient continued to spike multiple fevers the highest of 103. Patient seen and examined at bedside. She is feeling better than at admission. She still has some loss of appetite and overall fatigue. She did feel pretty bad last night and sweaty when she had her fevers. Vital signs reviewed General: Nontoxic, no distress, appears at stated age Cardiovascular: S1S2 reg, no murmur, positive posterior tibial pulse bilateral, Lungs: CTA bilateral, no rhonchi, no rales, no accessory muscle use Abdominal: Soft, nontender to palpation, no guarding, no appreciable organomegaly Ext: No gross muscle atrophy, no edema b/l lower extremities, no contractures Neuro: CN II-XI grossly intact, no focal neuro deficits Psych: Alert, oriented, appropriate affect Assessment/Plan: Multiple syncopal events Hypotension enroute to the emergency department -Orthostatic vitals requested and reviewed which are negative -Cardiology note reviewed: Await 2D echocardiogram. May need event monitor. - Resume norvasc 5 mg at night - hold HCTZ, and candesartan Urinary tract infection, present on admission - Await urine culture - rocephin 1 gram IV q 4 hours - 0.9 NS at 100 cc/hr Left upper quadrant pain - trial of PPI Left hip pain -Case discussed with orthopedic physician endodontic assistant. Will check back x-ray. Chronic: Hypertension Dyslipidemia GERD Prior TIA Prior syncopal episodes Acute kidney injury, resolved Hyponatremia, due to dehydration, resolved Imaging: Echocardiogram with ejection fraction 55 to 60%, no significant valvular dysfunction Left hip x-ray without any signs of osteoarthritis. Data Review: COVID/FLU/RSV- negative Labs reviewed from today include CBC and CMP which are remarkable for white blood cell count 8.1 (down from 12.4). Due to patient's continued fever and sepsis despite IV antibiotic administration will transition patient to inpatient status. DVT prophylaxis: SCDs Anticipated discharge date: Pending clinical course Anticipated discharge place: Pending clinical course This dictation was prepared using [employer] voice recognition software. T richard every attempt is made to correct errors during dictation some may still exist. Objective - Vital Signs Vital signs: Vital Signs Temp 101.5 F H 02/05/23 15:00 Pulse 100 02/05/23 15:00 Resp 16 02/05/23 15:00 BP 149/80 02/05/23 15:00 Pulse Ox 99 02/05/23 15:00 FiO2 Intake & Output 02/04/23 02/05/23 02/05/23 18:59 06:59 18:59 Intake Total 0 Balance 0 Weight 61.235 kg 61.235 kg Intake: Oral 0 - Labs CBC & Chem 7: 02/05/23 08:37 02/05/23 08:37 Labs: Abnormal Lab Results - Last 24 Hours (Table) 02/05/23 Range/Units 08:37 Glucose 102 H (74-99) mg/dL Total Protein 6.1 L (6.3-8.2) g/dL
--- NOTE | 2023-02-05 20:20 | XR ---
EXAMINATION TYPE: XR lumbar spine with bend/flex, 7 views DATE OF EXAM: 02/05/2023 Comparison: None Clinical History: 72-year-old female pain after fall, low back pain Findings: Cholecystectomy clips. 5 lumbar type vertebral bodies. Hypertrophic facet arthropathy especially mid to lower lumbar spine. There is mild multilevel degenerative disc disease. Degenerative grade 1 anter olisthesis L4-L5. There is no dynamic subluxation on flexion or extension views. Vertebral body heigh ts are preserved. Impression: 1. Mild multilevel degenerative disc disease. 2. Facet arthropathy especially mid to lower lumbar spine. 3. Fixed degenerative grade 1 anterolisthesis L4-L5. No evidence for dynamic subluxation on flexion-e xtension views. 4. No vertebral compression collapse.
[2023-02-05] MEDS: amLODIPine 5 MG TAB PO SCH (20:25)
[2023-02-06] MEDS: ACETAMINOPHEN TAB 325 MG TAB PO PRN (05:10)
[2023-02-06] MEDS: PANTOPRAZOLE 40 MG TABLET PO SCH (06:03)
[2023-02-06] MEDS: PENTOSAN POLYSULFATE SODIUM 100 MG PO SCH ×3 (06:15→15:59)
[2023-02-06 06:27] LABS: HCT 34.8 % (34.0-46.0); HGB 11.8 gm/dL (11.4-16.0); MCH 30.3 pg (25.0-35.0); MCHC 33.8 g/dL (31.0-37.0); MCV 89.8 fL (80.0-100.0); Mean Platelet Volume 7.9; Platelet Count 284 k/uL (150-450); RBC 3.88 m/uL (3.80-5.40); WBC 7.2 k/uL (3.8-10.6)
[2023-02-06 06:38] LABS: African American GFR (CKD) >90 (>60 ml/min/1.73 sqM); Anion Gap 10 mmol/L; Blood Urea Nitrogen 9 mg/dL (7-17); Calcium 8.4 mg/dL (8.4-10.2); Carbon Dioxide 21 mmol/L (22-30); Chloride 103 mmol/L (98-107); Glucose 111 mg/dL (74-99); Non-African American GFR(CKD) 80 (>60 ml/min/1.73 sqM); Potassium 3.5 mmol/L (3.5-5.1); Sodium 134 mmol/L (137-145)
--- NOTE | 2023-02-06 08:07 | P.PN ---
Subjective Progress Note Date: 02/06/23 Patient is a 72-year-old female with hypertension, dyslipidemia, and GERD who presented to the hospital after multiple syncopal episodes. On arrival to the ER her initial vital signs were within normal limits. Per report from ED her BP was low during transport down to the mid 80s and fluids were started. Initial orthostatics here were negative (obtained after fluids administered). Laboratory analysis including CBC, coags, CMP which were remarkable for white blood cell count 12.4 and sodium of 133. Urinalysis was consistent with probable urinary tract infection. CT head and cervical spine was negative for any acute process. She was given 1 L of fluid and started on Rocephin. Arrangements were made for observation. She was also complaining of some left hip pain that has been going on for the last 5 weeks. X-ray was obtained which showed no signs of osteoarthritis. Orthopedic surgery was consulted. After antibiotic administration and overnight patient continued to spike multiple fevers the highest of 103. Patient seen and examined at bedside. She continues to have some fevers over night. She is overall not feeling well. She has had a decrease in her normal amount of bowel movements. She has some nausea without vomiting. No lightheadedness, dizziness, chest pain, or shortness of breath. We discussed the results of all of her testing and all questions were answered. Vital signs reviewed General: Nontoxic, no distress, appears at stated age Cardiovascular: S1S2 reg, no murmur, positive posterior tibial pulse bilateral, Lungs: CTA bilateral, no rhonchi, no rales, no accessory muscle use Abdominal: Soft, nontender to palpation, no guarding, no appreciable organomegal y Ext: No gross muscle atrophy, no edema b/l lower extremities, no contractures Neuro: CN II-XI grossly intact, no focal neuro deficits Psych: Alert, oriented, appropriate affect Assessment/Plan: Multiple syncopal events due to dehydration Hypotension enroute to the emergency department -Cardiology: Await further recs - norvasc 5 mg at night - hold HCTZ, and candesartan Urinary tract infection, present on admission - Ongoing fevers with left-sided flank pain. Given this in the setting of her significant urinary tract infection but normal white blood cell count we'll proceed with CT abdomen and pelvis without IV contrast to assess for possible abscess within the abdominal cavity specifically the kidneys or ureteral stone - Await urine culture- currently growning gram negative bacilli - rocephin 1 gram IV q 4 hours D#e3 - 0.9 NS at 100 cc/hr Left upper quadrant pain - trial of PPI Left hip pain - Await furter ortho recs Chronic: Hypertension Dyslipidemia GERD Prior TIA Prior syncopal episodes Acute kidney injury, resolved Hyponatremia, due to dehydration, resolved Imaging: Echocardiogram with ejection fraction 55 to 60%, no significant valvular dysfunction Left hip x-ray without any signs of osteoarthritis. Data Review: Labs reviewed from today includes CBC and basic metabolic profile which are unremarkable. T-max in the last 24 hours 101.5 DVT prophylaxis: SCDs Anticipated discharge date: Pending clinical course Anticipated discharge place: Pending clinical course This dictation was prepared using [employer] voice recognition software. Though every attempt is made to correct errors during dictation some may still exist. Objective - Vital Signs Vital signs: Vital Signs Temp 97.6 F 02/06/23 07:00 Pulse 79 02/06/23 07:00 Resp 20 02/06/23 07:00 BP 113/67 02/06/23 07:00 Pulse Ox 98 02/06/23 07:00 FiO2 Intake & Output 02/05/23 02/06/23 02/06/23 18:59 06:59 18:59 Intake Total 0 Balance 0 Weight 61.235 kg Intake: Oral 0 Other: Voiding Method Toilet # Voids 5 3 - Labs CBC & Chem 7: 02/06/23 05:47 02/06/23 05:47 Labs: Abnormal Lab Results - Last 24 Hours (Table) 02/05/23 02/05/23 02/06/23 Range/Units 08:37 08:37 05:47 Sodium 134 L (137-145) mmol/L Carbon Dioxide 21 L (22-30) mmol/L Glucose 102 H 111 H (74-99) mg/dL Hemoglobin A1c 6.2 H (<=6.0) % Total Protein 6.1 L (6.3-8.2) g/dL Microbiology - Last 24 Hours (Table) 02/04/23 08:06 Urine Culture - Preliminary Urine,Clean Catch Gram Neg Bacilli 02/04/23 12:55 Blood Culture - Preliminary Blood 02/04/23 12:59 Blood Culture - Preliminary Blood
[2023-02-06] MEDS: ASPIRIN 81 MG PO SCH (08:20)
[2023-02-06] MEDS: CHOLECALCIFEROL 25 MCG (1000 IU) TABLET PO SCH (08:20)
--- NOTE | 2023-02-06 10:37 | CT ---
EXAMINATION TYPE: CT abdomen pelvis wo con DATE OF EXAM: 02/06/2023 COMPARISON: 09/20/2020 HISTORY: pain, UTI, concern for stone, fever CT DLP: 769 mGycm Examination of the solid and hollow viscera is limited given the lack of contrast. FINDINGS: LUNG BASES: No evidence for nodule. No evidence for infiltrate. LIVER/GB: The gallbladder is surgically absent No space-occupying hepatic lesion. PANCREAS: No pancreatic mass identified. No inflammatory process seen. SPLEEN: No evidence for splenomegaly. No intrasplenic lesions seen. ADRENALS: No adrenal nodules identified. No evidence for thickening. KIDNEYS: There is left renal edema and mild perinephric stranding. I do not see evidence for obstruct ing calculus. Correlate for pyelonephritis. Mild urinary bladder wall thickening may reflect cystitis . No evidence for renal mass. No nephrolithiasis. No hydronephrosis. BOWEL: Appendix has a normal appearance. No evidence of bowel obstruction. No inflammatory process. Lymph nodes: No evidence for adenopathy greater than 1 cm. Abdominal aorta: Atheromatous changes seen. No evidence for aneurysm. Genital organs: No significant abnormality. Other: No significant abnormality. IMPRESSION: There is left renal edema and mild perinephric stranding. I do not see evidence for obstructing calcu deion. Correlate for pyelonephritis. Mild urinary bladder wall thickening may reflect cystitis.
--- NOTE | 2023-02-06 10:53 | P.PN ---
Subjective Progress Note Date: 02/06/23 Principal diagnosis: Low back pain Patient was seen at bedside this morning lying in semirecumbent position and was present during [place]. Patient says her low back and left leg are doing much better today than yesterday. Patient says she has been up walking on the removal of the since yesterday with improvement in the pain. Patient does not recall of the one-time dose of Flexeril helped much with her symptoms in her back/leg. Patient says she is still having some fevers. Patient denies any other changes at this time. Patient denies any other orthopedic complaints. Objective - Vital Signs Vital signs: Vital Signs Temp 97.6 F 02/06/23 07:00 Pulse 75 02/06/23 08:00 Resp 20 02/06/23 08:00 BP 113/67 02/06/23 07:00 Pulse Ox 98 02/06/23 07:00 FiO2 Intake & Output 02/05/23 02/06/23 02/06/23 18:59 06:59 18:59 Intake Total 0 Balance 0 Weight 61.235 kg Intake: Oral 0 Other: Voiding Method Toilet Toilet # Voids 5 3 - Exam Inspection: Negative for any significant ecchymosis/erythema/open wound/open fractures. Sensation: Equal, symmetric, bilaterally intact throughout the upper and lower extremities. Palpation: Moderate TTP over left SI joint. fair amount of TTP over right SI hai nt and left lower extremity over upper leg Range of motion: Patient has full range of motion throughout bilateral upper extremities on exam. Patient has full range of motion throughout bilateral lo wer extremities on exam. Motor: 4+/5 in all major motor groups in bilateral upper and lower extremities Neurovascular status: Radial pulses intact, 2+ bilaterally. Cap refill under 3 seconds in digits of the upper extremities. Special tests: Negative Homans bilaterally. Negative clonus bilaterally. Positive straight-leg raise on the left lower extremity - Labs CBC & Chem 7: 02/06/23 05:47 02/06/23 05:47 Labs: Abnormal Lab Results - Last 24 Hours (Table) 02/05/23 02/06/23 Range/Units 08:37 05:47 Sodium 134 L (137-145) mmol/L Carbon Dioxide 21 L (22-30) mmol/L Glucose 111 H (74-99) mg/dL Hemoglobin A1c 6.2 H (<=6.0) % Microbiology - Last 24 Hours (Table) 02/04/23 08:06 Urine Culture - Preliminary Urine,Clean Catch Gram Neg Bacilli 02/04/23 12:55 Blood Culture - Preliminary Blood 02/04/23 12:59 Blood Culture - Preliminary Blood Assessment and Plan Assessment: 1. Degenerative disc disease; lumbar spondylosis; L4-L5 anterolisthesis Plan: 1. Degenerative disc disease; lumbar spondylosis; L4-L5 anterolisthesis - X-ray lumbar spine reveals degenerative disc disease was lumbar facet arthropathy and grade 1 anterolisthesis L4 to L5. Negative for any significant subluxations on flexion/extension. Negative for any fractures. Patient symptoms in the back and upper extremity improving since yesterday. Patient was examined bedside this morning. Ice packs and heat packs as needed for symptom control. Recommend PT/OT daily and pain medication as needed. Patient is stable from orthopedic standpoint for discharge recommend patient to follow-up in the outp atient setting with Dr. Elizabeth as needed. Orthopedics is signing off. Please do not hesitate to contact us for any further questions. 2. Appreciate medical management 3. Pain management - tylenol; flexeril 4. DVT prophylaxis - aspirin 5. GI prophylaxis - protonix 6. PT/OT - weightbearing as tolerated 7. Encourage incentive spirometer use 8. Appreciate consult Time with Patient: Less than 30
--- NOTE | 2023-02-06 11:46 | P.PN ---
Subjective Progress Note Date: 02/06/23 Consult reason: sycope History of present illness: History of present illness: This is a 72-year-old female patient of Dr. Nolasco with past medical history of hypertension, hyperlipidemia,. We have been asked to evaluate the patient for syncopal episode. Patient states that she was standing at the sink and was feeling woozy and then she turned and was feeling dizzy ended up passing out. Has not had any passing out in the past. She developed fever on Saturday along with pressure in the suprapubic area and flank pain with decreased appetite. Patient came into the emergency center and is been diagnosed with UTI and sepsis. Orthostatics were checked in the emergency center which were negative. She is status post one half liters of IV fluid. Patient denies any alcohol use, no smoking is no marijuana use. Patient states that her fever broke around 2 AM. Echocardiogram has been taken. EKG sinus rhythm with no acute ST changes. Chest x-ray: No acute process CAT scan of the brain and cervical spine: No acute process. Hip x-ray no acute abnormality WBC 12.4, hemoglobin 13.5, platelet count 328. INR 1. Currently electrolytes and renal function are normal with creatinine of 0.87 down from 1.1. Blood sugar 102. Liver function tests are normal. Troponin negative 1. Urinalysis positive for nitrite and leukoesterase large, urine bacteria moderate. Influenza A, influenza B, RSV, Covid 19 not detected. Home cardiac medications: Amlodipine 5 g at bedtime, aspirin 81 mg daily, candesartan 16 mg daily, hydrochlorothiazide 12.5 mg daily Echocardiogram 04/21/2021: EF 55-60%. No aortic stenosis or regurgitation. Mild mitral regurgitation. Trace tricuspid regurgitation. Cardiac catheterization 2012 normal coronaries. Exercise stress test 10/08/2022 was nondiagnostic secondary to baseline EKG abnormalities. Poor exercise tolerance. 02/06: patient is seen today in follow-up on the observation unit. States that she feels much better today.temperature max over the past 24 hours 101.5.heart rate is in the 70s and 80s, blood pressure 113/67. Pulse ox 98% on room air.leukocytosis has resolved. Creatinine 0.76 and potassium 3.5.urine cultures positive for gram-negative bacilli. Blood culture no growth at 24 hours. ECHOCARDIOGRAM REVEALS ef OF 55-60%, MILD CONCENTRIC LEFT HYPERTROPHY. rESULTS HAVE BEEN REVIEWED WITH THE PATIENT. Physical examination: Gen: This is a 72 year old female resting in bed and appears comfortable. VS: reviewed temperature max 100.3, heart rate max 106 currently 83, blood pressure 124/78, pulse ox 97% on room air. HEENT: Head is atraumatic, normocephalic. Pupils equal, round. Sclerae is anicteric. NECK: Supple. No JVD. LUNGS: Clear to auscultation. No wheezes or rhonchi. No intercostal retractions. HEART: Regular rate and rhythm. No murmur. ABDOMEN: Soft suprapubic tenderness. EXTREMITIES: No pedal edema. No calf tenderness. Dorsalis pedis +2 bilaterally. NEUROLOGICAL: Patient is awake, alert and oriented x3. Assessment: Urinary tract infection and sepsis Syncopal episode most likely secondary to sepsis Hypertension Hyperlipidemia Plan: Resume patient's blood pressure medications as tolerated, resume amlodipine first Cardiology will sign off this case and follow on an as-needed basis. Please reconsult for any new concerns. Patient may follow-up in the office in one to 2 weeks. Nurse practitioner note has been reviewed, I agree with documented findings and plan of care. Patient was seen and examined. Objective - Vital Signs Vital signs: Vital Signs Temp 97.6 F 02/06/23 07:00 Pulse 75 02/06/23 08:00 Resp 20 02/06/23 08:00 BP 113/67 02/06/23 07:00 Pulse Ox 98 02/06/23 07:00 FiO2 Intake & Output 02/05/23 02/06/23 02/06/23 18:59 06:59 18:59 Intake Total 0 Balance 0 Weight 61.235 kg Intake: Oral 0 Other: Voiding Method Toilet Toilet # Voids 5 3 - Labs CBC & Chem 7: 02/06/23 05:47 02/06/23 05:47 Labs: Abnormal Lab Results - Last 24 Hours (Table) 02/05/23 02/06/23 Range/Units 08:37 05:47 Sodium 134 L (137-145) mmol/L Carbon Dioxide 21 L (22-30) mmol/L Glucose 111 H (74-99) mg/dL Hemoglobin A1c 6.2 H (<=6.0) % Microbiology - Last 24 Hours (Table) 02/04/23 08:06 Urine Culture - Preliminary Urine,Clean Catch Gram Neg Bacilli 02/04/23 12:55 Blood Culture - Preliminary Blood 02/04/23 12:59 Blood Culture - Preliminary Blood
[2023-02-06] MEDS: SODIUM CHLORIDE 0.9% 1,000 ML IV SCH (17:19)
[2023-02-06] MEDS: amLODIPine 5 MG TAB PO SCH (20:31)
[2023-02-07] MEDS: ACETAMINOPHEN TAB 325 MG TAB PO PRN (01:51)
[2023-02-07] MEDS: PENTOSAN POLYSULFATE SODIUM 100 MG PO SCH ×2 (06:17→12:16)
[2023-02-07] MEDS: PANTOPRAZOLE 40 MG TABLET PO SCH (06:17)
[2023-02-07] MEDS: ASPIRIN 81 MG PO SCH (08:45)
[2023-02-07] MEDS: CHOLECALCIFEROL 25 MCG (1000 IU) TABLET PO SCH (08:45)
[2023-02-07 09:08] LABS: BUN/Creat Ratio 8.71 Ratio (12.00-20.00); Blood Urea Nitrogen 6.1 mg/dL (9.0-27.0); Calcium 8.5 mg/dL (8.7-10.3); Carbon Dioxide 22.8 mmol/L (21.6-31.8); Chloride 107 mmol/L (96-109); Glucose 122 mg/dL (70-110); Potassium 3.6 mmol/L (3.5-5.5); Sodium 139 mmol/L (135-145)
[2023-02-07 09:18] LABS: HCT 32.6 % (37.2-46.3); HGB 11.1 g/dL (12.0-15.0); MCH 29.5 pg (27.0-32.0); MCV 86.7 FL (80.0-97.0); Mean Platelet Volume 10.4 FL (9.5-12.2); NRBC Per 100 WBC 0 X 10*3/uL (0.00-0.01); Platelet Count 309 X 10*3/uL (140-440); RBC 3.76 X 10*6/uL (4.10-5.20); RDW 13.7 % (11.5-14.5); WBC 6.71 X 10*3/uL (4.50-10.00)
--- NOTE | 2023-02-07 13:23 | P.DS ---
Providers Date of admission: 02/05/23 08:55 Expected date of discharge: 02/07/23 Attending physician: Nata Dhaliwal DO Consults: 02/04/23 12:34 Consult Physician Routine Consulting Provider: Jose M Nolasco Consult Reason/Comments: syncope Do you want consulting provider notified?: Yes 02/04/23 12:36 Consult Physician Routine Consulting Provider: Jimmy Gardner Consult Reason/Comments: hip pain left X 5 weeks Do you want consulting provider notified?: Yes Primary care physician: Mark Wilkinson MD Hospital Course: Patient is a 72-year-old female with hypertension, dyslipidemia, and GERD who presented to the hospital after multiple syncopal episodes. On arrival to the ER her initial vital signs were within normal limits. Per report from ED her BP was low during transport down to the mid 80s and fluids were started. Initial orthostatics here were negative (obtained after fluids administered). Laboratory analysis including CBC, coags, CMP which were remarkable for white blood cell count 12.4 and sodium of 133. Urinalysis was consistent with probable urinary tract infection. CT head and cervical spine was negative for any acute process. She was given 1 L of fluid and started on Rocephin. She was also complaining of some left hip pain that has been going on for the last 5 weeks. X-ray was obtained which showed no signs of osteoarthritis. Lumb ar XR shows multilevel DJD, grade 1 anterolisthesis L4-L5. Orthopedic surgery was consulted, recommended outpatient follow up with Dr. Elizabeth. Urine culture came back + E. coli. Tmax 103 on 02/04. Tmax 101.5 on 02/05. Tmax 100.8 on 02/06. Tmax 100.3 on 02/07. Rocephin was switched to Ciprofloxacin to complete a total of 7 days antibiotics on discharge. Cardiology consulted for sycopal episode, attributed likely secondary to UTI sepsis, recommended resuming BP medications as tolerated. Echo showed EF 55-60% with mild concentric LVH. She was advised to continue Amlodipine on discharge an d follow up with Cardiology with BP logs to possibly restart her candesartan and HCTZ. 02/07 Patient was seen and examined. Reports feeling well. No more dizziness. Reports back to baseline. Plan to discharge home today on Ciprofloxacin 250 mg PO BID x 4 days (total 7 days) and advised to hold Candesartan and HCTZ until follow up with Cardiology. Patient verbalized understanding of the plan. Pertinent studies as above. Vital signs reviewed General: Nontoxic, no distress, appears at stated age Cardiovascular: S1S2 reg, no murmur Lungs: CTA bilateral, no rhonchi, no rales, no accessory muscle use Ext: No gross muscle atrophy, no edema b/l lower extremities, no contractures Neuro: no focal neuro deficits Psych: Alert, oriented, appropriate affect Discharge Diagnosis: Multiple syncopal events due to dehydration Hypotension enroute to the emergency department Urinary tract infection, present on admission Grade 1 anterolisthesis L4-L5 This complex discharge took 35 minutes to complete. Patient Condition at Discharge: Stable Plan - Discharge Summary Discharge Rx Participant: Yes New Discharge Prescriptions: New Ciprofloxacin HCl [Cipro] 250 mg PO Q12H 4 Days #8 tab Continue Aspirin [Adult Low Dose Aspirin EC] 81 mg PO DAILY #30 tablet. Pentosan Polysulfate Sodium [Elmiron] 100 mg PO TID Calcium Carbonate [Calcium] 600 mg PO DAILY amLODIPine [Norvasc] 5 mg PO HS Cholecalciferol [Vitamin D3 (25 Mcg = 1000 Iu)] 25 mcg PO DAILY Discontinued Candesartan [Atacand] 16 mg PO DAILY hydroCHLOROthiazide [Hydrodiuril] 12.5 mg PO DAILY Discharge Medication List Aspirin [Adult Low Dose Aspirin EC] 81 mg PO DAILY #30 tablet. 07/29/16 [Rx] Calcium Carbonate [Calcium] 600 mg PO DAILY 02/04/23 [History] Cholecalciferol [Vitamin D3 (25 Mcg = 1000 Iu)] 25 mcg PO DAILY 02/04/23 [History] Pentosan Polysulfate Sodium [Elmiron] 100 mg PO TID 02/04/23 [History] amLODIPine [Norvasc] 5 mg PO HS 02/04/23 [History] Ciprofloxacin HCl [Cipro] 250 mg PO Q12H 4 Days #8 tab 02/07/23 [Rx] Follow up Appointment(s)/Referral(s): Yadiel Juarez MD [Medical Doctor] - As Needed (3 month follow up) Mark Wilkinson MD [Primary Care Provider] - 1-2 days Reinaldo Elizabeth DO [Doctor of Osteopathic Medicine] - 2 Weeks Discharge Disposition: HOME SELF-CARE
[2023-02-07 14:18] VITALS: BP 138/79; PULSE 90; RESP 16; TEMP 98.4
[2023-02-07] MEDS: SODIUM CHLORIDE 0.9% 1,000 ML IV SCH (14:44)
== END 2023-02-07 14:55 | disposition home or self-care (01) | DRG 872 ==
LOC: EC 07:55 → 6NMEDSUR 11:21 → OBSVTOIN 02-05 08:55 → 6NMEDSUR 02-06 01:31
PROVIDERS: ADMIT Internal Medicine; ATTEND Internal Medicine
DX: A41.51 Sepsis due to Escherichia coli [E. coli] (principal); N39.0 Urinary tract infection, site not specified; E87.1 Hypo-osmolality and hyponatremia; N17.9 Acute kidney failure, unspecified; E86.0 Dehydration; E78.5 Hyperlipidemia, unspecified; I10 Essential (primary) hypertension; K21.9 Gastro-esophageal reflux disease without esophagitis; K52.9 Noninfective gastroenteritis and colitis, unspecified; M43.16 Spondylolisthesis, lumbar region; M47.816 Spondylosis without myelopathy or radiculopathy, lumbar region; Z79.899 Other long term (current) drug therapy; Z79.82 Long term (current) use of aspirin; Z86.73 Personal history of transient ischemic attack (TIA), and cerebral infarction without residual deficits; Z28.311 Partially vaccinated for COVID-19; Z28.21 Immunization not carried out because of patient refusal; H40.9 Unspecified glaucoma; Z11.52 Encounter for screening for COVID-19; I95.9 Hypotension, unspecified
CPT/HCPCS: 36415; 70450; 71046; 72114; 72125; 73502; 74176; 80048; 80053; 81001; 83036; 83605; 83735; 84100; 84484; 85025; 85027; 85610; 85730; 87040; 87077; 87086; 87186; 87636; 93005; 93306; 96361; 96374; 99285

== ENCOUNTER → 2023-12-10 | Outpatient (CLI) | payer MEDICARE ==
--- NOTE | 2023-12-10 12:17 | MM ---
Reason for Exam: Screening (asymptomatic). Last screening mammogram was performed 12 month(s) ago. Patient History: Menarche at age 14. First Full-Term at age 27. Postmenopausal. Benign Cyst Aspiration on the left side. 01/28/2009, Benign Excisional Biopsy on the right side. 01/14/2009, High risk Core Biopsy on the right side. Risk Values: Rachel 5 year model risk: 2.9%. NCI Lifetime model risk: 7.5%. Prior Study Comparison: 10/20/2020 Bilateral Screening Mammogram, [facility]. 11/16/2021 Bilateral MG 3D screening mammo w/cad, [facility]. 12/06/2022 Bilateral MG 3D screening mammo w/cad, [facility]. Tissue Density: The breasts are heterogeneously dense, which may obscure small masses. Findings: Analyzed By CAD. There is no suspicious group of microcalcifications or new suspicious mass in either breast. Overall Assessment: Benign, BI-RAD 2 Management: Screening Mammogram of both breasts in 1 year. . Patient should continue monthly self-breast exams. A clinical breast exam by your physician is recommended on an annual basis. This exam should not preclude additional follow-up of suspicious palpable abnormalities. Note on Rachel scores and lifetime risk: 1. A Rachel score greater than 3% is considered moderate risk. If this is the case, consider specialist referral to assess eligibility for a risk reducing agent. 2. If overall lifetime risk for the development of breast cancer is 20% or higher, the patient may qualify for future screening with alternating mammogram and breast MRI. [facility], , 12/10/2023 12:14 PM. Electronically signed and approved by: Jose Espana M.D. Radiologis
== END | disposition home or self-care (01) ==
LOC: RADMAMWWP 07:12
PROVIDERS: ATTEND Internal Medicine
DX: Z12.31 Encounter for screening mammogram for malignant neoplasm of breast
CPT/HCPCS: 77063; 77067

== ENCOUNTER → 2024-01-30 | Outpatient (CLI) | payer MEDICARE ==
[2024-01-30 16:02] LABS: Basophils # (A) 0.06 X 10*3/uL (0.00-0.10); Basophils % (A) 1.1 %; Eosinophils # (A) 0.06 X 10*3/uL (0.04-0.35); Eosinophils % (A) 1.1 %; HCT 43.8 % (37.2-46.3); HGB 14.2 g/dL (12.0-15.0); Lymphocytes # (A) 2.05 X 10*3/uL (0.90-5.00); MCH 29.1 pg (27.0-32.0); MCHC 32.4 g/dL (32.0-37.0); MCV 89.8 FL (80.0-97.0); Mean Platelet Volume 10.9 FL (9.5-12.2); Monocytes # (A) 0.46 X 10*3/uL (0.20-1.00); Monocytes % (A) 8.7 %; NRBC Per 100 WBC 0 X 10*3/uL (0.00-0.01); Neutrophils # (A) 2.62 X 10*3/uL (1.80-7.70); Neutrophils % (A) 49.9 %; Platelet Count 348 X 10*3/uL (140-440); RBC 4.88 X 10*6/uL (4.10-5.20); RDW 14.1 % (11.5-14.5); WBC 5.26 X 10*3/uL (4.50-10.00)
[2024-01-30 16:26] LABS: ALT 39 U/L (8-44); AST 30 U/L (13-35); Albumin 4.7 g/dL (3.8-4.9); Albumin/Globulin Ratio 1.96 Ratio (1.60-3.17); Alkaline Phosphatase 87 U/L (41-126); BUN/Creat Ratio 17.75 Ratio (12.00-20.00); Blood Urea Nitrogen 14.2 mg/dL (9.0-27.0); Calcium 10.1 mg/dL (8.7-10.3); Carbon Dioxide 25.7 mmol/L (21.6-31.8); Chloride 98 mmol/L (96-109); Chol/HDL Ratio 2.05 Ratio; Globulin 2.4 g/dL (1.6-3.3); Glucose 107 mg/dL (70-110); LDL Cholesterol,Calculated 78.7 mg/dL (0.0-131.0); Sodium 135 mmol/L (135-145); Total Bilirubin 0.4 mg/dL (0.3-1.2); Total Protein 7.1 g/dL (6.2-8.2); VLDL Calculation 15.94 mg/dL (5.00-40.00)
== END | disposition home or self-care (01) ==
LOC: LABWHC1 10:27
PROVIDERS: ATTEND Internal Medicine
DX: Z00.00 Encounter for general adult medical examination without abnormal findings (principal); M85.80 Other specified disorders of bone density and structure, unspecified site; R73.9 Hyperglycemia, unspecified
CPT/HCPCS: 36415; 80053; 80061; 82306; 83036; 83735; 84443; 85025

== ENCOUNTER → 2024-03-18 | Outpatient (CLI) | payer MEDICARE ==
--- NOTE | 2024-03-18 16:52 | US ---
EXAMINATION TYPE: US kidneys/renal and bladder DATE OF EXAM: 03/18/2024 COMPARISON: CT abdomen pelvis February 06, 2023 CLINICAL INDICATION: Female, 73 years old with history of R10.2 PELVIC PRESSURE; frequency of urinati on TECHNIQUE: Grayscale imaging of the bilateral kidneys and urinary bladder: FINDINGS: EXAM MEASUREMENTS: Right Kidney: 8.4x4.1x4.4 cm Left Kidney: 8.7x5.2x4.6 cm Post Void Residual Volume: 20.8 mL Right Kidney: No hydronephrosis or masses seen Left Kidney: No hydronephrosis or masses seen Bladder: wnl Bilateral Jets seen: right jet seen Normal Post Void Residual: Yes There is no evidence for hydronephrosis at this point in time. No nephrolithiasis is seen. No iliana s are identified. The urinary bladder is anechoic. exam limited by bowel gas IMPRESSION: Suboptimal study without hydronephrosis seen bilaterally. [facility], , 03/18/2024 4:49 PM
== END | disposition home or self-care (01) ==
LOC: RADUSWWP 16:04
PROVIDERS: ATTEND Internal Medicine
DX: R10.2 Pelvic and perineal pain (principal); R35.0 Frequency of micturition
CPT/HCPCS: 76770

== ENCOUNTER → 2024-05-05 | Outpatient (CLI) | payer MEDICARE ==
[2024-05-05 15:07] LABS: ALT 64 U/L (8-44); AST 51 U/L (13-35); Chol/HDL Ratio 2.16 Ratio; LDL Cholesterol,Calculated 75.9 mg/dL (0.0-131.0)
== END | disposition home or self-care (01) ==
LOC: LABWHC1 11:58
PROVIDERS: ATTEND Internal Medicine Interventional Cardiology
DX: E78.2 Mixed hyperlipidemia (principal)
CPT/HCPCS: 36415; 80061; 84450; 84460

== ENCOUNTER → 2024-08-25 | Outpatient (CLI) | payer MEDICARE ==
[2024-08-25 14:33] LABS: African American GFR (CKD) >90 (>60 ml/min/1.73 sqM); Albumin 4.6 g/dL (3.5-5.0); Anion Gap 12 mmol/L; Blood Urea Nitrogen 9 mg/dL (7-17); Calcium 9.9 mg/dL (8.4-10.2); Carbon Dioxide 22 mmol/L (22-30); Chloride 105 mmol/L (98-107); Glucose 90 mg/dL (74-99); Non-African American GFR(CKD) >90 (>60 ml/min/1.73 sqM); Sodium 139 mmol/L (137-145)
[2024-08-25 14:44] LABS: Potassium 4.8 mmol/L (3.5-5.1)
--- NOTE | 2024-08-25 17:19 | CT ---
EXAMINATION TYPE: CT abdomen pelvis wo/w con CT DLP: 853.2 mGycm, Automated exposure control for dose reduction was used. DATE OF EXAM: 08/25/2024 4:13 PM COMPARISON: CT abdomen pelvis 02/06/2025, renal ultrasound 03/18/2024 CLINICAL INDICATION:Female, 74 years old with history of R10.9 UNSPECIFIED ABDOMINAL PAIN; abdominal pain, h/o IBS TECHNIQUE: Standard CT of the abdomen and pelvis before and after the uneventful administration of 100 cc of Isovue-300 intravenously. Oral contrast was administered.. Coronal and sagittal reformats w ere performed. FINDINGS: LOWER CHEST: Minimal right basilar subsegmental atelectasis. ABDOMEN LIVER: Unremarkable GALLBLADDER AND BILE DUCTS: The gallbladder is surgically absent. No biliary ductal dilatation. PANCREAS: Unremarkable. SPLEEN: Unremarkable. ADRENAL GLANDS: Unremarkable. KIDNEYS AND URETERS: No evidence of hydronephrosis or renal calculus. The kidneys enhance symmetrical ly. Contrast is demonstrated within both collecting systems on the delayed phase. PELVIS BLADDER: Incompletely distended but grossly unremarkable. REPRODUCTIVE: Unremarkable. ABDOMEN & PELVIS STOMACH AND BOWEL: Stomach and duodenum are unremarkable. Sigmoid diverticulosis without evidence for acute diverticulitis. No focal wall thickening or surrounding inflammatory changes. Enteric contrast reaches the splenic flexure. The appendix is within normal limits. No evidence of bowel obstruction. PERITONEUM: No evidence of pneumoperitoneum or free fluid. VASCULATURE: Mild atherosclerotic calcifications are present throughout the abdominal aorta and its b ranches. No evidence of aortic aneurysm. MUSCULOSKELETAL: No acute osseous abnormalities LYMPH NODES: No evidence for lymphadenopathy. SOFT TISSUE/ABDOMINAL WALL: Unremarkable IMPRESSION: 1. No CT evidence for acute abdominal/pelvic process. 2. Sigmoid diverticulosis without evidence for acute diverticulitis. [facility], , 08/25/2024 5:17 PM
== END | disposition home or self-care (01) ==
LOC: RADCTMAIN 13:24
PROVIDERS: ATTEND Internal Medicine Gastroenterology
DX: K57.30 Diverticulosis of large intestine without perforation or abscess without bleeding (principal)
CPT/HCPCS: 80069; 74178; 36415; Q9967